=== PATIENT | female | born 1980 | race African-American/Black ===

== ENCOUNTER 2016-08-28 11:44 | Emergency (ER) | payer OTHER ==
[2016-08-28 11:49] VITALS: BMI 30.2
--- NOTE | 2016-08-28 12:57 | PDOC ---
History of Present Illness - History of Present Illness Initial Comments: 08/28/16 13:13 Patient is a 36 year old female with significant medical hx of uterine fibroids , ovarian cysts, and ectopic who is presenting to the ED with five days of heavy vaginal bleeding and abdominal cramping. Patient states her menses arrived two weeks early with unusual heavy bleeding and passing blood clots. The patient normally saturates 4-5 pads through a cycle, but this time she has saturated 10 pads and tampons per day, changing almost every hour. The patient also complains of severe abdominal cramping that has worsened over the course of her menses. The patient is currently sexually active. Denies fever, chills, nausea, vomiting, diarrhea. ; 1 miscarriage and 1 ectopic <Sierra Evans - Demarco Filed: 08/28/16 14:59> - General History Source: Patient Exam Limitations: No Limitations <Chu Sawyer - Last Filed: 08/28/16 15:37> - General Chief Complaint: Vaginal Bleeding Stated Complaint: ABD PAIN Time Seen by Provider: 08/28/16 12:30 Past History <Sierra Evans - Last Filed: 08/28/16 14:59> - Past Medical History Anemia: No Asthma: No Cancer: No Cardiac Disorders: No CVA: No COPD: No CHF: No Dementia: No Diabetes: No GI Disorders: No Disorders: No HTN: No Hypercholesterolemia: No Liver Disease: No Suicide Attempt (Hx): No Seizures: No Thyroid Disease: No Other medical history: ectopic preg - Surgical History Abdominal Surgery: No Appendectomy: No Cardiac Surgery: No Cholecystectomy: No Lung Surgery: No Neurologic Surgery: No Orthopedic Surgery: No - Reproductive History (#): 4 Para: 1 Cervical CA: No Dysfunctional Uterine Bleeding: No Ectopic : Yes Endometrial CA: No Polycystic Ovaries: No Therapeutic (s) & number: Yes (1) Tubal Ligation: No Spontaneous : 2 - Psycho/Social/Smoking Cessation Hx Anxiety: No Suicidal Ideation: No Smoking Status: Yes Smoking History: Former smoker Have you smoked in the past 12 months: Yes Number of Cigarettes Smoked Daily: 3 Information on smoking cessation initiated: No 'Breaking Loose' booklet given: 07/31/13 Hx Alcohol Use: No Drug/Substance Use Hx: No Substance Use Type: None Hx Substance Use Treatment: No <Chu Sawyer Filed: 08/28/16 15:37> - Past Medical History Allergies/Adverse Reactions: Allergies Allergy/AdvReac Type Severity Reaction Status Date / Time No Known Drug Allergies Allergy Verified 08/28/16 11:47 Home Medications: Ambulatory Orders No Home Medications 0 dose .ROUTE UTDICT 07/31/13 Ciprofloxacin [Cipro -] 250 mg PO BID #6 tablet 08/01/14 Phenazopyridine HCl [Pyridium] 200 mg PO TID PRN #10 tablet 08/01/14 Naproxen [Naprosyn -] 500 mg PO BID PRN #20 tablet 08/28/16 Review of Systems - Review of Systems Comments:: 08/28/16 13:13 GENERAL/CONSTITUTIONAL: No fever or chills. No weakness. HEAD, EYES, EARS, NOSE AND THROAT: No change in vision. No ear pain or discharge. No sore throat. CARDIOVASCULAR: No chest pain or shortness of breath. RESPIRATORY: No cough, wheezing, or hemoptysis. GASTROINTESTINAL: Abdominal cramping. No nausea, vomiting, diarrhea or constipation. GENITOURINARY: Vaginal bleeding. No dysuria, frequency, or change in urination. MUSCULOSKELETAL: No joint or muscle swelling or pain. No neck or back pain. SKIN: No rash NEUROLOGIC: No headache, vertigo, loss of consciousness, or change in strength/ sensation. <Sierra Evans - Last Filed: 08/28/16 14:59> *Physical Exam - Vital Signs Last Vital Signs Temp Pulse Resp BP Pulse Ox 97.7 F 62 18 125/85 100 08/28/16 11:47 08/28/16 11:47 08/28/16 11:47 08/28/16 11:47 08/28/16 11:47 - Physical Exam Comments: 08/28/16 13:14 GENERAL: Awake, alert, and fully oriented, in no acute distress HEAD: No signs of trauma EYES: PERRLA, EOMI, sclera anicteric, conjunctiva clear ENT: Auricles normal inspection, hearing grossly normal, nares patent, oropharynx clear without exudates. Moist mucosa NECK: Normal ROM, supple, no lymphadenopathy, JVD, or masses LUNGS: Breath sounds equal, clear to auscultation bilaterally. No wheezes, and no crackles HEART: Regular rate and rhythm, normal S1 and S2, no murmurs, rubs or gallops ABDOMEN: Soft, nontender, normoactive bowel sounds. No guarding, no rebound. No masses EXTREMITIES: Normal range of motion, no edema. No clubbing or cyanosis. No cords, erythema, or tenderness NEUROLOGICAL: Cranial nerves II through XII grossly intact. Normal speech, normal gait SKIN: Warm, Dry, normal turgor, no rashes or lesions noted. ENDOCRINE: No increased thirst. No abnormal weight change. HEMATOLOGIC/LYMPHATIC: No anemia, easy bleeding, or history of blood clots. ALLERGIC/IMMUNOLOGIC: No hives or skin allergy. PELVIC: No CMT. No adnexal tenderness. Os is closed. No blood in the vault. <Sierra Evans - Last Filed: 08/28/16 14:59> - Vital Signs Last Vital Signs Temp Pulse Resp BP Pulse Ox 97.7 F 62 18 125/85 100 08/28/16 11:47 08/28/16 11:47 08/28/16 11:47 08/28/16 11:47 08/28/16 11:47 <Chu Sawyer - Last Filed: 08/28/16 15:37> ED Treatment Course - LABORATORY CBC & Chemistry Diagram: 08/28/16 13:00 08/28/16 14:00 - RADIOLOGY Radiograph Interpretation: 08/28/16 14:59 Transvaginal US Impression: Fibroid uterus as described. Clinical correlation and follow-up recommended. Reported By: Juan Alberto Bird MD <Sierra Evans - Last Filed: 08/28/16 14:59> - LABORATORY CBC & Chemistry Diagram: 08/28/16 13:00 08/28/16 14:00 <Chu Sawyer - Last Filed: 08/28/16 15:37> Medical Decision Making - Medical Decision Making 08/28/16 12:55 A portion of this note was documented by scribe services under my direction. I have reviewed the details of the note, within reason, and agree with the documentation with the following case summary and management plan written by me. Patient treated in the ED. Nursing notes are reviewed and incorporated into the medical decision-making. Vital signs reviewed. Peripheral IV access obtained by the nurse, laboratory studies are drawn and sent, reviewed and interpreted by myself. Vital Signs Temp Pulse Resp BP Pulse Ox 97.7 F 62 18 125/85 100 08/28/16 11:47 08/28/16 11:47 08/28/16 11:47 08/28/16 11:47 08/28/16 11:47 36-year-old female patient with no medical history, 0-1, with one history of miscarriage and ectopic presents with vaginal bleeding. Patient reports that she typically has her periods once every month. However, last menstrual period was 2 weeks ago. She noticed in the last several days that she is having heavier bleeding than usual with up to 8-10 pads per day. She reported severe abdominal cramping. She is currently sexually active and may potentially be . Came into the ED for further evaluation. Differential includes threatened miscarriage, ectopic , dysfunctional uterine bleeding. We'll obviously need a test. Urine prexy test positive, we'll need labs including beta hCG, type and screen and transvaginal ultrasound. If urine preg test negative, we'll obtain chest vaginal ultrasound, urinalysis and reassess. 08/28/16 15:34 Ultrasound reviewed: Nabothian cysts and uterine fibroids. Labs reviewed. Beta HCG negative. UA unremarkable I suspect that the bleed is likely secondary to her uterine fibroids or potentially dysfunctional uterine bleeding. 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 If the symptoms are persistent, patient should consider potential oral control pills or discuss case with patient' s BITUMINOUS PAVING MACHINE OPERATOR about potential hysterectomy in the future as an elective procedure. Patient verbalizes understanding agrees with plan. I discussed the physical exam findings, ancillary test results and final diagnoses with the patient. I answered all of the patient's questions. The patient was satisfied with the care received and felt comfortable with the discharge plan and treatment plan. The patient will call their primary care physician within 24 hours to arrange follow-up and will return to the Emergency Department with any new, persistant or worsening symptoms. <Chu Sawyer - Last Filed: 08/28/16 15:37> *DC/Admit/Observation/Transfer - Attestations Scribe Attestion: 08/28/16 13:15 Documentation prepared by Sierra Evans, acting as medical library assistant for Chu Sawyer MD. <Sierra Evans - Last Filed: 08/28/16 14:59> - Discharge Dispostion Admit: No <Chu Sawyer - Last Filed: 08/28/16 15:37> Diagnosis at time of Disposition: Fibroid (bleeding) (uterine) Qualifiers: Uterine leiomyoma location: unspecified location Qualified Code(s): D25.9 - Leiomyoma of uterus, unspecified - Discharge Dispostion Disposition: HOME Condition at time of disposition: Stable - Prescriptions Prescriptions: Naproxen [Naprosyn -] 500 mg PO BID PRN #20 tablet PRN Reason: Pain - Patient Instructions Printed Discharge Instructions: DI for Uterine Fibroids, DI for Abnormal Uterine Bleeding Additional Instructions: Please take 500 mg naproxen every 12 hours as needed for pain. The bleeding is likely from your fibroids. It is important that you follow up with your diabetes trainer doctor. If you have uncontrollable pain, uncontrollable bleeding, please return to the ER for further evaluation. - Post Discharge Activity Work/School Note: Back to Work
[2016-08-28 13:16] LABS: EOSINOPHIL 0.9 % (0-4.5); MCH 31.9 pg (25.7-33.7); MCHC 33.8 g/dl (32.0-36.0); MEAN CELL VOLUME 94.4 fl (80-96); MEAN PLT VOLUME 9.7 fl (7.5-11.1); NEUTROPHILS 54.6 % (42.8-82.8); PLATELET COUNT 133 K/MM3 (134-434); RDW 13.3 % (11.6-15.6); WHITE BLOOD COUNT 4.6 K/mm3 (4.0-10.0)
[2016-08-28 13:17] LABS: URINE APPEARANCE SLCLOUDY; URINE BILIRUBIN NEGATIVE (NEGATIVE); URINE COLOR LTYELLOW; URINE GLUCOSE (UA) NEGATIVE (NEGATIVE); URINE KETONE NEGATIVE (NEGATIVE); URINE LEUK ESTERASE NEGATIVE (NEGATIVE); URINE NITRITE NEGATIVE (NEGATIVE); URINE PROTEIN NEGATIVE (NEGATIVE); URINE UROBILINOGEN NEGATIVE E.U./dl (0.2-1.0)
[2016-08-28 13:18] LABS: URINE BLOOD 3+ (NEGATIVE)
[2016-08-28] MEDS ORDERED: ACETAMINOPHEN 325 MG TABLET (FP) PO ONE (14:37)
[2016-08-28] MEDS ORDERED: KETOROLAC TROMETHAMINE 30 MG/1 ML VIAL IVPUSH ONE (14:37)
[2016-08-28] MEDS ORDERED: KETOROLAC TROMETHAMINE 30 MG/1 ML VIAL ONE (14:40)
[2016-08-28] MEDS ORDERED: ACETAMINOPHEN 325 MG TABLET (FP) ONE (14:40)
[2016-08-28] MEDS ORDERED: KETOROLAC TROMETHAMINE 30 MG/1 ML VIAL IM ONE (14:45)
[2016-08-28 15:01] LABS: ALBUMIN 3.5 g/dl (3.4-5.0); CALCIUM 8.6 mg/dL (8.5-10.1); COCKROFT - GAULT 129.7355; CREATININE 0.7 mg/dL (0.55-1.02); GLUCOSE,RANDOM 91 mg/dL (74-106); SGOT/AST 32 U/L (15-37)
[2016-08-28 15:03] LABS: ALK PHOS 42 U/L (45-117); BILIRUBIN,TOTAL 0.3 mg/dL (0.2-1.0); TOT PROT 6.5 g/dl (6.4-8.2)
[2016-08-28 15:06] LABS: ANION GAP 8 (8-16); CO2 25 mmol/L (21-32); SGPT/ALT 32 U/L (12-78)
[2016-08-28 16:26] VITALS: BP 110/77; PULSE 84; TEMP 98
== END 2016-08-28 16:21 | disposition home or self-care (01) ==
LOC: JER 11:44
PROC: 3E0233Z Introduction of Anti-inflammatory into Muscle, Percutaneous Approach (ICD-10-PCS; principal; 2016-08-28)
DX: D25.9 Leiomyoma of uterus, unspecified (principal)
CPT/HCPCS: 36415; 76830-TC; 80053; 81003; 81015; 84702; 84703; 85025; 86850; 86900; 86901; 87086; 99282-25

== ENCOUNTER 2016-12-18 10:17 | Emergency (ER) | payer OTHER ==
[2016-12-18 10:28] VITALS: BP 121/73; PULSE 85; TEMP 98.6; BMI 28.9
[2016-12-18] MEDS ORDERED: KETOROLAC TROMETHAMINE 60 MG/2 ML VIAL IM ONE (10:58)
[2016-12-18] MEDS ORDERED: KETOROLAC TROMETHAMINE 60 MG/2 ML VIAL ONE (11:07)
--- NOTE | 2016-12-18 11:09 | PDOC ---
History of Present Illness - General Chief Complaint: Pain Stated Complaint: INJURY Time Seen by Provider: 12/18/16 10:56 History Source: Patient Exam Limitations: No Limitations - History of Present Illness Initial Comments: 12/18/16 11:04 36 yr female with c/o right elbow injury [place]. Pt woke up today with pain to right shoulder, elbow and neck. 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 Pt is right hand dominant no medical history or allergies. Past History - Past Medical History Allergies/Adverse Reactions: Allergies Allergy/AdvReac Type Severity Reaction Status Date / Time No Known Drug Allergies Allergy Verified 12/18/16 10:25 Home Medications: Ambulatory Orders Cyclobenzaprine HCl [Flexeril -] 5 mg PO TID PRN #21 tablet 12/18/16 Naproxen [Naprosyn -] 500 mg PO BID PRN #14 tablet 12/18/16 Anemia: No Asthma: No Cancer: No Cardiac Disorders: No CVA: No COPD: No CHF: No Dementia: No Diabetes: No GI Disorders: No Disorders: No HTN: No Hypercholesterolemia: No Liver Disease: No Suicide Attempt (Hx): No Seizures: No Thyroid Disease: No Other medical history: DENIES. - Surgical History Abdominal Surgery: No Appendectomy: No Cardiac Surgery: No Cholecystectomy: No Lung Surgery: No Neurologic Surgery: No Orthopedic Surgery: No - Reproductive History (#): 4 Para: 1 Cervical CA: No Dysfunctional Uterine Bleeding: No Ectopic : Yes Endometrial CA: No Polycystic Ovaries: No Therapeutic (s) & number: Yes (1) Tubal Ligation: No Spontaneous : 2 - Psycho/Social/Smoking Cessation Hx Anxiety: No Suicidal Ideation: No Smoking Status: Yes Smoking History: Former smoker Have you smoked in the past 12 months: No Number of Cigarettes Smoked Daily: 3 Information on smoking cessation initiated: No 'Breaking Loose' booklet given: 07/31/13 Hx Alcohol Use: No Drug/Substance Use Hx: No Substance Use Type: None Hx Substance Use Treatment: No Review of Systems - Review of Systems Able to Perform ROS?: Yes Is the patient limited Honduran proficient: No Constitutional: No: Symptoms Reported HEENTM: No: Symptoms Reported Respiratory: No: Symptoms reported Cardiac (ROS): No: Symptoms Reported ABD/GI: No: Symptoms Reported : No: Symptoms Reported Musculoskeletal: Yes: See HPI *Physical Exam - Vital Signs Last Vital Signs Temp Pulse Resp BP Pulse Ox 98.6 F 85 19 121/73 100 12/18/16 10:25 12/18/16 10:25 12/18/16 10:25 12/18/16 10:25 12/18/16 10:25 - Physical Exam General Appearance: Yes: Nourished, Appropriately Dressed HEENT: positive: EOMI, KATHERINE Neck: positive: Supple, Tender lateral (right upper shoulder trapezius ttp ). negative: Tender, Lymphadenopathy (R), Lymphadenopathy (L), Rigidity, Tender midline Respiratory/Chest: positive: Lungs Clear, Normal Breath Sounds Cardiovascular: positive: Regular Rhythm, Regular Rate Musculoskeletal: positive: Normal Inspection Extremity: positive: Normal Capillary Refill, Normal Inspection Integumentary: positive: Normal Color, Dry, Warm Neurologic: positive: Fully Oriented, Alert, Normal Mood/Affect, Normal Response , Motor Strength 08/28 ED Treatment Course - ADDITIONAL ORDERS Additional order review: Laboratory Results 12/18/16 10:31 Urine HCG, Qual Negative - RADIOLOGY Radiology Studies Ordered: Category Date Time Status ELBOW-RIGHT [RAD] Stat Radiology 12/18/16 10:58 Ordered Medical Decision Making - Medical Decision Making 12/18/16 11:11 cc: right elbow pain after hitting it on water slide yesterday strains to the right upper shoulder reproducable with movement nv intact will xray to r/o fracture pt has bony tenderness tot he lateral elbow no swelling or defotmity toradol for pain 12/18/16 11:50 *DC/Admit/Observation/Transfer Diagnosis at time of Disposition: Muscle strain Contusion of elbow, right Qualifiers: Encounter type: initial encounter Qualified Code(s): S50.01XA - Contusion of right elbow, initial encounter - Discharge Dispostion Disposition: HOME Condition at time of disposition: Improved - Prescriptions Prescriptions: Cyclobenzaprine HCl [Flexeril -] 5 mg PO TID PRN #21 tablet PRN Reason: Muscle Spasms Naproxen [Naprosyn -] 500 mg PO BID PRN #14 tablet PRN Reason: Pain - Referrals Referrals: Silvestre Muhammad MD [Staff Physician] - - Patient Instructions Additional Instructions: follow with the orthopedist if symptoms worsen or persist apply warm compresses to area of pain at the shoulder every 3hrs for 20 minutes take naprosyn for pain and use flexeril for muscle spasm
== END 2016-12-18 11:58 | disposition home or self-care (01) ==
LOC: JERFT 10:17
PROC: 3E0233Z Introduction of Anti-inflammatory into Muscle, Percutaneous Approach (ICD-10-PCS; principal; 2016-12-18)
DX: S46.811A Strain of other muscles, fascia and tendons at shoulder and upper arm level, right arm, initial encounter (principal); S50.01XA Contusion of right elbow, initial encounter; W22.8XXA Striking against or struck by other objects, initial encounter; Y93.18 Activity, surfing, windsurfing and boogie boarding; Y92.838 Other recreation area as the place of occurrence of the external cause; Y99.8 Other external cause status
CPT/HCPCS: 73070-TC-RT; 84703; 99281-25

== ENCOUNTER 2017-04-29 10:53 | Emergency (ER) | payer OTHER ==
[2017-04-29 11:10] VITALS: BP 110/71; PULSE 78; TEMP 98; BMI 29.8
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
[2017-04-29] MEDS ORDERED: KETOROLAC TROMETHAMINE 60 MG/2 ML VIAL IM ONE (11:50)
[2017-04-29] MEDS ORDERED: KETOROLAC TROMETHAMINE 60 MG/2 ML VIAL ONE (11:53)
== END 2017-04-29 12:17 | disposition home or self-care (01) ==
LOC: JERFT 10:53
PROC: 3E0233Z Introduction of Anti-inflammatory into Muscle, Percutaneous Approach (ICD-10-PCS; principal; 2017-04-29)
DX: S16.1XXA Strain of muscle, fascia and tendon at neck level, initial encounter (principal); V44.5XXA Car driver injured in collision with heavy transport vehicle or bus in traffic accident, initial encounter; Y92.414 Local residential or business street as the place of occurrence of the external cause; Y93.89 Activity, other specified; Y99.9 Unspecified external cause status
CPT/HCPCS: 84703; 99281-25

== ENCOUNTER 2017-08-15 11:42 | Emergency (ER) | payer OTHER ==
[2017-08-15 12:06] VITALS: BP 114/76; PULSE 85; TEMP 98; BMI 27.4
--- NOTE | 2017-08-15 12:32 | PDOC ---
History of Present Illness - General Chief Complaint: Pain, Acute Stated Complaint: RT FOOT PAIN Time Seen by Provider: 08/15/17 12:08 - History of Present Illness Initial Comments: 08/15/17 12:31 CHIEF COMPLAINT: foot pain, other HISTORY OF PRESENT ILLNESS: 37 yo F with no PMH presents to fast track with pain to arch/bottom of R foot x "a couple weeks." Patient reports the pain has gradually worsened over time and is worst when first stepping on foot in the morning. She denies any injury or trauma to her foot, but reports she " is all over the place walking all the time" at work. She denies any calf pain, shortness of breath, palpitations, OCP/hormone use, recent travel, or prolonged sedentary periods. Patient also c/o of incidental "bite" to R buttock that now is painful and swollen, but denies any fever, chills, vomiting or diarrhea. PAST MEDICAL HISTORY: Denies past medical history FAMILY HISTORY: Denies SOCIAL HISTORY: Denies tobacco, alcohol, illicit drug use. SURGICAL HISTORY: Denies ALLERGIES: No known drug allergies REVIEW OF SYSTEMS General/Constitutional: Denies fever or chills. Denies weakness, weight change. HEENT: Denies change in vision. Denies ear pain or discharge. Denies sore throat. Cardiovascular: Denies chest pain or shortness of breath. Respiratory: Denies cough, wheezing, or hemoptysis. Gastrointestinal: Denies nausea, vomiting, diarrhea or constipation. Denies rectal bleeding. Genitourinary: Denies dysuria, frequency, or change in urination. Musculoskeletal: Right foot pain. Denies joint or muscle swelling or pain. Denies neck or back pain. Skin and breasts: "I felt like I got bit the other day by something, and it itched, and now it is painful to sit on." PHYSICAL EXAM General Appearance: Well-appearing, appropriately dressed. No apparent distress , no intoxication. HEENT: EOMI, PERRLA, normal ENT inspection, normal voice, TMs normal, pharynx normal. No conjunctival pallor. No photophobia, scleral icterus. Respiratory/Chest: Lungs CTAB. Cardiovascular: RRR. S1, S2. Musculoskeletal/Extremities: Mild tenderness to medial aspect of R foot at base of arch. No calf tenderness, negative Milton's sign. Normal inspection. FROM of all extremities, normal capillary refill. Pelvis Stable. No CVA tenderness. No tenderness to extremities, pedal edema, swelling, erythema or deformity. Integumentary: Erythematous, mildly tender lesion 2 cm in diameter. Otherwise appropriate color, dry, warm. No cyanosis, jaundice or rash Neurologic: therapeutic recreation specialist II-XII intact. Fully oriented, alert. Appropriate mood/affect. Motor strength 5/5. No appreciable EOM palsy, facial droop or sensory deficit. 08/15/17 12:32 Past History - Past Medical History Allergies/Adverse Reactions: Allergies Allergy/AdvReac Type Severity Reaction Status Date / Time No Known Drug Allergies Allergy Verified 04/29/17 11:04 Home Medications: Ambulatory Orders Footcare,Miscellaneous [Plantar Fasciitis Arch Sleeve] 1 each MC ASDIR #1 each 08/15/17 Ibuprofen 600 mg PO TID #20 tablet 08/15/17 Sulfamethoxazole/Trimethoprim [Bactrim Ds -] 1 tab PO BID #14 tablet 08/15/17 Anemia: No Asthma: No Cancer: No Cardiac Disorders: No CVA: No COPD: No CHF: No Dementia: No Diabetes: No GI Disorders: No Disorders: No HTN: No Hypercholesterolemia: No Liver Disease: No Seizures: No Thyroid Disease: No - Surgical History Abdominal Surgery: No Appendectomy: No Cardiac Surgery: No Cholecystectomy: No Lung Surgery: No Neurologic Surgery: No Orthopedic Surgery: No - Reproductive History (#): 4 Para: 1 Cervical CA: No Dysfunctional Uterine Bleeding: No Ectopic : Yes Endometrial CA: No Polycystic Ovaries: No Therapeutic (s) & number: Yes (1) Tubal Ligation: No Spontaneous : 2 - Suicide/Smoking/Psychosocial Hx Smoking Status: Yes Smoking History: Former smoker Have you smoked in the past 12 months: No Number of Cigarettes Smoked Daily: 3 Information on smoking cessation initiated: No 'Breaking Loose' booklet given: 07/31/13 Hx Alcohol Use: No Drug/Substance Use Hx: No Substance Use Type: None Hx Substance Use Treatment: No *Physical Exam - Vital Signs Last Vital Signs Temp Pulse Resp BP Pulse Ox 98 F 85 20 114/76 100 08/15/17 12:03 08/15/17 12:03 08/15/17 12:03 08/15/17 12:03 08/15/17 12:03 Medical Decision Making - Medical Decision Making 08/15/17 12:36 37 yo F with no PMH presents to fast track with pain to arch/bottom of R foot x "a couple weeks." -Upreg Clinical presentation consistent with plantar fasciitis. Will treat with NSAIDS and foot sling. Patient skin lesion consistent with developing abscess, however no I&D indicated at this time. Area circumscribed with marker, will treat with abx. *DC/Admit/Observation/Transfer Diagnosis at time of Disposition: Plantar fasciitis of right foot Cellulitis Qualifiers: Site of cellulitis: buttock Qualified Code(s): L03.317 - Cellulitis of buttock - Discharge Dispostion Disposition: HOME Condition at time of disposition: Stable Admit: No - Prescriptions Prescriptions: Footcare,Miscellaneous [Plantar Fasciitis Arch Sleeve] 1 each MC ASDIR #1 each Ibuprofen 600 mg PO TID #20 tablet Sulfamethoxazole/Trimethoprim [Bactrim Ds -] 1 tab PO BID #14 tablet - Referrals Referrals: Viktor Palmer MD [Staff Physician] - - Patient Instructions Printed Discharge Instructions: DI for Cellulitis -- Adult, DI for Plantar Fasciitis Additional Instructions: Please take medications as prescribed; complete the ENTIRE course of antibiotics even if your symptoms have resolved. Follow up if your foot continues to have pain after 7 days. If you develop any fever, chills, nausea, vomiting, diarrhea, or the area of redness becomes more swollen, hot, or painful , or extends beyond the area circled after 48 hours of taking antibiotics, please return to the ER immediately. - Post Discharge Activity Forms/Work/School Notes: Back to Work
== END 2017-08-15 13:00 | disposition home or self-care (01) ==
LOC: JERFT 11:42
DX: M72.2 Plantar fascial fibromatosis (principal); L03.317 Cellulitis of buttock
CPT/HCPCS: 84703; 99281-25

== ENCOUNTER 2017-11-10 17:14 | Emergency (ER) | payer OTHER ==
--- NOTE | 2017-11-10 17:23 | PDOC ---
Rapid Medical Evaluation Time Seen by Provider: 11/10/17 17:21 Medical Evaluation: Allergies Allergy/AdvReac Type Severity Reaction Status Date / Time No Known Drug Allergies Allergy Verified 04/29/17 11:04 I have performed a brief in-person evaluation of this patient. The patient presents with a chief complaint of: tripped and fell backwards. pain to right foot and ankle as well as right shoulder. pt took ibuprofen 2 hours ago. Pertinent physical exam findings: pain with palpation of right arch. Full ROM of right foot, ankle and shoulder I have ordered the following: hcg The patient will proceed to the ED for further evaluation. Discharge Disposition - Diagnosis Foot pain, right - Referrals - Patient Instructions - Post Discharge Activity
[2017-11-10 17:25] VITALS: BP 111/66; PULSE 88; TEMP 98.6; BMI 31.1
--- NOTE | 2017-11-10 17:55 | PDOC ---
History of Present Illness - General Chief Complaint: Injury Stated Complaint: FALL/INJURY Time Seen by Provider: 11/10/17 17:21 History Source: Patient Exam Limitations: Clinical Condition - History of Present Illness Initial Comments: 11/10/17 17:52 Patient with no cervical past medical history presenting with complaints of right shoulder pain and ankle pain status post tripping while going at down stairs and falling. She described shoulder pain as muscle stretch and ankle pain as throbbing 8 out of 10 pain which woke her up from her sleep. Denies previous injury or trauma. She took Motrin for pain which is helping Timing/Duration: 4-6 hours Severity: moderate Modifying Factors: improves with: rest. worse with: movement Past History - Past Medical History Allergies/Adverse Reactions: Allergies Allergy/AdvReac Type Severity Reaction Status Date / Time No Known Drug Allergies Allergy Verified 11/10/17 17:23 Home Medications: Ambulatory Orders Leg Brace [Ankle Brace] 1 each MC DAILY #1 each 11/10/17 Methocarbamol [Robaxin -] 500 mg PO TID PRN #21 tablet 11/10/17 Naproxen 500 mg PO BID PRN #20 tablet. 11/10/17 Anemia: No Asthma: No Cancer: No Cardiac Disorders: No CVA: No COPD: No CHF: No DVT: No Dementia: No Diabetes: No GI Disorders: No Disorders: No HTN: No Hypercholesterolemia: No Liver Disease: No Seizures: No Thyroid Disease: No - Surgical History Abdominal Surgery: No Appendectomy: No Cardiac Surgery: No Cholecystectomy: No Lung Surgery: No Neurologic Surgery: No Orthopedic Surgery: No - Reproductive History (#): 4 Para: 1 Cervical CA: No Dysfunctional Uterine Bleeding: No Ectopic : Yes Endometrial CA: No Polycystic Ovaries: No Therapeutic (s) & number: Yes (1) Tubal Ligation: No Spontaneous : 2 - Suicide/Smoking/Psychosocial Hx Smoking Status: Yes Smoking History: Former smoker Have you smoked in the past 12 months: No Number of Cigarettes Smoked Daily: 3 Information on smoking cessation initiated: No 'Breaking Loose' booklet given: 07/31/13 Hx Alcohol Use: No Drug/Substance Use Hx: No Substance Use Type: None Hx Substance Use Treatment: No Review of Systems - Review of Systems Able to Perform ROS?: Yes Is the patient limited Mongolian proficient: No Constitutional: No: Chills, Diaphoresis, Fever, Loss of Appetite, Malaise, Night Sweats, Weakness, Weight Stable, Unintentional Wgt. Loss, Unexplained wgt Loss, Other HEENTM: No: Eye Pain, Blurred Vision, Tearing, Recent change in vision, Double Vision, Cataracts, Ear Pain, Ocular Prothesis, Ear Discharge, Nose Pain, Nose Congestion, Tinnitus, Nose Bleeding, Hearing Loss, Throat Pain, Throat Swelling , Mouth Pain, Dental Problems, Difficulty Swallowing, Mouth Swelling, Other Respiratory: No: Cough, Orthopnea, Shortness of Breath, SOB with Exertion, SOB at Rest, Stridor, Wheezing, Productive cough, Hemoptysis, Other Cardiac (ROS): No: Chest Pain, Edema, Irregular Heart Rate, Lightheadedness, Palpitations, Syncope, Chest Tightness, Other ABD/GI: No: Abdominal Distended, Abd. Pain w/ defecation, Blood Streaked Bowels , Constipated, Diarrhea, Difficulty Swallowing, Nausea, Poor Appetite, Poor Fluid Intake, Rectal Bleeding, Vomiting, Indigestion, Abdominal cramping, Tarry Stools, Other Musculoskeletal: Yes: Joint Pain (right shoulder and ankle pain), Muscle Pain ( right shoulder and ankle pain). No: Back Pain, Gout, Joint Swelling, Muscle Weakness, Neck Pain, Joint Stiffness, Other Integumentary: No: Bruising, Change in Color, Change in Hair/Nails, Dryness, Erythema, Flushing, Lesions, Lumps, Pallor, Pruritus, Rash, Sweating, Other Neurological: No: Headache, Numbness, Paresthesia, Pre-Existing Deficit, Seizure , Tingling, Tremors, Weakness, Unsteady Gait, Ataxia, Dizziness, Other Psychiatric: No: Anxiety, Depression, Frequent Crying, Stressors, Sleep Pattern Change, Emotional Problems, Mood Swings, Change in Appetite, Other Endocrine: No: Excessive Sweating, Flushing, Intolerance to Cold, Intolerance to Heat, Increased Hunger, Increased Thirst, Increased Urine, Unexplained Weight Gain, Unexplained Weight Loss, Change in Weight, Other Hematologic/Lymphatic: No: Anemia, Blood Clots, Easy Bleeding, Easy Bruising, Bleeding Diathesis, Lymph Node Abnormalities, Swollen Glands, Other All Other Systems: Reviewed and Negative *Physical Exam - Vital Signs Last Vital Signs Temp Pulse Resp BP Pulse Ox 98.6 F 88 18 111/66 100 07/18/18 17:23 11/10/17 17:23 11/10/17 17:23 11/10/17 17:23 11/10/17 17:23 - Physical Exam Comments: 11/10/17 17:56 GENERAL: Well developed, well nourished. Awake and alert. No acute distress. HEENT: Normocephalic, atraumatic. PERRLA, EOMI. No conjunctival pallor. Sclera are non- icteric. Moist mucous membranes. Oropharynx is clear. NECK: Supple. Full ROM. No JVD. Carotid pulses 2+ and symmetric, without bruits. No thyromegaly. No lymphadenopathy. CARDIOVASCULAR: Regular rate and rhythm. No murmurs, rubs, or gallops. Distal pulses are 2+ and symmetric. PULMONARY: No evidence of respiratory distress. Lungs clear to auscultation bilaterally. No wheezing, rales or rhonchi. ABDOMINAL: Soft. Non-tender. Non-distended. No rebound or guarding. No organomegaly. Normoactive bowel sounds. MUSCULOSKELETAL Mild tenderness over the medial side of right ankle and foot. Pain increased with external rotation of right foot. Mild tenderness over right paracervical muscle of C4-C7 the neck. Mild tenderness over right AC joints. The range of motion of neck and shoulder. 5/5 strength right shoulder and upper arm EXTREMITIES: No cyanosis. No clubbing. No edema. No calf tenderness. SKIN: Warm and dry. Normal capillary refill. No rashes. No jaundice. NEUROLOGICAL: Alert, awake, appropriate. Cranial nerves 2-12 intact. No deficits to light touch and temperature in face, upper extremities and lower extremities. No motor deficits in the in face, upper extremities and lower extremities. Normoreflexic in the upper and lower extremities. Normal speech. Toes are down- going bilaterally. Gait is normal without ataxia. PSYCHIATRIC: Cooperative. Good eye contact. Appropriate mood and affect. General Appearance: Yes: Nourished, Appropriately Dressed. No: Apparent Distress ED Treatment Course - RADIOLOGY Radiology Studies Ordered: Category Date Time Status ANKLE & FOOT-RIGHT* [RAD] Stat Radiology 11/10/17 17:49 Ordered SHOULDER-RIGHT [RAD] Stat Radiology 11/10/17 17:50 Ordered Medical Decision Making - Medical Decision Making 11/10/17 17:59 He she willPast medical history presenting with right ankle foot and shoulder pain is post fall. Denies of acute fracture or dislocation on clinical exam. Symptoms likely strain from fall. X-ray of right ankle/foot and shouler ordered to rule out pathology in tube is on imaging results 11/10/17 19:31 x-ray shows no fracture or dislocation of right ankle and foot.x-ray of right should normal. right ankle wrapped with Soren bandage. Stable for discharged with orthopedic follow-up *DC/Admit/Observation/Transfer Diagnosis at time of Disposition: Foot pain, right Ankle sprain Qualifiers: Encounter type: initial encounter Involved ligament of ankle: unspecified ligament Laterality: right Qualified Code(s): S93.401A - Sprain of unspecified ligament of right ankle, initial encounter Right shoulder strain Qualifiers: Encounter type: initial encounter Qualified Code(s): S46.911A - Strain of unspecified muscle, fascia and tendon at shoulder and upper arm level, right arm , initial encounter - Discharge Dispostion Disposition: HOME Condition at time of disposition: Stable Decision to Admit order: No - Prescriptions Prescriptions: Leg Brace [Ankle Brace] 1 each MC DAILY #1 each Methocarbamol [Robaxin -] 500 mg PO TID PRN #21 tablet PRN Reason: shoulder spasm Naproxen 500 mg PO BID PRN #20 tablet. PRN Reason: ankle and shoulder pain - Referrals Referrals: Gene Perez MD [Primary Care Provider] - Jeet Leon MD [Staff Physician] - - Patient Instructions Printed Discharge Instructions: Ankle Sprain, DI for Ankle Sprain Additional Instructions: take medication as prescribed as needed for pain. apply heat twice/day as needed for pain to ankle and shoulder follow-up with orthopedics if symptoms persist - Post Discharge Activity Forms/Work/School Notes: Back to Work
== END 2017-11-10 19:40 | disposition home or self-care (01) ==
LOC: JERFT 17:14
PROC: 2W3QX1Z Immobilization of Right Lower Leg using Splint (ICD-10-PCS; principal; 2017-11-10)
DX: S46.891A Other injury of other muscles, fascia and tendons at shoulder and upper arm level, right arm, initial encounter (principal); S93.401A Sprain of unspecified ligament of right ankle, initial encounter; W10.8XXA Fall (on) (from) other stairs and steps, initial encounter; Y93.89 Activity, other specified; Y92.89 Other specified places as the place of occurrence of the external cause; Y99.8 Other external cause status
CPT/HCPCS: 73030-TC-RT-FY; 73610-TC-RT-FY; 73630-TC-RT-FY; 84703; 99281-25

== ENCOUNTER 2018-10-27 19:29 | Emergency (ER) | payer OTHER ==
[2018-10-27 19:37] VITALS: BMI 30.2
[2018-10-27] MEDS ORDERED: ACETAMINOPHEN 325 MG TABLET (FP) PO ONE (20:05)
--- NOTE | 2018-10-27 20:20 | PDOC ---
History of Present Illness - General Chief Complaint: Vaginal Bleeding Stated Complaint: VAGINAL BLEEDING Time Seen by Provider: 10/27/18 19:49 History Source: Patient Exam Limitations: No Limitations - History of Present Illness Travel History: No Initial Comments: 10/27/18 20:13 HISTORY OF PRESENT ILLNESS: 38-year-old woman who is 5 para 1 with 2 tubal pregnancies presents emergency department for evaluation of vaginal bleeding for the past 8 days. Patient reports her period was a spot in nature for the first 7 days and then became increasingly heavy yesterday with passage of clots. Patient reports needing to use a tampon plus menstrual pads to help control bleeding for a couple of hours. At that time she was saturating the tampon but not the pads. Patient reports having regular menstrual periods each lasting 5-7 days occurring every 28 days. Her last menstrual period was 09/19 and lasted for 4 days. Patient reports she's been having unprotected sex with one male partner in an attempt to try to conceive. Patient reports having waxing and waning lower abdominal pulling pain ranging from 5/10-9/10. Currently is 5/10. No recent travel or sick contacts. PAST MEDICAL HISTORY: see HPI SURGICAL HISTORY: Denies ALLERGIES: No known drug allergies REVIEW OF SYSTEMS General/Constitutional: Denies fever or chills. Denies weakness, weight change. HEENT: Denies change in vision. Denies ear pain or discharge. Denies sore throat. Cardiovascular: Denies chest pain or shortness of breath. Respiratory: Denies cough, wheezing, or hemoptysis. Gastrointestinal: Denies nausea, vomiting, diarrhea or constipation. Denies rectal bleeding. Genitourinary: see HPI Musculoskeletal: Denies joint or muscle swelling or pain. Denies neck or back pain. Skin and breasts: Denies rash or easy bruising. Neurologic: Denies headache, vertigo, loss of consciousness, or loss of sensation. Psychiatric: Denies depression or anxiety. Endocrine: Denies increased thirst. Denies abnormal weight change. Hematologic/Lymphatic: Denies anemia, easy bleeding, or history of blood clots. Allergic/Immunologic: Denies hives or skin allergy. Denies latex allergy. PHYSICAL EXAM General Appearance: Well-appearing, appropriately dressed. No apparent distress , no intoxication. HEENT: EOMI, PERRLA, normal ENT inspection, normal voice, TMs normal, pharynx normal. No conjunctival pallor. No photophobia, scleral icterus. Respiratory/Chest: Lungs CTAB. No shortness of breath, chest tenderness, respiratory distress, accessory muscle use. No crackles, rales, rhonchi, stridor , wheezing, dullness Cardiovascular: RRR. S1, S2. No JVD, murmur, bradycardia, tachycardia. Vascular Pulses: Dorsalis-Pedis (R): 2+, Dorsalis-Pedis (L): 2+ Gastrointestinal/Abdominal: Normal bowel sounds. Abdomen soft, non-distended. No tenderness or rebound tenderness. No organomegaly, pulsatile mass, guarding, hernia, hepatomegaly, splenomegaly. Lymphatic: No adenopathy, tenderness. Musculoskeletal/Extremities: Normal inspection. FROM of all extremities, normal capillary refill. Pelvis Stable. No CVA tenderness. No tenderness to extremities, pedal edema, swelling, erythema or deformity. Past History - Past Medical History Allergies/Adverse Reactions: Allergies Allergy/AdvReac Type Severity Reaction Status Date / Time No Known Drug Allergies Allergy Verified 10/27/18 19:33 Home Medications: Ambulatory Orders NK [No Known Home Medication] 10/27/18 Anemia: No Asthma: No Cancer: No Cardiac Disorders: No CVA: No COPD: No CHF: No DVT: No Dementia: No Diabetes: No GI Disorders: No Disorders: No HTN: No Hypercholesterolemia: No Liver Disease: No Seizures: No Thyroid Disease: No - Surgical History Abdominal Surgery: No Appendectomy: No Cardiac Surgery: No Cholecystectomy: No Lung Surgery: No Neurologic Surgery: No Orthopedic Surgery: No - Reproductive History (#): 4 Para: 1 Cervical CA: No Dysfunctional Uterine Bleeding: No Ectopic : Yes Endometrial CA: No Polycystic Ovaries: No Therapeutic (s) & number: Yes (1) Tubal Ligation: No Spontaneous : 2 - Suicide/Smoking/Psychosocial Hx Smoking Status: Yes Smoking History: Never smoked Have you smoked in the past 12 months: No Number of Cigarettes Smoked Daily: 3 Information on smoking cessation initiated: No 'Breaking Loose' booklet given: 07/31/13 Hx Alcohol Use: No Drug/Substance Use Hx: No Substance Use Type: None Hx Substance Use Treatment: No Abd/GI Specific PMHX - Complaint Specific PMHX Colitis: No Diverticulitis: No Gall Bladder Disease: No GERD: No Hepatitis: No Irritable Bowel Synd (IBS): No Pancreatitis: No GI Ulcer Disease: No *Physical Exam - Vital Signs Last Vital Signs Temp Pulse Resp BP Pulse Ox 98.6 F 67 16 106/62 100 10/27/18 19:34 10/27/18 19:34 10/27/18 19:34 10/27/18 19:34 10/27/18 19:34 - Physical Exam Comments:: 10/28/18 00:24 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 Female Pelvic Exam: positive: normal external exam, cervical os closed, normal adnexa, normal size ovaries, vaginal bleeding (noted from Cervical os. No pooling present. No clots noted.). negative: CMT, discharge, adnexal tenderness ED Treatment Course - LABORATORY CBC & Chemistry Diagram: 10/27/18 20:10 10/27/18 20:10 Medical Decision Making - Medical Decision Making 10/27/18 20:20 A/P: 38-year-old woman with lower abdominal pain and vaginal bleeding for 8 days Differential diagnosis includes but is not limited to ectopic , PID, intrauterine , normal menstrual periods, UTI, threatened Ab, missed Ab , inevitable Ab Labs including type and screen and beta hCG Urine including and culture Tylenol 975 mg orally now Reassess 10/27/18 22:22 Transvaginal ultrasound as read by imaging proposition player: No evidence of intrauterine gestation. No obvious sonographic evidence of ectopic . Multiple uterine masses which statistically most likely represent fibroids the largest of which measures maximally 7.2 cm in diameter. Previous type and screen and negative. Awaiting results of today's type and screen prior to [facility]. 10/27/18 23:22 Blood type A+ [facility] IM. Discharge home 10/27/18 23:22 *DC/Admit/Observation/Transfer Diagnosis at time of Disposition: Vaginal bleeding affecting early - Discharge Dispostion Disposition: HOME Condition at time of disposition: Fair Decision to Admit order: No - Referrals Referrals: Gene Perez MD [Primary Care Provider] - - Patient Instructions Additional Instructions: Take your vitamins. Keep well-hydrated. Avoid tobacco and alcohol as well as illegal drugs. Make an appointment with your HYDRAMATIC SPECIALIST for reevaluation. Return to the emergency department immediately for severe pain, vaginal bleeding that requires more than 2 pads per hour or for any other symptoms. Thank you very much for choosing us to provide your emergent health care needs. - Post Discharge Activity Forms/Work/School Notes: Back to Work
[2018-10-27] MEDS ORDERED: ACETAMINOPHEN 325 MG TABLET (FP) ONE (20:43)
[2018-10-27 20:51] LABS: BASO % 1.1 % (0-2.0); EOS % 3.7 % (0-4.5); HEMOGLOBIN 11.9 GM/dL (10.7-15.3); LYMPH % 59.8 % (8-40); MCH 32.5 pg (25.7-33.7); MCHC 34.2 g/dl (32.0-36.0); MEAN PLT VOLUME 9.4 fl (7.5-11.1); MONO % 5.2 % (3.8-10.2); NEUT % 30.2 % (42.8-82.8); PLATELET COUNT 195 K/MM3 (134-434); RBC 3.68 M/mm3 (3.60-5.2); RDW 13.6 % (11.6-15.6); WHITE BLOOD COUNT 4.3 K/mm3 (4.0-10.0)
[2018-10-27 21:05] LABS: INR 0.97 (0.83-1.09); PROTHROMBIN TIME (PATIENT) 11.5 SEC (9.7-13.0)
[2018-10-27 21:20] LABS: BLOOD UREA NITROGEN 13.7 mg/dL (7-18); CALCIUM 8.5 mg/dL (8.5-10.1); CREATININE 0.9 mg/dL (0.55-1.3)
[2018-10-27 21:25] LABS: HCG,QUALITATIVE URINE Positive
[2018-10-27 21:44] LABS: PLATELET ESTIMATE ADEQUATE
[2018-10-27 22:45] LABS: PH,URINE 5.5 (5.0-8.0); URINE APPEARANCE CLEAR; URINE BILIRUBIN NEGATIVE (NEGATIVE); URINE COLOR YELLOW; URINE GLUCOSE (UA) NEGATIVE (NEGATIVE); URINE KETONE TRACE (NEGATIVE); URINE LEUK ESTERASE NEGATIVE (NEGATIVE); URINE NITRITE NEGATIVE (NEGATIVE); URINE PROTEIN NEGATIVE (NEGATIVE); URINE UROBILINOGEN 0.2 mg/dL (0.2-1.0)
[2018-10-27 22:46] LABS: EPI CELLS 10.8 /HPF (0-5/HPF); HYALINE CASTS 22 /lpf (0-8); URINE BACTERIA 117.5 /hpf (NEGATIVE); URINE RBC 4 /hpf (0-4)
[2018-10-27] MEDS ORDERED: RHO(D) IMMUNE GLOBULIN 1,500 UNIT DISP.SYRIN IM ONE ×2 (23:08→23:51)
[2018-10-27 23:11] LABS: URINE CRYSTALS CALCIUM OXALATE /hpf
[2018-10-27 23:32] LABS: URINE WBC 1.9 /hpf (0-5)
--- NOTE | 2018-10-27 23:55 | PDOC ---
*Physical Exam - Vital Signs Last Vital Signs Temp Pulse Resp BP Pulse Ox 98.6 F 67 16 106/62 100 10/27/18 19:34 10/27/18 19:34 10/27/18 19:34 10/27/18 19:34 10/27/18 19:34 ED Treatment Course - LABORATORY CBC & Chemistry Diagram: 10/27/18 20:10 10/27/18 20:10 - ADDITIONAL ORDERS Additional order review: Laboratory Results 10/27/18 10/27/18 10/27/18 20:10 20:10 20:10 PT with INR INR Sodium 142 Potassium 4.0 Chloride 109 H Carbon Dioxide 28 Anion Gap 5 L BUN 13.7 Creatinine 0.9 Est GFR (CKD-EPI)AfAm 95.34 Est GFR (CKD-EPI)NonAf 82.26 Random Glucose 92 Calcium 8.5 Beta HCG, Quant 25.5 Urine Color Yellow Urine Appearance Clear Urine pH 5.5 Ur Specific Cooks 1.038 H Urine Protein Negative Urine Glucose (UA) Negative Urine Ketones Trace H Urine Blood Trace Urine Nitrite Negative Urine Bilirubin Negative Urine Urobilinogen 0.2 Ur Leukocyte Esterase Negative Urine WBC (Auto) 1.9 Urine RBC (Auto) 4 Urine Casts (Auto) 22 U Pathogenic Cast Auto None U Epithel Cells (Auto) 10.8 Urine Crystals (Auto) Calcium oxalate Urine Bacteria (Auto) 117.5 Urine HCG, Qual Positive Blood Type A NEGATIVE Antibody Screen Negative Unit Expiration Date [id number] 10/27/18 20:10 PT with INR 11.50 INR 0.97 Sodium Potassium Chloride Carbon Dioxide Anion Gap BUN Creatinine Est GFR (CKD-EPI)AfAm Est GFR (CKD-EPI)NonAf Random Glucose Calcium Beta HCG, Quant Urine Color Urine Appearance Urine pH Ur Specific Cooks Urine Protein Urine Glucose (UA) Urine Ketones Urine Blood Urine Nitrite Urine Bilirubin Urine Urobilinogen Ur Leukocyte Esterase Urine WBC (Auto) Urine RBC (Auto) Urine Casts (Auto) U Pathogenic Cast Auto U Epithel Cells (Auto) Urine Crystals (Auto) Urine Bacteria (Auto) Urine HCG, Qual Blood Type Antibody Screen Unit Expiration Date 10/27/18 20:10 RBC 3.68 MCV 95.0 MCHC 34.2 RDW 13.6 MPV 9.4 Neutrophils % 30.2 L D Lymphocytes % 59.8 H D Monocytes % 5.2 Eosinophils % 3.7 D Basophils % 1.1 - Medications Given in the ED: ED Medications Discontinued Medications Generic Name Dose Route Start Last Admin Trade Name Luz PRN Reason Stop Dose Admin Acetaminophen 975 mg 10/27/18 20:05 10/27/18 20:56 Tylenol - PO 10/27/18 20:06 975 mg ONCE ONE Administration Medical Decision Making - Medical Decision Making 10/27/18 23:54 Case reviewed, agree with assessment and plan *DC/Admit/Observation/Transfer Diagnosis at time of Disposition: Vaginal bleeding affecting early - Discharge Dispostion Disposition: HOME Condition at time of disposition: Fair - Referrals Referrals: Gene Perez MD [Primary Care Provider] - - Patient Instructions Additional Instructions: Take your vitamins. Keep well-hydrated. Avoid tobacco and alcohol as well as illegal drugs. Make an appointment with your TILE SORTER for reevaluation. Return to the emergency department immediately for severe pain, vaginal bleeding that requires more than 2 pads per hour or for any other symptoms. Thank you very much for choosing us to provide your emergent health care needs. - Post Discharge Activity Forms/Work/School Notes: Back to Work
[2018-10-28 00:58] VITALS: BP 129/86; PULSE 66; TEMP 97.8
== END 2018-10-28 00:58 | disposition home or self-care (01) ==
LOC: JER 19:29
PROC: 3E023GC Introduction of Other Therapeutic Substance into Muscle, Percutaneous Approach (ICD-10-PCS; principal; 2018-10-27)
DX: O26.891 Other specified pregnancy related conditions, first trimester (principal); Z3A.00 Weeks of gestation of pregnancy not specified; N93.9 Abnormal uterine and vaginal bleeding, unspecified
CPT/HCPCS: 36415; 76817-TC; 80048; 81003; 84702; 84703; 85025; 85610; 86850; 86900; 86901; 86999; 87086; 99282-25; J1561

== ENCOUNTER 2018-10-30 12:17 | Emergency (ER) | payer OTHER ==
[2018-10-30 12:42] VITALS: BP 120/77; PULSE 85; TEMP 98.2; BMI 30.2
--- NOTE | 2018-10-30 12:54 | PDOC ---
History of Present Illness - General Chief Complaint: Vaginal Bleeding Stated Complaint: VAGINAL BLEEDING Time Seen by Provider: 10/30/18 12:33 History Source: Patient - History of Present Illness Associated Symptoms: denies: nausea/vomiting, weakness Past History - Travel Traveled outside of the country in the last 30 days: No Close contact w/someone who was outside of country & ill: No - Past Medical History Allergies/Adverse Reactions: Allergies Allergy/AdvReac Type Severity Reaction Status Date / Time No Known Drug Allergies Allergy Verified 10/30/18 12:29 Home Medications: Ambulatory Orders NK [No Known Home Medication] 10/27/18 Anemia: No Asthma: No Cancer: No Cardiac Disorders: No CVA: No COPD: No CHF: No DVT: No Dementia: No Diabetes: No GI Disorders: No Disorders: No HTN: No Hypercholesterolemia: No Liver Disease: No Seizures: No Thyroid Disease: No - Surgical History Abdominal Surgery: No Appendectomy: No Cardiac Surgery: No Cholecystectomy: No Lung Surgery: No Neurologic Surgery: No Orthopedic Surgery: No - Reproductive History (#): 4 Para: 1 Cervical CA: No Dysfunctional Uterine Bleeding: No Ectopic : Yes Endometrial CA: No Polycystic Ovaries: No Therapeutic (s) & number: Yes (1) Tubal Ligation: No Spontaneous : 2 - Suicide/Smoking/Psychosocial Hx Smoking Status: Yes Smoking History: Never smoked Have you smoked in the past 12 months: No Number of Cigarettes Smoked Daily: 3 'Breaking Loose' booklet given: 07/31/13 Hx Alcohol Use: No Drug/Substance Use Hx: No Substance Use Type: None Hx Substance Use Treatment: No Review of Systems - Review of Systems Constitutional: No: Chills, Fever Cardiac (ROS): No: Chest Pain, Lightheadedness ABD/GI: No: Abdominal Distended, Abd. Pain w/ defecation, Nausea, Vomiting : No: Dysuria, Discharge, Pain, Urgency Neurological: No: Headache, Dizziness *Physical Exam - Vital Signs Last Vital Signs Temp Pulse Resp BP Pulse Ox 98.2 F 85 18 120/77 98 10/30/18 12:26 10/30/18 12:26 10/30/18 12:26 10/30/18 12:26 10/30/18 12:26 - Physical Exam General Appearance: Yes: Nourished Gastrointestinal/Abdominal: positive: Normal Bowel Sounds Neurologic: positive: air brake adjuster II-XII NML intact, Fully Oriented, Alert, Normal Mood/ Affect, Normal Response, Motor Strength 08/28 Medical Decision Making - Medical Decision Making 38y/o F , LMP 08/30/17 seen on 10/27/18 for vaginal bleed, pt is , Beta the time was 25.5,no IUP on sono pt is here for rpt beta, bleeding resolved pt is only spotting today denies pelvic pain rpt beta and sono ordered Beta today 9.9 sono no IUP, + fibroids pt will f/u with CRM BUSINESS ANALYST tomorrow RH neg, pt reports she given Rhogam last visit *DC/Admit/Observation/Transfer Diagnosis at time of Disposition: Missed Fibroid (bleeding) (uterine) Qualifiers: Uterine leiomyoma location: unspecified location Qualified Code(s): D25.9 - Leiomyoma of uterus, unspecified - Discharge Dispostion Disposition: HOME Condition at time of disposition: Stable Decision to Admit order: No - Referrals Referrals: Gene Perez MD [Primary Care Provider] - - Patient Instructions Additional Instructions: Your blood work today was 9.4, previously it was 25. The hormone is trending down meaning the is not viable your sonogram does not show in the uterus or the tubes.you do have fibroids please follow up with your CRM BUSINESS ANALYST tomorrow as discussed Return to the ER if worsening symptoms occurs. - Post Discharge Activity
== END 2018-10-30 14:30 | disposition home or self-care (01) ==
LOC: JER 12:17 → JERFT 12:17
DX: N93.9 Abnormal uterine and vaginal bleeding, unspecified (principal); O02.1 Missed abortion; D25.9 Leiomyoma of uterus, unspecified; Z72.0 Tobacco use
CPT/HCPCS: 36415; 76817-TC; 84702; 86850; 86870; 86900; 86901; 86902; 99281-25

== ENCOUNTER 2019-02-07 04:59 | Day surgery (SDC) | payer OTHER ==
[2019-02-06 13:13] VITALS: BMI 30.2
[2019-02-07] MEDS ORDERED: ROPIVACAINE HCL 0.5% 30ML VIAL ONE (06:57)
[2019-02-07] MEDS ORDERED: VASOPRESSIN 20 UNITS/ML VIAL IV ONE (07:04)
[2019-02-07] MEDS ORDERED: MIDAZOLAM HCL 2 MG/2 ML SINGLE DOSE VIAL ONE ×3 (07:16→07:18)
[2019-02-07] MEDS ORDERED: fentaNYL CITRATE 250 MCG/5 ML VIAL ONE (07:17)
[2019-02-07] MEDS ORDERED: EPHEDRINE SULFATE/0.9% NACL/PF 50 MG/10 ML SYRINGE NR ONE (07:17)
[2019-02-07] MEDS ORDERED: DEXAMETHASONE SOD PHOSPHATE 4 MG/1 ML VIAL ONE (07:18)
[2019-02-07] MEDS ORDERED: ROCURONIUM BROMIDE 50 MG/5 ML SYRINGE ONE (07:18)
[2019-02-07] MEDS ORDERED: PROPOFOL 20 ML ONE ×3 (07:18)
[2019-02-07] MEDS ORDERED: LIDOCAINE HCL 2% JELLY (5 ML/TUBE) ONE (07:18)
[2019-02-07] MEDS ORDERED: ONDANSETRON 4 MG/2 ML VIAL ONE (07:18)
[2019-02-07] MEDS ORDERED: NEOSTIGMINE METHYLSULFATE 0.5 MG/1 ML - 10 ML MDV ONE (07:18)
[2019-02-07] MEDS ORDERED: GLYCOPYRROLATE 0.2 MG/1 ML VIAL ONE ×2 (07:18→07:19)
--- NOTE | 2019-02-07 07:35 | HP ---
Admitting History and Physical - Admission Chief Complaint: Fibroid uterus History of Present Illness: 38 yo Para 1 with leiomyoma of the uterus is pre op for abdominal myomectomy. History Source: Patient Limitations to Obtaining History: No Limitations - Past Medical History ...LMP: 01/25/19 ...: No ...Para: 1 - Past Surgical History Additional Past Surgical History: Laparoscopy for ectopic - Smoking History Smoking history: Former smoker Have you smoked in the past 12 months: No Aproximately how many cigarettes per day: 3 If you are a former smoker, when did you quit?: 5yrs - Alcohol/Substance Use Hx Alcohol Use: No - Social History Usual Living Arrangement: Yes: With Child Do you think of yourself as: Straight/Heterosexual History of Recent Travel: No Home Medications - Allergies Allergies/Adverse Reactions: Allergies Allergy/AdvReac Type Severity Reaction Status Date / Time No Known Drug Allergies Allergy Verified 02/06/19 13:15 - Home Medications Home Medications: Ambulatory Orders NK [No Known Home Medication] 10/27/18 Family Medical History Family History: Unremarkable Review of Systems - Review of Systems Constitutional: reports: No Symptoms Eyes: reports: No Symptoms HENT: reports: No Symptoms Neck: reports: No Symptoms Cardiovascular: reports: No Symptoms Respiratory: reports: No Symptoms Gastrointestinal: reports: No Symptoms Genitourinary: reports: No Symptoms Breasts: reports: No Symptoms Reported Musculoskeletal: reports: No Symptoms Integumentary: reports: No Symptoms Neurological: reports: No Symptoms Endocrine: reports: No Symptoms Hematology/Lymphatic: reports: No Symptoms Psychiatric: reports: No Symptoms Physical Examination Vital Signs: Vital Signs Temperature 98.0 F 02/07/19 06:32 Pulse Rate 81 02/07/19 06:32 Respiratory Rate 16 02/07/19 06:32 Blood Pressure 136/95 02/07/19 06:32 O2 Sat by Pulse Oximetry (%) 99 02/07/19 06:32 Constitutional: Yes: Well Nourished Eyes: Yes: Conjunctiva Clear HENT: Yes: Atraumatic Neck: Yes: Supple Cardiovascular: Yes: Regular Rate and Rhythm Respiratory: Yes: Regular Gastrointestinal: Yes: Normal Bowel Sounds Musculoskeletal: Yes: WNL Extremities: Yes: WNL Integumentary: Yes: WNL Neurological: Yes: Alert, Oriented ...Motor Strength: WNL Assessment/Plan Leiomyoma of the uterus Pre op for abdominal myomectomy Consent signed Anesthesia to see patient
[2019-02-07] MEDS ORDERED: ceFAZolin SODIUM 1 GM VIAL IVPB ONE ×2 (07:55→07:59)
[2019-02-07] MEDS ORDERED: LIDOCAINE HCL 2% 100 MG/5 ML DISP.SYRIN ONE (08:12)
[2019-02-07] MEDS ORDERED: METOPROLOL TARTRATE 5 MG/5 ML VIAL ONE (08:14)
[2019-02-07] MEDS ORDERED: HYDROmorphone HCl 2 MG/ML VIAL ONE (09:08)
[2019-02-07] MEDS ORDERED: ONDANSETRON 4 MG/2 ML VIAL IVPUSH PRN (09:38)
[2019-02-07] MEDS ORDERED: oxyCODONE HCL 5 MG TABLET PO PRN (09:38)
[2019-02-07] MEDS ORDERED: MORPHINE SULFATE 2 MG/ML VIAL IVPUSH PRN (09:41)
[2019-02-07] MEDS ORDERED: KETOROLAC TROMETHAMINE 15 MG/ML VIAL IVPUSH PRN (09:41)
[2019-02-07] MEDS ORDERED: LACTATED RINGERS SOLUTION 1,000 ML IV SCH (09:45)
[2019-02-07] MEDS ORDERED: ACETAMINOPHEN 500 MG TABLET (FP) PO SCH (09:45)
[2019-02-07] MEDS ORDERED: BENZOIN TINCTURE SWABSTICK TP ONE (09:52)
[2019-02-07] MEDS ORDERED: IBUPROFEN 800 MG/8 ML IJ IVPB PRN (10:10)
--- NOTE | 2019-02-07 10:14 | PN ---
Progress Note (short form) - Note Progress Note: I assisted Dr. Naranjo at open myomectomies and SCHUYLER for the entirety of the case.
[2019-02-07] MEDS ORDERED: KETOROLAC TROMETHAMINE 15 MG/ML VIAL ONE (10:15)
[2019-02-07] MEDS ORDERED: ACETAMINOPHEN INJECTION 100 ML IVPB ONE (10:15)
--- NOTE | 2019-02-07 10:16 | OP ---
Operative Note - Note: Operative Date: 02/07/19 Pre-Operative Diagnosis: Leiomyoma of the uterus Operation: Abdominal myomectomy Findings: Irregular shape and enlarged uterus consistent with multiple large myomas. Multiple pelvic adhesion Post-Operative Diagnosis: Same as Pre-op Surgeon: Miya Taylor Second Hand: Cole Valero Anesthesia: General Specimens Removed: Multiple myomas Estimated Blood Loss (mls): 200 Operative Report Dictated: Yes
[2019-02-07] MEDS ORDERED: ACETAMINOPHEN 1000 MG/100 ML VIAL (NON FORMULARY) IVPB ONE (10:26)
[2019-02-07] MEDS ORDERED: KETOROLAC TROMETHAMINE 15 MG/ML VIAL IVPUSH ONE (10:26)
[2019-02-07] MEDS ORDERED: DEXTROSE 5%-LACTATED RINGERS 1,000 ML IV SCH (10:30)
[2019-02-07] MEDS: ACETAMINOPHEN 1000 MG/100 ML VIAL (NON FORMULARY) IVPB SCH ×2 (15:44→20:03)
[2019-02-08] MEDS: ACETAMINOPHEN 1000 MG/100 ML VIAL (NON FORMULARY) IVPB SCH ×4 (02:17→21:55)
--- NOTE | 2019-02-08 08:40 | PN ---
Progress Note (short form) - Note Progress Note: Post op day#1.S/P Myomectomy under Ga with TAP block uneventful.Patient stable and has little pain for which she is on medication.No any anesthesia related problem.Patient Dc from the anesthesia care.
[2019-02-08] MEDS ORDERED: ACETAMINOPHEN INJECTION 100 ML IVPB ONE (10:40)
[2019-02-08] MEDS: oxyCODONE HCL 5 MG TABLET PO PRN ×3 (13:05→21:52)
[2019-02-08] MEDS ORDERED: ACETAMINOPHEN 325 MG TABLET (FP) PO PRN (15:05)
--- NOTE | 2019-02-08 15:05 | PN ---
Progress Note, Physician History of Present Illness: 38 yo Para 1 status post myomectomy, seen and evaluated. She's lying in bed; c/o incision pain. - Current Medication List Current Medications: Active Medications Acetaminophen (Ofirmev Injection -) 1,000 mg IVPB Q6H-IV MARY Last Admin: 02/08/19 10:44 Dose: 1,000 mg Fentanyl (Sublimaze Injection -) 50 mcg IVPUSH [id number] PRN PRN Reason: PAIN-PACU ORDER X 4 DOSES ONLY Lactated Ringer's (Lactated Ringers Solution) 1,000 mls @ 125 mls/hr IV ASDIR MARY Dextrose/Lactated Ringer's (D5-Lr -) 1,000 mls @ 125 mls/hr IV ASDIR MARY Ibuprofen (Caldolor Injection -) 800 mg IVPB Q8H PRN PRN Reason: FEVER Last Admin: 02/08/19 05:55 Dose: 800 mg Ibuprofen (Motrin -) 600 mg PO Q4H PRN PRN Reason: PAIN LEVEL 4-5 Ketorolac Tromethamine (Toradol Injection -) 15 mg IVPUSH Q6H PRN PRN Reason: PAIN LEVEL 1 - 3 Stop: 02/12/19 09:40 Morphine Sulfate (Morphine Sulfate) 2 mg IVPUSH Q3H PRN PRN Reason: PAIN LEVEL 7 - 10 Ondansetron HCl (Zofran Injection) 4 mg IVPUSH Q6H PRN PRN Reason: NAUSEA AND/OR VOMITING Oxycodone HCl (Roxicodone -) 5 mg PO Q3H PRN PRN Reason: PAIN LEVEL 1 - 3 Last Admin: 02/08/19 13:05 Dose: 5 mg Oxycodone HCl (Roxicodone -) 10 mg PO Q3H PRN PRN Reason: PAIN LEVEL 4 - 6 - Objective Vital Signs: Vital Signs Temperature 98.7 F 02/08/19 09:54 Pulse Rate 88 02/08/19 09:54 Respiratory Rate 20 02/08/19 09:54 Blood Pressure 109/71 02/08/19 09:54 O2 Sat by Pulse Oximetry (%) 98 02/08/19 06:20 Constitutional: Yes: No Distress, Calm Eyes: Yes: Conjunctiva Clear HENT: Yes: Atraumatic Neck: Yes: Supple Cardiovascular: Yes: Regular Rate and Rhythm Respiratory: Yes: Regular Gastrointestinal: Yes: Soft Genitourinary: No: Vaginal Bleeding Extremities: Yes: WNL Neurological: Yes: Alert, Oriented ...Motor Strength: WNL Psychiatric: Yes: Alert, Oriented Problem List - Problems (1) Status post myomectomy Code(s): Z98.890 - OTHER SPECIFIED POSTPROCEDURAL STATES Assessment/Plan Status post myomectomy Ambulation Analgesia as needed Continue post op care
[2019-02-08] MEDS: IBUPROFEN 600 MG TABLET (FP) PO PRN ×2 (15:09→21:52)
[2019-02-08 16:09] LABS: BASO % 0.4 % (0-2.0); EOS % 0.2 % (0-4.5); HEMATOCRIT 27.4 % (32.4-45.2); HEMOGLOBIN 9.1 GM/dL (10.7-15.3); LYMPH % 17.4 % (8-40); MCHC 33.3 g/dl (32.0-36.0); MEAN CELL VOLUME 96.1 fl (80-96); MEAN PLT VOLUME 9.7 fl (7.5-11.1); MONO % 5.2 % (3.8-10.2); NEUT % 76.8 % (42.8-82.8); PLATELET COUNT 135 K/MM3 (134-434); RBC 2.85 M/mm3 (3.60-5.2); RDW 13.8 % (11.6-15.6); WHITE BLOOD COUNT 7.3 K/mm3 (4.0-10.0)
[2019-02-08 16:37] LABS: BLOOD UREA NITROGEN 6.2 mg/dL (7-18); CALCIUM 8.1 mg/dL (8.5-10.1); CREATININE 0.7 mg/dL (0.55-1.3); POTASSIUM 3.4 mmol/L (3.5-5.1)
--- NOTE | 2019-02-08 17:28 | PATH ---
Surgical Pathology Report Patient Name: LEILANI GRAY [facility]. Rec. #: [id number] /Age/Gender: 1980 (Age: 38) / F Account: [id number] Location: [facility] OBS/SURVEYOR Taken: 02/07/2019 Received: 02/07/2019 Reported: 02/08/2019 Physicians: Miya Taylor M.D. Specimen(s) Received A: UTERINE FIBROIDS B: ADHESIONS Clinical History Leiomyoma of uterus Final Diagnosis A. UTERINE FIBROIDS, ABDOMINAL MYOMECTOMY: 230 G, LEIOMYOMA(TA) WITH FOCAL DEGENERATIVE CHANGES AND DYSTROPHIC CALCIFICATION. B. ADHESIONS, EXCISION: FIBROCONNECTIVE AND FIBROADIPOSE TISSUE COMPATIBLE WITH ADHESIONS. Electronically Signed Latesha Deng M.D. Gross Description A. Received in formalin labeled "uterine fibroids" multiple rubbery estrella nodules ranging in size from 1-7 cm, weighing 230 g and measuring 12 x 12 x 6 cm in aggregate. The cut surface of the nodules is estrella, rubbery and displays a whorled architecture. No areas of hemorrhage or necrosis are identified. Grounds Restoration Specialist sections are submitted in 4 cassettes as follows:1-2 largest fibroid, 3-4- district representative section smaller fibroids. B. Received in formalin labeled "adhesions" irregular piece of white-estrella, fibromembranous soft tissue measuring 2 x 1 x 0.3 cm. The entire specimen is submitted in one cassette. MLSZ/02/07/2019 sanml/02/07/2019
[2019-02-08] MEDS: DOXYCYCLINE HYCLATE 100 MG CAPSULE PO SCH (17:45)
--- NOTE | 2019-02-08 21:34 | DS ---
Physical Examination Vital Signs: Vital Signs Temperature 98.3 F 02/08/19 18:00 Pulse Rate 96 H 02/08/19 18:00 Respiratory Rate 20 02/08/19 18:00 Blood Pressure 117/74 02/08/19 18:00 O2 Sat by Pulse Oximetry (%) 98 02/08/19 06:20 Constitutional: No: No Distress HENT: Yes: Atraumatic Neck: Yes: Trachea Midline Cardiovascular: Yes: Regular Rate and Rhythm Respiratory: Yes: WNL Gastrointestinal: Yes: Normal Bowel Sounds Musculoskeletal: No: Muscle Weakness Extremities: No: Calf Tenderness Wound/Incision: Yes: Dressing Dry and Intact Neurological: Yes: Alert, Oriented ...Motor Strength: WNL Psychiatric: Yes: Alert, Oriented Labs: CBC, BMP 02/08/19 15:35 02/08/19 15:35 Discharge Summary Problems reviewed: Yes Reason For Visit: LEIOMYOMA OF THE UTERUS Current Active Problems Status post myomectomy (Acute) Procedures: Principal: Abdominal myomectomy Other Procedures: Lysis of adhesions Hospital Course: Routine post op care Antibiotic prescribed No blood transfusion required Health Concerns: Anemia Plan of Treatment: Doxycycline and Flagyl prescribed Goals: Resume regular activities in 2 weeks Condition: Good - Instructions Diet, Activity, Other Instructions: Regular diet No driving, no lifting x 4 weeks. F/U with MD in 1 week Referrals: Miya Taylor MD [Staff Physician] - Disposition: HOME - Home Medications Comprehensive Discharge Medication List: Ambulatory Orders NK [No Known Home Medication] 10/27/18
[2019-02-08] MEDS: SIMETHICONE 80 MG TAB.CHEW (FP) PO PRN (21:51)
[2019-02-08] MEDS: metroNIDAZOLE 250 MG TABLET PO SCH (21:52)
[2019-02-09] MEDS: IBUPROFEN 600 MG TABLET (FP) PO PRN ×2 (06:42→10:04)
[2019-02-09] MEDS: oxyCODONE HCL 5 MG TABLET PO PRN ×2 (06:42→10:03)
[2019-02-09] MEDS: SIMETHICONE 80 MG TAB.CHEW (FP) PO PRN (06:42)
[2019-02-09] MEDS: DOXYCYCLINE HYCLATE 100 MG CAPSULE PO SCH (09:06)
[2019-02-09] MEDS: metroNIDAZOLE 250 MG TABLET PO SCH (09:06)
[2019-02-09 09:47] VITALS: BP 124/79; PULSE 87; TEMP 98.2
--- NOTE | 2019-02-14 12:21 | OP ---
DATE OF OPERATION: 02/07/2019 PREOPERATIVE DIAGNOSIS: Leiomyoma of the uterus. POSTOPERATIVE DIAGNOSIS: Leiomyoma of the uterus and pelvic adhesions. PROCEDURE: Abdominal myomectomy and lysis of adhesions. SURGEON: Miya Taylor MD MIS SPECIALIST: Cole Valero MD ANESTHESIA: General. COMPLICATIONS: None. ESTIMATED BLOOD LOSS: 200 mL. DESCRIPTION OF PROCEDURE: Patient was taken to the operating room where general anesthesia was administered. Patient was then prepped and draped in proper sterile fashion. A Pfannenstiel skin incision was made and carried down to the underlying layer of fascia. The fascia was incised bilaterally with the curved Hidalgo scissors, and the muscles of the anterior abdominal wall were in the midline by sharp and blunt dissection. The peritoneum was grasped between 2 pickups, elevated, and entered sharply with the Metzenbaum scissors. The pelvis was examined, and an enlarged, irregular shaped uterus was found. Then the bowel was packed with small laparotomy sponges, and the uterus was exteriorized. Using a sweetheart, 1 of the fundal myomas was grabbed and used it as traction. Lidocaine was injected over the fundal part of the uterus. Using a sweetheart, the largest myoma on the left side of the fundus was grasped, and an incision was made using the cautery. Using the Metzenbaum, the Bovie cautery, the myoma was removed. The same procedure was done for each of the myomas. There were several myomas noted. Each myoma was then removed separately. The space was closed using 2-0 Vicryl, and the incisions were closed using 2-0 Biosyn with a baseball stitch. There were several adhesions noted, and adhesiolysis was performed to allow proper visualization of the uterus and fibroid. Then most of the fibroids were removed. All the incisions were closed , and the uterus was completely irrigated. Hemostasis was obtained. The uterus was returned to the abdomen. Interceed was placed over the incisions. The peritoneum was closed using 2-0 Biosyn. The fascia was reapproximated using 0 Vicryl in a running fashion, and the skin was closed in a subcuticular fashion using 3-0 Vicryl. Patient tolerated procedure well. Patient was taken to PACU in stable condition. PATHOLOGY: Multiple myomas. MIYA TAYLOR M.D. DARIANA/[id number] STEFANIE
== END 2019-02-09 11:25 | disposition home or self-care (01) ==
LOC: JASUSAT 04:59 → EDSTATUS 07:30 → J3W 12:32 → JASUSAT 02-09 11:25
PROVIDERS: ATTEND Obstetrics & Gynecology
PROC: 0DNW0ZZ Release Peritoneum, Open Approach (ICD-10-PCS; 2019-02-07)
PROC: 0UB90ZZ Excision of Uterus, Open Approach (ICD-10-PCS; principal; 2019-02-07 07:30)
DX: D25.9 Leiomyoma of uterus, unspecified (principal); N73.6 Female pelvic peritoneal adhesions (postinfective)
CPT/HCPCS: 36415; 80048; 85025; 88305-TC; 94760; J0131

== ENCOUNTER 2019-05-17 01:12 | Emergency (ER) | payer OTHER ==
--- NOTE | 2019-05-17 01:15 | PDOC ---
History of Present Illness - General Stated Complaint: WELTS SINCE THIS AM Time Seen by Provider: 05/17/19 01:15 - History of Present Illness Initial Comments: This 38-year-old woman with no significant past medical history presents with 1 day history of pruritic, erythematous rash of bilateral elbows, bilateral breasts and right buttock. Patient relates being awakened last night secondary to the itchiness of the rash. Throughout the day today she has been taking Benadryl and using OTC hydrocortisone cream with minimal relief. No history of lip/tongue swelling or difficulty swallowing/breathing. No wheezing or other noisy breathing. No abdominal discomfort or nausea No recent fever/chills or other acute infectious illness. She cannot recall any exposure to new foods/medications/supplements or topical preparations. No history of this type of rash; no history of autoimmune disease in her self or her family. No known allergies On no daily medications Non-smoker; no daily alcohol or other drug use Past History - Past Medical History Allergies/Adverse Reactions: Allergies Allergy/AdvReac Type Severity Reaction Status Date / Time No Known Drug Allergies Allergy Verified 05/17/19 01:14 Home Medications: Ambulatory Orders Triamcinolone 0.5% Cream [Aristocort 0.5% Cream -] 1 applic TP TID #1 tube 05/17 predniSONE [Deltasone -] 40 mg PO DAILY #10 tablet 05/17/19 Anemia: No Asthma: No Cancer: No Cardiac Disorders: No CVA: No COPD: No CHF: No DVT: No Dementia: No Diabetes: No GI Disorders: No Disorders: No HTN: No Hypercholesterolemia: No Liver Disease: No Seizures: No Thyroid Disease: No - Surgical History Abdominal Surgery: No Appendectomy: No Cardiac Surgery: No Cholecystectomy: No Lung Surgery: No Neurologic Surgery: No Orthopedic Surgery: No - Reproductive History (#): 4 Para: 1 Cervical CA: No Dysfunctional Uterine Bleeding: No Ectopic : Yes Endometrial CA: No Polycystic Ovaries: No Therapeutic (s) & number: Yes (1) Tubal Ligation: No Spontaneous : 2 - Psycho Social/Smoking Cessation Hx Smoking Status: Yes Smoking History: Former smoker Have you smoked in the past 12 months: No Number of Cigarettes Smoked Daily: 3 If you are a former smoker, when did you quit?: 5yrs 'Breaking Loose' booklet given: 07/31/13 Hx Alcohol Use: No Drug/Substance Use Hx: No Substance Use Type: None Hx Substance Use Treatment: No Review of Systems - Review of Systems Able to Perform ROS?: Yes Comments:: 12 point review of systems is negative except for what is noted in the history of present illness *Physical Exam - Physical Exam GENERAL: Adult female, alert and oriented x3, scratching rash frequently but in no acute distress HEAD: Normal with no signs of trauma. EYES: PERRLA, EOMI, sclera anicteric, conjunctiva clear. ENT: Ears normal, nares patent, oropharynx clear without exudates. Moist mucous membranes. No lip/tongue/uvular edema NECK: Normal range of motion, supple without lymphadenopathy, JVD, or masses. No stridor LUNGS: Breath sounds equal, clear to auscultation bilaterally. No wheezes, and no crackles. NEUROLOGICAL: Cranial nerves II through XII grossly intact. Normal speech. No focal neurological deficits. SKIN: Warm, Dry, normal turgor; 3 cm x 4 cm edematous, erythematous wheals of extensor surface of bilateral elbows; faint erythema / edema around areola of bilateral nipples; 2 separate 3 cm x 3 cm edematous, erythematous wheals of right buttock. No other rash evident; no vesicles or scaling noted. Area of left extensor surface of elbow slightly warm to touch but no fluctuance or discharge noted Medical Decision Making - Medical Decision Making This 38-year-old woman, with no previous history of allergic response or urticaria presents with 1 day history of persistent localized erythematous, edematous, pruritic rash of elbows/breasts/buttock. No manifestations of upper airway edema/angioedema present by history or on exam. No clear exposure to new allergen; no recent fever or infectious process. Possibility of urticaria in response to allergy/infection/stress discussed with the patient. Also, possibility of vasculitis also discussed with the patient. In light of patient's persistent symptoms (especially pruritus) despite use of antihistamines today, will start short course of prednisone. First dose of 40 mg prednisone given here in the emergency room with prescription for daily 40 mg for 5 more days sent to her pharmacy (patient cautioned to take prednisone with food). Patient can and should continue to use antihistamines for breakthrough itching. It was emphasized to the patient that she must follow-up with her general medical doctor within the next 48 hours for further evaluation. If she has any upper airway swelling or difficulty swallowing/ breathing, she should return to the emergency room immediately. Also, if she has any increased swelling, increased warmth or pain in any of the lesions, she should return to the ER Discharge - Discharge Information Problems reviewed: Yes Clinical Impression/Diagnosis: Urticaria Condition: Stable Disposition: HOME - Additional Discharge Information Prescriptions: predniSONE [Deltasone -] 40 mg PO DAILY #10 tablet Triamcinolone 0.5% Cream [Aristocort 0.5% Cream -] 1 applic TP TID #1 tube - Follow up/Referral - Patient Discharge Instructions Patient Printed Discharge Instructions: Nidia Additional Instructions: Prednisone 40 mg daily for the next 5 days (next dose tomorrow) Take prednisone with food Follow-up with your general doctor within the next 48 hours You can take Benadryl or use triamcinolone cream if you have breakthrough itching while taking prednisone Return to ER immediately if you have lip/tongue swelling, difficulty swallowing or difficulty breathing Return to ER if you have generalized severe rash, persistent pain or develop fever - Post Discharge Activity
[2019-05-17 01:18] VITALS: BP 135/92; PULSE 62; TEMP 98.6; BMI 28.3
[2019-05-17] MEDS ORDERED: predniSONE 20 MG TABLET (UD) PO ONE (01:29)
[2019-05-17] MEDS ORDERED: predniSONE 20 MG TABLET (UD) ONE (01:30)
== END 2019-05-17 01:39 | disposition home or self-care (01) ==
LOC: FER 01:12
DX: L50.9 Urticaria, unspecified (principal); Z87.891 Personal history of nicotine dependence
CPT/HCPCS: 99281-25

== ENCOUNTER 2019-12-11 20:35 | Inpatient (IN) | payer OTHER ==
[2019-12-11 20:47] VITALS: BMI 29.2
--- NOTE | 2019-12-11 20:53 | PDOC ---
Rapid Medical Evaluation Chief Complaint: Pain, Acute Time Seen by Provider: 12/11/19 20:42 Medical Evaluation: Allergies Allergy/AdvReac Type Severity Reaction Status Date / Time No Known Drug Allergies Allergy Verified 05/17/19 01:14 Vital Signs Temp Pulse Resp BP Pulse Ox 100.5 F H 110 H 20 118/87 99 12/11/19 20:45 12/11/19 20:45 12/11/19 20:45 12/11/19 20:45 12/11/19 20:45 12/11/19 20:52 I have performed a brief in-person evaluation of this patient. The patient presents with a chief complaint of: abd pain w/ n/v and fever Pertinent physical exam findings:T 100.5 w/ HR 110 I have ordered the following:labs/ua The patient will proceed to the ED for further evaluation. Discharge Disposition - Diagnosis Abdominal pain Qualifiers: Abdominal location: unspecified location Qualified Code(s): R10.9 - Unspecified abdominal pain Fever Qualifiers: Fever type: unspecified Qualified Code(s): R50.9 - Fever, unspecified - Referrals - Patient Instructions - Post Discharge Activity
[2019-12-11] MEDS ORDERED: SODIUM CHLORIDE 1,000 ML IV STA (21:09)
[2019-12-11] MEDS ORDERED: ACETAMINOPHEN 1000 MG/100 ML VIAL (NON FORMULARY) IVPB ONE (21:09)
--- NOTE | 2019-12-11 21:09 | PDOC ---
History of Present Illness - General Chief Complaint: Pain, Acute Stated Complaint: ABD PAIN/VOMITING/FEVER Time Seen by Provider: 12/11/19 20:42 History Source: Patient - History of Present Illness Initial Comments: 12/11/19 22:16 39-year-old female complaining of generalized abdominal pain left side worse than right, nausea, vomiting and pelvic pain worsening over the last 3 days. one episode of diarrhea. denies cough, chest pain, SOB, urinary symptoms. denies STI exposure. denies vaginal discharge or pain Past History - Medical History Allergies/Adverse Reactions: Allergies Allergy/AdvReac Type Severity Reaction Status Date / Time No Known Drug Allergies Allergy Verified 05/17/19 01:14 Home Medications: Ambulatory Orders Triamcinolone 0.5% Cream [Aristocort 0.5% Cream -] 1 applic TP TID #1 tube 05/17/19 predniSONE [Deltasone -] 40 mg PO DAILY #10 tablet 05/17/19 Anemia: No Asthma: No Cancer: No Cardiac Disorders: No CVA: No COPD: No CHF: No DVT: No Dementia: No Diabetes: No GI Disorders: No Disorders: No HTN: No Hypercholesterolemia: No Liver Disease: No Seizures: No Thyroid Disease: No - Surgical History Abdominal Surgery: No Appendectomy: No Cardiac Surgery: No Cholecystectomy: No Lung Surgery: No Neurologic Surgery: No Orthopedic Surgery: No - Reproductive History Is Patient Now?: No (#): 4 Para: 1 Cervical CA: No Dysfunctional Uterine Bleeding: No Ectopic : Yes Endometrial CA: No Polycystic Ovaries: No Therapeutic (s) & number: Yes (1) Tubal Ligation: No Spontaneous : 2 - Psycho-Social/Smoking History Smoking Status: Yes Smoking History: Never smoked Have you smoked in the past 12 months: No Number of Cigarettes Smoked Daily: 3 If you are a former smoker, when did you quit?: 5yrs 'Breaking Loose' booklet given: 07/31/13 - Substance Abuse Hx (Audit-C & DAST Scrn) How often the patient has a drink containing alcohol: Never Score: In Men: 4 or > Positive; In Women: 3 or > Positive: 0 Screen Result (Pos requires Nsg. Audit-10AR): Negative In the last yr the pt used illegal drug/Rx for NonMed reason: No Score: Yes response is considered Positive: 0 Screen Result (Positive result requires Nsg. DAST-10): Negative *Physical Exam - Vital Signs Last Vital Signs Temp Pulse Resp BP Pulse Ox 100.5 F H 110 H 20 118/87 99 12/11/19 20:45 12/11/19 20:45 12/11/19 20:45 12/11/19 20:45 12/11/19 20:45 - Physical Exam General Appearance: Yes: Appropriately Dressed Respiratory/Chest: positive: Lungs Clear, Normal Breath Sounds Cardiovascular: positive: Regular Rate Female Pelvic Exam: positive: normal external exam, cervical os closed, adnexal tenderness (b/l right worse than left), other (copious vaginal discharge, no CMT) Gastrointestinal/Abdominal: positive: Normal Bowel Sounds, Tender (generalized tenderness), Soft Musculoskeletal: negative: CVA Tenderness Extremity: positive: Normal Capillary Refill, Normal Inspection, Normal Range of Motion Integumentary: positive: Normal Color, Dry, Warm Neurologic: positive: Fully Oriented, Alert, Normal Mood/Affect ED Treatment Course - LABORATORY CBC & Chemistry Diagram: 12/12/19 02:57 12/11/19 21:35 Medical Decision Making - Medical Decision Making 12/12/19 02:50 A: abdominal pain; P: cbc: wbc: 10.6 CMp lactic WNL TVUS: CTAP: There is multifocal mesenteric edema with probable small bowel inflammation possibly infectious inflammatory or ischemic enteritis. There is diffuse liquid stool but no colonic wall thickening no bowel obstruction abscess or free air no adnexal masses. 12/12/19 03:00 IV antibiotics. Will repeat CBC and lactic. Patient to be admitted. Patient likely needs surgical inpatient consult. 12/12/19 04:0 patient signed out to Dr. machado Discharge - Discharge Information Problems reviewed: Yes Clinical Impression/Diagnosis: Pelvic pain Abdominal pain Qualifiers: Abdominal location: unspecified location Qualified Code(s): R10.9 - Unspecified abdominal pain Fever Qualifiers: Fever type: unspecified Qualified Code(s): R50.9 - Fever, unspecified - Follow up/Referral - Patient Discharge Instructions - Post Discharge Activity
[2019-12-11] MEDS ORDERED: ONDANSETRON 4 MG/2 ML VIAL IVPUSH ONE (21:10)
[2019-12-11] MEDS ORDERED: ACETAMINOPHEN INJECTION 100 ML IVPB ONE (21:19)
--- NOTE | 2019-12-11 21:38 | PDOC ---
*Physical Exam - Vital Signs Last Vital Signs Temp Pulse Resp BP Pulse Ox 100.5 F H 110 H 20 118/87 99 12/11/19 20:45 12/11/19 20:45 12/11/19 20:45 12/11/19 20:45 12/11/19 20:45 ED Treatment Course - LABORATORY CBC & Chemistry Diagram: 12/11/19 21:35 12/11/19 21:35 Medical Decision Making - Medical Decision Making 12/11/19 21:38 Patient seen by the advanced practice provider under my supervision. Ancillary testing reviewed as necessary. I agree with plan as outlined by the advanced practice provider. Discharge - Discharge Information Problems reviewed: Yes Clinical Impression/Diagnosis: Pelvic pain Abdominal pain Qualifiers: Abdominal location: unspecified location Qualified Code(s): R10.9 - Unspecified abdominal pain Fever Qualifiers: Fever type: unspecified Qualified Code(s): R50.9 - Fever, unspecified - Follow up/Referral - Patient Discharge Instructions - Post Discharge Activity
[2019-12-11 21:49] LABS: BASO % 0.3 % (0-2.0); EOS % 0.4 % (0-4.5); HEMATOCRIT 35.7 % (32.4-45.2); HEMOGLOBIN 12.2 GM/dL (10.7-15.3); LYMPH % 6.7 % (8-40); MCH 32.8 pg (25.7-33.7); MCHC 34.2 g/dl (32.0-36.0); MEAN CELL VOLUME 95.9 fl (80-96); MEAN PLT VOLUME 10.6 fl (7.5-11.1); MONO % 2.2 % (3.8-10.2); NEUT % 90.4 % (42.8-82.8); PLATELET COUNT 173 K/MM3 (134-434); RBC 3.73 M/mm3 (3.60-5.2); RDW 13.7 % (11.6-15.6); WHITE BLOOD COUNT 10.9 K/mm3 (4.0-10.0)
[2019-12-11 22:18] LABS: ALBUMIN 3.6 g/dl (3.4-5.0); BILIRUBIN,TOTAL 0.8 mg/dL (0.2-1); BLOOD UREA NITROGEN 8.3 mg/dL (7-18); CALCIUM 8.9 mg/dL (8.5-10.1); CREATININE 0.9 mg/dL (0.55-1.3); POTASSIUM 4.1 mmol/L (3.5-5.1); TOT PROT 7.4 g/dl (6.4-8.2)
[2019-12-11 23:32] LABS: HCG,QUALITATIVE URINE Negative
[2019-12-11 23:58] LABS: URINE APPEARANCE CLEAR; URINE BILIRUBIN NEGATIVE (NEGATIVE); URINE COLOR YELLOW; URINE GLUCOSE (UA) NEGATIVE (NEGATIVE)
[2019-12-11 23:59] LABS: URINE KETONE 1+ (NEGATIVE); URINE LEUK ESTERASE NEGATIVE (NEGATIVE); URINE NITRITE NEGATIVE (NEGATIVE); URINE PROTEIN 2+ (NEGATIVE)
[2019-12-12] LABS: EPI CELLS 59.6 /uL (0-25.1); HYALINE CASTS 1.92 /uL (0-3.1); URINE BACTERIA 739.8 /uL (0-1359); URINE RBC 59 /uL (0-23.9); URINE WBC 33 /uL (0-25.8)
[2019-12-12] MEDS ORDERED: morphine CARPU-JECT 2 MG/1 ML DISP.SYRIN IVPUSH ONE (00:27)
[2019-12-12] MEDS ORDERED: MORPHINE SULFATE 2 MG/ML VIAL ONE (00:38)
[2019-12-12] MEDS ORDERED: PIPERACILLIN/TAZOB 3.375 GM 3.375 GM in DEXTROSE 5%-WATER - 50 ML IVPB ONE (02:13)
[2019-12-12] MEDS ORDERED: VANCOMYCIN 1 GM in D5W (PRE-DOCKED) 1,000 MG/250 ML IVPB ONE (02:13)
[2019-12-12] MEDS ORDERED: HYDROmorphone HCL CARPU-JECT 2 MG/1 ML DISP.SYRIN IVPUSH ONE (02:15)
[2019-12-12] MEDS ORDERED: HYDROmorphone HCl 2 MG/ML VIAL ONE ×2 (02:25→18:27)
[2019-12-12] MEDS ORDERED: PIPERACILLIN/TAZOB 3.375 GM 3.375 GM/50 ML BAG IVPB ONE (02:25)
[2019-12-12] MEDS ORDERED: VANCOMYCIN 1 GRAM (PRE-DOCKED) 1,000 MG/250 ML BAG IVPB ONE (02:25)
[2019-12-12] MEDS ORDERED: SODIUM CHLORIDE 1,000 ML IV SCH (03:00)
[2019-12-12 03:11] LABS: BASO % 0.5 % (0-2.0); EOS % 0.6 % (0-4.5); HEMATOCRIT 32.5 % (32.4-45.2); MCH 32.6 pg (25.7-33.7); MCHC 33.7 g/dl (32.0-36.0); MEAN CELL VOLUME 96.6 fl (80-96); MEAN PLT VOLUME 10.2 fl (7.5-11.1); MONO % 3.1 % (3.8-10.2); NEUT % 85.8 % (42.8-82.8); PLATELET COUNT 132 K/MM3 (134-434); RBC 3.36 M/mm3 (3.60-5.2); WHITE BLOOD COUNT 9.5 K/mm3 (4.0-10.0)
--- NOTE | 2019-12-12 03:14 | PN ---
Teaching Attending Note Name of Resident: Elba Fairchild ATTENDING PHYSICIAN STATEMENT I saw and evaluated the patient. I reviewed the resident's note and discussed the case with the resident. I agree with the resident's findings and plan as documented. SUBJECTIVE: Patient is a 39 year old woman with a PMH of Ovarian cysts, Uterine fibroids, Ectopic (x2) and Menorrhagia who presents to the ER with complaint of generalized abdominal pain - worse on the left side, nausea, vomiting and pelvic pain worsening over the last 3 days. Symptoms started 2 days after the onset of her period. Had one episode of diarrhea. Denies cough, chest pain, SOB, urinary symptoms, STI exposure abnormal vaginal discharge or pain. Patient denies fever, chills, nausea, dysuria, frequency, urgency, melena, hematochezia or hematuria. LMP five days ago. Ex smoker. Denies alcohol, tobacco or illicit drug use. No sick contacts or recent travels. Family history is unremarkable. OBJECTIVE: Alert Vital Signs Period Temp Pulse Resp BP Sys/Carpio Pulse Ox Last 24 Hr 98.5 F-100.5 F 93-110 19-20 118-123/74-87 99-99 HEENT: No Jaundice, eye redness or discharge, PERRLA, EOMI. Normocephalic, atraumatic. External ears are normal and hearing is grossly intact. No nasal discharge. Neck: Supple, nontender. No palpable adenopathy or thyromegaly. No JVD Chest: Good effort. Clear to auscultation and percussion. Heart: Regular. No S3, rub or murmur Abdomen: Not distended, soft, diffuse lower abdominal and periumblical tenderness and no HSM. No rebound or guarding. Normal bowel sounds. Ext: Peripheral pulses intact. No leg edema. Skin: Warm and dry. No petechiae, rash or ecchymosis. Neuro: Alert. Oriented x3. CN 2-12 grossly intact. Sensation grossly intact in all four extremities and DTR are symmetric. Psych: Appropriate mood and affect. Good insight. Home Medications Medication Instructions Recorded Triamcinolone 0.5% Cream 1 applic TP TID #1 tube 05/17/19 [Aristocort 0.5% Cream -] predniSONE [Deltasone -] 40 mg PO DAILY #10 tablet 05/17/19 Abnormal Lab Results 12/11/19 12/11/19 12/11/19 21:35 21:35 23:19 WBC 10.9 H Absolute Neuts (auto) 9.9 H Neutrophils % 90.4 H Lymphocytes % 6.7 L D Monocytes % 2.2 L Lipase 41 L Urine Protein 2+ H Urine Ketones 1+ H Urine Blood 2+ H Current Medications Generic Name Dose Route Start Last Admin Trade Name Luz PRN Reason Stop Dose Admin Enoxaparin Sodium 40 mg 12/12/19 10:00 Lovenox - SQ DAILY MARY Sodium Chloride 1,000 mls @ 125 mls/hr 12/12/19 03:00 12/12/19 03:05 Normal Saline - IV 125 mls/hr ASDIR MARY Administration Ceftriaxone Sodium 1 gm/ 50 mls @ 100 mls/hr 12/12/19 10:00 Dextrose IVPB DAILY MARY Metronidazole 500 mg in 100 mls @ 100 mls/hr 12/12/19 10:00 Flagyl 500mg Premixed Ivpb - IVPB Q8H-IV MARY ASSESSMENT AND PLAN: 1. Abdominal pain/?Enteritis - Report of CT scan of abdomen/pelvis with IV contrast - "There is multifocal mesenteric edema with probable small bowel inflammation possibly infectious inflammatory or ischemic enteritis. There is diffuse liquid stool but no colonic wall thickening no bowel obstruction abscess or free air no adnexal masses." CT abdomen/pelvis and transvaginal sonogram show ovarian cysts and uterine fibroid, but no evidence of ovarian torsion or endometritis. Sepsis workup done and STI panel sent. ER staff prescribed Tylenol, Dilaudid, Zofran, IV Vancomycin, IV Zosyn, IV Morphine and IV NS for the patient. Will get CXR, send any diarrheal stool for studies, continue treatment for enteritis with IV Ceftriaxone and IV Flagyl. Consult GI and ID. Consult [employer] for the remote possibility of endometritis. EKG shows NSR at 95/minute and QTc [address]-T wave changes. Viral testing for COVID-19 ordered and patient placed on airborne, droplet and contact isolation. 2. DVT prophylaxis - Lovenox 40 mg SQ q 24 hours. 3. Advance directives - Full code
--- NOTE | 2019-12-12 03:33 | HP ---
CHIEF COMPLAINT: Lower abdominal pain of 3days duration PCP: Chris HISTORY OF PRESENT ILLNESS: 39-year-old female complaining of generalized lower abdominal pain left side worse than right. Sharp, worse with movement and mildly relleived when sitted. When lying down, she experiences unbearable pressure that has made been making her sleep sitting up in the past 2 days. Pain radiates to the periumblical region with associated loss of appetite, nausea, vomiting and diarrhea, all of x1 episode, no blood content. Severity on admission was 10/10 but has reduced to 5/10 after administration of morphine and hydromorphine Denies hx of atrial fibrillation, clotting disorder, personal or FHx of ovarian disorder, jaundice, cough, chest pain, SOB, malodourous vaginal discharge and hx STI exposure. However, patient has hx of ectopic and tubal blockade ER course was notable for: (1)Hydromorphone, morphine(did not help), tylenol (2)Vanco, Zosyn (3)N/S Recent Travel:None PAST SURGICAL HISTORY: Uterine myomectomy 11months ago [employer]: LMP 3days ago with reduced flow than usual. Hx ruptured ectopic 3 yrs ago 2/2 obstructed ovarian tube. G4 Para 1: Aborta x 1, Miscarriage x 1, only child now 19yrs of age. She is sexually active with one partner and occasional barrier contraceptive use. Still trying to have a second child with no success. 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 Smoking:None Alcohol:none Drugs: none Allergies: No known allergy to food, drug and allergy HOME MEDICATIONS: Home Medications Medication Instructions Recorded Triamcinolone 0.5% Cream 1 applic TP TID #1 tube 05/17/19 [Aristocort 0.5% Cream -] predniSONE [Deltasone -] 40 mg PO DAILY #10 tablet 05/17/19 REVIEW OF SYSTEMS Negative except as above Vital Signs - 24 hr 12/11/19 12/12/19 20:45 02:45 Temperature 100.5 F H 98.5 F Pulse Rate 110 H Pulse Rate [ 93 H Left Apical] Respiratory 20 19 Rate Blood Pressure 118/87 Blood Pressure 123/74 [Right Arm] O2 Sat by Pulse 99 99 Oximetry (%) PHYSICAL EXAMINATION GENERAL: Awake, alert, and fully oriented, in acute painful distress. HEAD: Normal with no signs of trauma. Sclera anicteric, conjunctiva clear. LUNGS: Vesicular breath sounds equal b/l, clear to auscultation bilaterally. No wheezes, and no crackles. No obvious signs of respiratory. HEART: Regular rate and rhythm, normal S1 and S2 without murmur, rub or gallop. ABDOMEN: Soft, full,hypoactive bowel sounds. Tenderness over Rt. and Lt iliac fossa. Organ palpation was limited because patient was in severe pain during abdominal palpation. MUSCULOSKELETAL:No CVA tenderness. UPPER EXTREMITIES: 2+ pulses, warm, well-perfused. No peripheral edema. LOWER EXTREMITIES: 2+ pulses, warm, well-perfused. No calf tenderness. No peripheral edema. PSYCHIATRIC: Cooperative. Good eye contact. Appropriate mood and affect. SKIN: Warm, dry, normal turgor, no rashes or lesions noted, normal capillary refill. Laboratory Results - last 24 hr 12/11/19 12/11/19 12/11/19 21:35 21:35 21:35 WBC 10.9 H RBC 3.73 Hgb 12.2 Hct 35.7 D MCV 95.9 MCH 32.8 MCHC 34.2 RDW 13.7 Plt Count 173 D MPV 10.6 Absolute Neuts (auto) 9.9 H Neutrophils % 90.4 H Lymphocytes % 6.7 L D Monocytes % 2.2 L Eosinophils % 0.4 D Basophils % 0.3 Nucleated RBC % 0 Sodium 138 Potassium 4.1 Chloride 102 Carbon Dioxide 24 Anion Gap 11 BUN 8.3 Creatinine 0.9 Est GFR (CKD-EPI)AfAm 94.67 Est GFR (CKD-EPI)NonAf 81.68 Random Glucose 91 Lactic Acid 1.1 Calcium 8.9 Total Bilirubin 0.8 AST 26 ALT 16 Alkaline Phosphatase 58 Total Protein 7.4 Albumin 3.6 Lipase 41 L Urine Color Urine Appearance Urine pH Ur Specific [place] Urine Protein Urine Glucose (UA) Urine Ketones Urine Blood Urine Nitrite Urine Bilirubin Urine Urobilinogen Ur Leukocyte Esterase Urine WBC (Auto) Urine RBC (Auto) Urine Casts (Auto) U Epithel Cells (Auto) U Sm Round Cell (Auto) Urine Bacteria (Auto) Urine HCG, Qual 12/11/19 12/12/19 23:19 02:57 WBC 9.5 RBC 3.36 L Hgb 11.0 Hct 32.5 MCV 96.6 H MCH 32.6 MCHC 33.7 RDW 14.0 Plt Count 132 L D MPV 10.2 Absolute Neuts (auto) 8.2 H Neutrophils % 85.8 H Lymphocytes % 10.0 D Monocytes % 3.1 L Eosinophils % 0.6 Basophils % 0.5 Nucleated RBC % 0 Sodium Potassium Chloride Carbon Dioxide Anion Gap BUN Creatinine Est GFR (CKD-EPI)AfAm Est GFR (CKD-EPI)NonAf Random Glucose Lactic Acid Calcium Total Bilirubin AST ALT Alkaline Phosphatase Total Protein Albumin Lipase Urine Color Yellow Urine Appearance Clear Urine pH 6.0 Ur Specific [place] 1.010 Urine Protein 2+ H Urine Glucose (UA) Negative Urine Ketones 1+ H Urine Blood 2+ H Urine Nitrite Negative Urine Bilirubin Negative Urine Urobilinogen 1.0 Ur Leukocyte Esterase Negative Urine WBC (Auto) 33 Urine RBC (Auto) 59 Urine Casts (Auto) 1.92 U Epithel Cells (Auto) 59.6 U Sm Round Cell (Auto) None seen Urine Bacteria (Auto) 739.8 Urine HCG, Qual Negative ASSESSMENT/PLAN: 39-year-old female complaining of generalized lower abdominal pain left side worse than right. Sharp, worse with movement and mildly relieved when sitted. When lying down, she experiences unbearable pressure which has prompted her to sleep sitting-up in the past 2 days. #ABDOMINAL PAIN SUSPICIOUS FOR ENTERITIS -CT scan of abdomen/pelvis with IV contrast reports multifocal mesenteric edema with likely small bowel inflammation possibly infectious inflammatory or ischemic enteritis. There is also diffuse liquid stool but no colonic wall thickening, no bowel obstruction abscess or free air no adnexal masses." -Transvaginal US: Ovarian cysts and uterine fibroid. -Urine and blood culture ordered -NAAT for gonorrhea and Chlamydia ordered by ED -EKG shows NSR at 90/minute, normal QTc [address]-T wave changes. -- -Current ekg shows no significantly change when compared to prior EKG. -No old EKG available for comparison. -Initial troponin is negative. -CXR stat: ordered -FOBT ordered -Stool sample for: WBC, culture, gram stain, OXP, calprotectin -Avoid QTc prolonging meds -Continue Rocephin and Azithromycin -Consult to ID and GI sent -Viral testing for COVID-19 ordered; result pending -Patient placed on airborne, droplet and contact isolation. #FEN: -N/S 100cc/hr -Monitor and replete electrolyte prn -NPO #DISPOSITION: -DVT prophylaxis: Lovenox 40 mg SQ q 24 hours. -Advance directives - Full code Family Medical History Family History: As Documented Visit type - Emergency Visit Emergency Visit: Yes ED Registration Date: 12/12/19 Care time: The patient presented to the Emergency Department on the above date and was hospitalized for further evaluation of their emergent condition. - New Patient This patient is new to me today: Yes Date on this admission: 12/12/19 - Critical Care Critical Care patient: No ATTENDING PHYSICIAN STATEMENT I saw and evaluated the patient. I reviewed the resident's note and discussed the case with the resident. I agree with the resident's findings and plan as documented. SUBJECTIVE: OBJECTIVE: ASSESSMENT AND PLAN:
[2019-12-12] MEDS ORDERED: LACTATED RINGERS SOLUTION 1,000 ML IV SCH ×2 (04:00→21:15)
[2019-12-12 07:36] LABS: ALBUMIN 3.1 g/dl (3.4-5.0); CALCIUM 8.3 mg/dL (8.5-10.1); CREATININE 0.8 mg/dL (0.55-1.3); MAGNESIUM 2.3 mg/dL (1.8-2.4); POTASSIUM 3.2 mmol/L (3.5-5.1); TOT PROT 6.4 g/dl (6.4-8.2)
--- NOTE | 2019-12-12 08:50 | CON.GI ---
Consult Consult Specialty:: GI Referred by:: Hospitalist Service Reason for Consultation:: Abdominal pain - History of Present Illness Chief Complaint: Abdominal pain History of Present Illness: 39F admitted through [facility] ER for evaluation of abdominal pain. Pain began wednesday, lower.mid abdomen in location, associated with nausea, vomiting and diarrhea x 1 wednesday. Had chicken wings wednesday night. No travel. No rectal bleeding. Took Gas-X and Pepto bismol (noted black diarrhea after pepto bismol). Temp 100.3 over weekend. No unintentional weight loss. No similar episodes in the past. Pain persists, unchanged per patient and requesting analgesia. CT scan revealed internal hernia vs. enteritis. Also with liquid stool in the colon. Has never had upper endoscopy or colonoscopy. No family history of colorectal cancer or other GI malignancy. Home medication list includes prednisone but she denies use of any medications currently. - History Source History Provided By: Patient - Past Medical History ...LMP: 12/08/19 ...: No Additional Medical History: Denies - Past Surgical History Additional Surgical History: Fibroidectomy - Alcohol/Substance Use Hx Alcohol Use: Yes (Social) History of Substance Use: reports: None - Smoking History Smoking history: Never smoked Have you smoked in the past 12 months: No Aproximately how many cigarettes per day: 3 If you are a former smoker, when did you quit?: 5yrs - Social History Usual Living Arrangement: Alone ADL: Independent Occupation: Works for rehab center Place of : [employer] History of Recent Travel: No Home Medications - Allergies Allergies/Adverse Reactions: Allergies Allergy/AdvReac Type Severity Reaction Status Date / Time No Known Drug Allergies Allergy Verified 05/17/19 01:14 - Home Medications Home Medications: Ambulatory Orders Triamcinolone 0.5% Cream [Aristocort 0.5% Cream -] 1 applic TP TID #1 tube 05/17/19 predniSONE [Deltasone -] 40 mg PO DAILY #10 tablet 05/17/19 Family Medical History Other Family History: Mother: healthy. Father: Healthy. 3 brothers, 1 sister: healthy. 1 son: healthy. No family history of colorectal cancer, IBS, Celiac disease Review of Systems - Review of Systems Constitutional: reports: Chills, Fever Cardiovascular: denies: Chest Pain Respiratory: denies: Cough Gastrointestinal: reports: Abdominal Pain, Bloating, Diarrhea (x1), Nausea, Vomiting (x 1). denies: Constipation, Dysphagia, Indigestion, Melena, Rectal Bleeding, Vomiting Blood Physical Exam-GI Vital Signs: Vital Signs Temperature 99.8 F H 12/12/19 05:34 Pulse Rate 90 12/12/19 05:34 Respiratory Rate 20 12/12/19 05:34 Blood Pressure 110/71 12/12/19 05:34 O2 Sat by Pulse Oximetry (%) 100 12/12/19 05:34 Constitutional: Yes: Calm Eyes: No: Sclera Icterus Cardiovascular: Yes: Regular Rate and Rhythm. No: Murmur Respiratory: Yes: CTA Bilaterally Gastrointestinal Inspection: Yes: Scars. No: Distention ...Auscultate: Yes: Normoactive Bowel Sounds ...Palpate: Yes: Guarding, Soft, Tenderness (mod-severe TTP mid abdomen, left lower abdomen, right lower abdomen). No: Hepatomegaly, Splenomegaly ...Percussion: No: Tympanitic Edema: No (No LE edema) Neurological: Yes: Alert Labs: CBC, BMP 12/12/19 05:50 12/12/19 05:50 Imaging - Results Cat Scan: Report Reviewed, Image Reviewed Problem List - Problems (1) Abdominal pain Assessment/Plan: Acuity of symptoms, fevers suggestive of infectious process such as enteritis. Radiologist raised concern for possible internal hernia, however. Advise: NPO IV hydration IV abx ID consult Surgical evaluation (d/w hospitalist) Stool for culture, O&P, Norovirus, C. Diff if persistent diarrhea COVID-19 testing is pending. No respiratory symptomatology Code(s): R10.9 - UNSPECIFIED ABDOMINAL PAIN Qualifiers: Abdominal location: unspecified location Qualified Code(s): R10.9 - Unspecified abdominal pain
[2019-12-12] MEDS ORDERED: cefTRIAXone SODIUM 1 GM VIAL ONE (09:07)
[2019-12-12] MEDS ORDERED: DEXTROSE 5%-WATER - 50 ML IVPB ONE ×2 (09:08→17:24)
--- NOTE | 2019-12-12 09:08 | EKG ---
Test Reason : Blood Pressure : / mmHG Vent. Rate : 095 BPM Atrial Rate : 095 BPM P-R Int : 148 ms QRS Dur : 088 ms QT Int : 360 ms P-R-T Axes : 076 051 039 degrees QTc Int : 452 ms NORMAL SINUS RHYTHM NORMAL ECG NO PREVIOUS ECGS AVAILABLE Confirmed by Georgi Amato MD ([id number]) on 12/12/2019 9:07:42 AM Referred By: Confirmed By:Georgi Amato MD
[2019-12-12] MEDS ORDERED: KETOROLAC TROMETHAMINE 15 MG/ML VIAL IVPUSH PRN ×3 (09:19→21:26)
[2019-12-12] MEDS ORDERED: ENOXAPARIN NA (PORCINE) 40 MG/0.4 ML DISP.SYRIN SQ SCH (10:00)
[2019-12-12] MEDS ORDERED: CEFTRIAXONE 1 GM in DEXTROSE 5%-WATER - 50 ML IVPB SCH (10:00)
[2019-12-12] MEDS: KCL 10 MEQ IVPB 10 MEQ/100 ML INFUS.BAG IVPB SCH ×2 (10:03→12:46)
--- NOTE | 2019-12-12 10:24 | PN ---
Progress Note (short form) - Note Progress Note: Spoke with Dr. Bird. No evidence of SMV thrombosis. Problem List - Problems (1) Abdominal pain Code(s): R10.9 - UNSPECIFIED ABDOMINAL PAIN Qualifiers: Abdominal location: unspecified location Qualified Code(s): R10.9 - Unspecified abdominal pain
--- NOTE | 2019-12-12 11:11 | CON.ID ---
Consult Consult Specialty:: infectious diseases Referred by:: hospitalist Reason for Consultation:: abd pain,fever - History of Present Illness Chief Complaint: abd pain,fever History of Present Illness: 39F admitted for evaluation of abdominal pain. mentions that she had her period on and then pain began wednesday, lower.mid abdomen in location, associated with nausea, vomiting and diarrhea x 1 wednesday. Had chicken wings wednesday night. patient thought this was due to her periods mbut then she spiked a fever and antoine chinchilla came to the hospital currently her pain is quite significant no history of colon ca in the family she is sexually active only with one partner - History Source History Provided By: Patient Limitations to Obtaining History: No Limitations - Past Medical History ...LMP: 12/08/19 ...: No Additional Medical History: Denies - Past Surgical History Additional Surgical History: Fibroidectomy - Alcohol/Substance Use Hx Alcohol Use: Yes (Social) History of Substance Use: reports: None - Smoking History Smoking history: Never smoked Have you smoked in the past 12 months: No Aproximately how many cigarettes per day: 3 If you are a former smoker, when did you quit?: 5yrs - Social History Usual Living Arrangement: Alone ADL: Independent 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 Father: Healthy. 3 brothers, 1 sister: healthy. 1 son: healthy. No family history of colorectal cancer, IBS, Celiac disease Review of Systems - Review of Systems Constitutional: reports: Fever, Other Eyes: reports: No Symptoms HENT: reports: No Symptoms Neck: reports: No Symptoms Cardiovascular: reports: No Symptoms Respiratory: reports: No Symptoms Gastrointestinal: reports: Abdominal Pain, Vomiting Genitourinary: reports: No Symptoms Musculoskeletal: reports: No Symptoms Integumentary: reports: No Symptoms Neurological: reports: No Symptoms Endocrine: reports: No Symptoms Hematology/Lymphatic: reports: No Symptoms Psychiatric: reports: No Symptoms Physical Exam Vital Signs: Vital Signs Temperature 99.8 F H 12/12/19 05:34 Pulse Rate 90 12/12/19 05:34 Respiratory Rate 20 12/12/19 05:34 Blood Pressure 110/71 12/12/19 05:34 O2 Sat by Pulse Oximetry (%) 100 12/12/19 05:34 Constitutional: Yes: Calm, Mild Distress Eyes: Yes: Conjunctiva Clear HENT: Yes: Atraumatic, Normocephalic Neck: Yes: Supple, Trachea Midline Cardiovascular: Yes: Regular Rate and Rhythm Respiratory: Yes: Regular, CTA Bilaterally Gastrointestinal: Yes: Soft, Hypoactive Bowel Sounds, Tenderness. No: Tenderness, Rebound Musculoskeletal: Yes: WNL Extremities: Yes: WNL Neurological: Yes: Alert, Oriented Psychiatric: Yes: Alert, Oriented Labs: CBC, BMP 12/12/19 05:50 12/12/19 05:50 Imaging - Results Chest X-ray: Report Reviewed, Image Reviewed Cat Scan: Report Reviewed, Image Reviewed Ultrasound: Report Reviewed, Image Reviewed Assessment/Plan this young patient coming to the hospital with abd pain findings noted would suggest 1 iv abx 2.surgical consult 3.npo 4.gi 5.hydration
[2019-12-12] MEDS ORDERED: LORazepam 2 MG/ML SDV VIAL IVPUSH PRN ×2 (12:54→21:26)
--- NOTE | 2019-12-12 12:55 | PN ---
Physical Exam: SUBJECTIVE: Patient seen and examined. Tells me she is having anxiety and abdominal pain 02/02. OBJECTIVE: Patient is a 39 year old female admitted on 12/12/2019 for generalized lower abdominal pain left side worse than right. Sharp, worse with movement. patient has hx of ectopic and tubal blockade. CT scan shows partial SBO and internal hernia. Surgery has been consulted and patient for the OR today. Period Temp Pulse Resp BP Sys/Carpio Pulse Ox Last 24 Hr 98.2 F-100.5 F 90-110 19-20 110-136/71-87 97-100 GENERAL: The patient is awake, alert, and fully oriented, in moderate abdominal pain HEAD: Normal with no signs of trauma. EYES: PERRL, extraocular movements intact, sclera anicteric, conjunctiva clear. No ptosis. ENT: Ears normal, nares patent, oropharynx clear without exudates, moist mucous membranes. NECK: Trachea midline, full range of motion, supple. LUNGS: Breath sounds equal, clear to auscultation bilaterally HEART: Regular rate and rhythm ABDOMEN: mildly distended, soft, +guarding. + bowel sounds. no BM since last Wednesday per patient. EXTREMITIES: no edema. NEUROLOGICAL: Normal speech, gait not observed. Laboratory Results - last 24 hr 12/11/19 12/11/19 12/11/19 21:35 21:35 21:35 WBC 10.9 H Corrected WBC (auto) RBC 3.73 Hgb 12.2 Hct 35.7 D MCV 95.9 MCH 32.8 MCHC 34.2 RDW 13.7 Plt Count 173 D MPV 10.6 Absolute Neuts (auto) 9.9 H Neutrophils % 90.4 H Lymphocytes % 6.7 L D Monocytes % 2.2 L Eosinophils % 0.4 D Basophils % 0.3 Nucleated RBC % 0 Platelet Estimate Platelet Comment Sodium 138 Potassium 4.1 Chloride 102 Carbon Dioxide 24 Anion Gap 11 BUN 8.3 Creatinine 0.9 Est GFR (CKD-EPI)AfAm 94.67 Est GFR (CKD-EPI)NonAf 81.68 Random Glucose 91 Lactic Acid 1.1 Calcium 8.9 Phosphorus Magnesium Total Bilirubin 0.8 AST 26 ALT 16 Alkaline Phosphatase 58 Total Protein 7.4 Albumin 3.6 Total Amylase Lipase 41 L TSH Urine Color Urine Appearance Urine pH Ur Specific [place] Urine Protein Urine Glucose (UA) Urine Ketones Urine Blood Urine Nitrite Urine Bilirubin Urine Urobilinogen Ur Leukocyte Esterase Urine WBC (Auto) Urine RBC (Auto) Urine Casts (Auto) U Epithel Cells (Auto) U Sm Round Cell (Auto) Urine Bacteria (Auto) Urine HCG, Qual 12/11/19 12/12/19 12/12/19 23:19 02:57 02:57 WBC 9.5 Corrected WBC (auto) RBC 3.36 L Hgb 11.0 Hct 32.5 MCV 96.6 H MCH 32.6 MCHC 33.7 RDW 14.0 Plt Count 132 L D MPV 10.2 Absolute Neuts (auto) 8.2 H Neutrophils % 85.8 H Lymphocytes % 10.0 D Monocytes % 3.1 L Eosinophils % 0.6 Basophils % 0.5 Nucleated RBC % 0 Platelet Estimate Platelet Comment Sodium Potassium Chloride Carbon Dioxide Anion Gap BUN Creatinine Est GFR (CKD-EPI)AfAm Est GFR (CKD-EPI)NonAf Random Glucose Lactic Acid 0.4 Calcium Phosphorus Magnesium Total Bilirubin AST ALT Alkaline Phosphatase Total Protein Albumin Total Amylase Lipase TSH Urine Color Yellow Urine Appearance Clear Urine pH 6.0 Ur Specific [place] 1.010 Urine Protein 2+ H Urine Glucose (UA) Negative Urine Ketones 1+ H Urine Blood 2+ H Urine Nitrite Negative Urine Bilirubin Negative Urine Urobilinogen 1.0 Ur Leukocyte Esterase Negative Urine WBC (Auto) 33 Urine RBC (Auto) 59 Urine Casts (Auto) 1.92 U Epithel Cells (Auto) 59.6 U Sm Round Cell (Auto) None seen Urine Bacteria (Auto) 739.8 Urine HCG, Qual Negative 12/12/19 12/12/19 12/12/19 04:50 05:50 05:50 WBC Cancelled Corrected WBC (auto) Cancelled RBC Cancelled Hgb Cancelled Hct Cancelled MCV Cancelled MCH Cancelled MCHC Cancelled RDW Cancelled Plt Count Cancelled MPV Cancelled Absolute Neuts (auto) Cancelled Neutrophils % Cancelled Lymphocytes % Cancelled Monocytes % Cancelled Eosinophils % Cancelled Basophils % Cancelled Nucleated RBC % Cancelled Platelet Estimate Cancelled Platelet Comment Cancelled Sodium 138 Potassium 3.2 L Chloride 104 Carbon Dioxide 26 Anion Gap 8 BUN 6.0 L Creatinine 0.8 Est GFR (CKD-EPI)AfAm 109.16 Est GFR (CKD-EPI)NonAf 94.18 Random Glucose 86 Lactic Acid Calcium 8.3 L Phosphorus 2.0 L Magnesium 2.3 Total Bilirubin 1.0 AST 9 L ALT 11 L Alkaline Phosphatase 57 Total Protein 6.4 Albumin 3.1 L Total Amylase 20 L Lipase TSH 2.02 Urine Color Urine Appearance Urine pH Ur Specific [place] Urine Protein Urine Glucose (UA) Urine Ketones Urine Blood Urine Nitrite Urine Bilirubin Urine Urobilinogen Ur Leukocyte Esterase Urine WBC (Auto) Urine RBC (Auto) Urine Casts (Auto) U Epithel Cells (Auto) U Sm Round Cell (Auto) Urine Bacteria (Auto) Urine HCG, Qual Active Medications Generic Name Dose Route Start Last Admin Trade Name Freq PRN Reason Stop Dose Admin Enoxaparin Sodium 40 mg 12/12/19 10:00 12/12/19 10:03 Lovenox - SQ 40 mg DAILY MARY Administration Sodium Chloride 1,000 mls @ 125 mls/hr 12/12/19 03:00 12/12/19 03:05 Normal Saline - IV 125 mls/hr ASDIR MARY Administration Metronidazole 500 mg in 100 mls @ 100 mls/hr 12/12/19 10:00 12/12/19 10:03 Flagyl 500mg Premixed Ivpb - IVPB 100 mls/hr Q8H-IV MARY Administration Piperacillin Sod/Tazobactam 50 mls @ 100 mls/hr 12/12/19 18:00 Sod 3.375 gm/ Dextrose IVPB Q8H-IV MARY Protocol Ketorolac Tromethamine 15 mg 12/12/19 12:55 Toradol Injection - IVPUSH 12/17/19 09:18 Q4H PRN PAIN LEVEL 6-10 Lorazepam 0.5 mg 12/12/19 12:54 Ativan Injection - IVPUSH BID PRN ANXIETY ASSESSMENT/PLAN: Problem List - Problems (1) Abdominal pain Assessment/Plan: Abdominal pain, severe CT scan shows possible internal hernia on ABD CT scan (mesenteric edema in a swirling pattern suggesting internal hernia). On Zosyn/Flagyl as CT scan suggestive of infectious process ID/Surgery following Maintain NPO continue IVF pain management incentive spirometer Patient for the OR tonight for diagnostic laparoscopy covid pending Code(s): R10.9 - UNSPECIFIED ABDOMINAL PAIN Qualifiers: Abdominal location: unspecified location Qualified Code(s): R10.9 - Unspecified abdominal pain (2) Pelvic pain Code(s): R10.2 - PELVIC AND PERINEAL PAIN (3) DVT prophylaxis Assessment/Plan: SCDs in the anticipation of surgical interventions Code(s): Z29.9 - ENCOUNTER FOR PROPHYLACTIC MEASURES, UNSPECIFIED Visit type - Emergency Visit Emergency Visit: Yes ED Registration Date: 12/12/19 Care time: The patient presented to the Emergency Department on the above date and was hospitalized for further evaluation of their emergent condition. - New Patient This patient is new to me today: Yes Date on this admission: 12/12/19 - Critical Care Critical Care patient: No - Discharge Referral Referred to [facility] Med P.C.: No
--- NOTE | 2019-12-12 14:20 | CONSULT ---
- Consultation REQUESTING PROVIDER: General Surgery - Dr. Mckeon CONSULT REQUEST: We have been asked to surgically evaluate this patient for abd pain. [facility] Hospitalist: Jack De Paz NP HPI: Called to eval 39 yo F PMHx incudes G4 Para 1: Aborta x 1, Miscarriage x 1, only child now 19yrs of age. Presents to [facility] ED for emergent evaluation of her abd pain which started this past Wednesday. States initially lower abd (LLQ>RLQ). Pain radiates to the periumblical region with associated loss of appetite, n/v (bnnb) and diarrhea x1. Last meal eaten was chicken wings (Sat.). Tried to alleviate pain with Gas-X and Pepto. Spiked a temp to 103F. Came to ER for further evaluation. Patient states she's never experienced this in the past. Her only PSHx includes uterine fibroids (pfannenstiel incision). Since admit to hospital, pain has migrated to epigastric region but still having RLQ pain as well. Pain continues to persist even with narcotic pain management. Today, attempted to get oob and ambulate to the bathroom and was unable to stand fully erect secondary to pain. Walked in a hunched-over position. LMP 12/08/19. Denies CP, palpitations, SOB or CALLAHAN. Denies loss of appetite, weight change. Denies abd distension, constipation, melena or hematochezia. Denies dysuria, frequency, urgency, hesitancy, hematuria, or flank pain. Denies bladder or bowel incontinence. Denies malodourous vaginal discharge and STI exposure. Denies ever having an EGD/Colonoscopy. Denies FHx of colorectal CA. ABD/Pelvis CT scan which identified thickened and edematous loops of SB w/i mid- abd. Liquid stool in colon. Mesenteric edema in a swirling pattern suggesting internal hernia. Fibroid uterus & involuting LEFT ovarian cyst. Former smoker: 5yrs ago PMHx: Leiomyoma of the uterus. Ruptured ectopic PSHx: Uterine Myomectomy (02/07/[address] Taylor) Laprascopic Left salpingectomy secondary to ruptured ectopic 08/27/2013 (Dr. Marcella osorio) Home Meds Triamcinilone 0.5% cream. 1 application TID Prednisone 40 mg PO Daily Allergies: NKDA ROS: CONSTITUTIONAL: Absent: fever(at home), chills, diaphoresis, generalized weakness, malaise CARDIOVASCULAR: Absent: syncope, irregular heart rate, lightheadedness, peripheral edema RESPIRATORY: Absent: cough, wheezing, stridor, hemoptysis GASTROINTESTINAL:see hpi GENITOURINARY: Absent: see hpi MUSCULOSKELETAL: Absent: myalgia, arthralgia, joint swelling, back pain, neck pain SKIN: Absent: rash, itching, pallor HEMATOLOGIC/IMMUNOLOGIC: Absent: easy bleeding, easy bruising, lymphadenopathy NEUROLOGIC: Absent: headache, focal weakness, paresthesias, dizziness, unsteady gait, seizure, mental status changes PSYCHIATRIC: Absent: anxiety, depression, suicidal or homicidal ideation, hallucinations. PE: GENERAL: A&O. NAD HEAD: NC. AT. EYES: PERRL, sclera anicteric, conjunctiva clear. NECK: Normal ROM, supple without lymphadenopathy, JVD, or masses. LUNGS: Unlabored respirations on room air HEART: RRR ABDOMEN: Soft. Not distended. Normoactive bs in all quadrants. RLQ/RUQ/Epigastric ttp. MUSCULOSKELETAL: No CVAT bilat UE: 2+ pulses, warm, well-perfused. No cyanosis. Cap refill <2 seconds. No peripheral edema. LE: 2+ pulses, warm, well-perfused. No calf tenderness. No peripheral edema. NEUROLOGICAL: Normal speech, gait not observed. PSYCH: Cooperative. Good eye contact. Appropriate mood and affect. SKIN: Warm, dry, normal turgor, no rashes or lesions noted. Last Vital Signs Temp Pulse Resp BP Pulse Ox 98.2 F 96 H 20 136/81 98 12/12/19 08:00 12/12/19 08:00 12/12/19 08:00 12/12/19 08:00 12/12/19 08:00 BMP 12/12/19 05:50 CBC 12/12/19 02:57 WBC 9.5 RBC 3.36 L Hgb 11.0 Hct 32.5 Plt Count 132 L D Hepatic Panel Total Bilirubin 1.0 mg/dL (0.2-1) 12/12/19 05:50 AST 9 U/L (15-37) L 12/12/19 05:50 ALT 11 U/L (13-61) L 12/12/19 05:50 Alkaline Phosphatase 57 U/L (45-117) 12/12/19 05:50 Albumin 3.1 g/dl (3.4-5.0) L 12/12/19 05:50 Urine Test Results Urine Color Yellow 12/11/19 23:19 Urine Appearance Clear 12/11/19 23:19 Urine pH 6.0 (5.0-8.0) 12/11/19 23:19 Ur Specific [place] 1.010 (1.010-1.035) 12/11/19 23:19 Urine Protein 2+ (NEGATIVE) H 12/11/19 23:19 Urine Glucose (UA) Negative (NEGATIVE) 12/11/19 23:19 Urine Ketones 1+ (NEGATIVE) H 12/11/19 23:19 Urine Blood 2+ (NEGATIVE) H 12/11/19 23:19 Urine Nitrite Negative (NEGATIVE) 12/11/19 23:19 Urine Bilirubin Negative (NEGATIVE) 12/11/19 23:19 Ur Leukocyte Esterase Negative (NEGATIVE) 12/11/19 23:19 Serology Tests 12/12/19 12/12/19 01:55 02:57 C. trachomatis (DOREEN) Pending COVID-19 (DOREEN) Pending N. gonorrhoeae (DOREEN) Pending A/P: 39 yo female admitted with abd pain, n/v and diarrhea. Acuity of symptoms suggestive of infectious process such as enteritis. However, in addition to possibility of enteritis, Radiologists identified a possible internal hernia on ABD CT scan (mesenteric edema in a swirling pattern suggesting internal hernia). Currently on narcotic pain management and states it's barely effective. -NPO -IVF -GI PPX -DVT PPx -Patient to go to OR [facility] around 1830hrs for Diagnostic laparoscopy, possible open -Ofirmev 1 gm IVPB Q8H in addition to narcotics for pain management or fever > 100.3F -Covid pending; strict isolation precautions Above plans discussed with Dr. Rico and agrees Problem List - Problems (1) Abdominal pain Code(s): R10.9 - UNSPECIFIED ABDOMINAL PAIN Qualifiers: Abdominal location: unspecified location Qualified Code(s): R10.9 - Unspecified abdominal pain (2) Fever Code(s): R50.9 - FEVER, UNSPECIFIED Qualifiers: Fever type: unspecified Qualified Code(s): R50.9 - Fever, unspecified Visit type - Case Type Case Type: ED Admission - Emergency Emergency Visit: Yes ED Registration Date: 12/12/19 Care time: The patient presented to the Emergency Department on the above date and was hospitalized for further evaluation of their emergent condition. - New patient This patient is new to me today: Yes Date on this admission: 12/12/19
[2019-12-12] MEDS ORDERED: PIPERACILLIN/TAZOBACTAM 3.375 GM VIAL IVPB ONE (17:23)
[2019-12-12] MEDS ORDERED: INSULIN (NOVOLOG) ASPART 100 UNITS/ML 10ML VIAL ONE (17:23)
[2019-12-12 17:45] LABS: INR 1.2 (0.83-1.09); PROTHROMBIN TIME (PATIENT) 14.2 SEC (9.7-13.0)
[2019-12-12] MEDS ORDERED: PIPERACILLIN/TAZOB 3.375 GM 3.375 GM in DEXTROSE 5%-WATER - 50 ML IVPB SCH (18:00)
[2019-12-12] MEDS ORDERED: fentaNYL CITRATE 250 MCG/5 ML VIAL ONE (18:27)
[2019-12-12] MEDS ORDERED: SUCCINYLCHOLINE CHLORIDE 200 MG/10 ML SYRINGE ONE (18:27)
[2019-12-12] MEDS ORDERED: PROPOFOL 20 ML ONE ×2 (18:27)
[2019-12-12] MEDS ORDERED: MIDAZOLAM HCL 2 MG/2 ML SINGLE DOSE VIAL ONE (18:27)
[2019-12-12] MEDS ORDERED: ROCURONIUM BROMIDE 50 MG/5 ML SYRINGE ONE (18:27)
[2019-12-12] MEDS ORDERED: BUPIVACAINE HCL/PF 0.5% (5 MG/ML) 30 ML VIAL IJ ONE (20:15)
[2019-12-12] MEDS ORDERED: NEOSTIGMINE METHYLSULFATE 0.5 MG/ML - 10 ML MDV ONE (20:36)
[2019-12-12] MEDS ORDERED: morphine CARPU-JECT 2 MG/1 ML DISP.SYRIN IVPUSH PRN (21:14)
--- NOTE | 2019-12-12 21:23 | OP ---
Operative Note - Note: Operative Date: 12/12/19 Pre-Operative Diagnosis: SBO internal hernia Operation: Diagnostic laproscopy converted to open, internal hernia reduction and closure of mesenteric defect. Post-Operative Diagnosis: Same as Pre-op Surgeon: Juan Rico Sheeter Machine Operator: Boyd Hicks Anesthesiologist/WEED CUTTER: Ashish Light Anesthesia: General Estimated Blood Loss (mls): 25 Operative Report Dictated: Yes
[2019-12-12] MEDS: ACETAMINOPHEN 1000 MG/100 ML VIAL (NON FORMULARY) IVPB PRN (21:25)
[2019-12-12] MEDS ORDERED: ACETAMINOPHEN INJECTION 100 ML IVPB ONE (21:29)
[2019-12-12] MEDS: LACTATED RINGERS SOLUTION 1,000 ML/1,000 ML INFUS.BAG IV SCH (21:45)
--- NOTE | 2019-12-13 00:12 | OP ---
DATE OF OPERATION: 12/12/2019 PREOPERATIVE DIAGNOSIS: Abdominal pain, internal hernia. POSTOPERATIVE DIAGNOSIS: Abdominal pain, internal hernia. PROCEDURE: Diagnostic laparoscopy, conversion to open exploratory laparotomy, reduction and repair mesentery defect. INDICATION: This is a 39-year-old female presents for to the hospital with abdominal pain. She is admitted and CT scan is obtained which revealed what appeared to be a mesenteric edema and question of internal hernia, for which surgical evaluation was called. On evaluation, she appeared to have abdominal tenderness, and given the findings of the CT, I recommended she undergo surgical exploration first by diagnostic laparoscopy and perhaps laparotomy. She agreed to proceed as recommended. DESCRIPTION OF PROCEDURE: In the operating room, she was placed in the supine position. After induction of general anesthesia, was prepared and draped in the usual sterile fashion. The operation was begun with insufflation with Veress needle left costal margin. A 5-mm port introduced at the site of Tineo's point and then under direct vision 3 other 5-mm ports were introduced in an arc fashion along the left side of the abdomen towards the pelvis. Lysis of adhesions were sharply using an Endoshears and to release omental adhesions and expose what appeared to be a midline mass involving which was unclear what contents was but given its size and location, it was decided that it would be in best interest to convert to an open operation, and so at this point the laparoscopy was terminated, the ports were removed. Midline incision was performed with a scalpel near the xiphoid and extended beyond the umbilicus. The fascia was incised sharply, and the peritoneal cavity was entered under direct vision. Carlos A retractor was positioned and to protect the wound. The mass was delivered into the abdominal cavity and into the wound and appeared to be involved in the transverse colon. The anatomy was unclear. The transverse colon and the right colon were mobilized by the line of Toldt and brought into the midline. The mass was then slowly dissected to see if we could separate it from the mesentery of the transverse colon. At this point it became clear that this was a hernia sac and contents of small bowel. The sac was then divided and entered, and the small bowel within the sac was released. It contained loops of small bowel that were edematous with fibrinous exudate but no evidence of perforation. The sac was completely released. The small bowel was delivered. It appeared to be incarcerated in the supracolic space. It was then slowly reduced into the infracolic space, and small bowel was at this point run from the ligament of Treitz all the way down to the ileocecal valve and was in good position, then mesentery defect in the transverse mesocolon was then closed using the 2-0 Ethibond suture in a running fashion. With that completed, the entire perineal cavity was irrigated and suctioned and final check for hemostasis was performed, and then the fascia was closed with a number 1 PDS double stranded suture in the running fashion from both ends of the wound and then tied in the middle. The wound was approximated with 3-0 Vicryl sutures and the skin was closed with sonia. Sterile dressing was applied, and the patient was returned to the recovery room awake and alert. Patient tolerated procedure well. Ananda [id number] MTDD
[2019-12-13] MEDS: MORPHINE SULFATE 2 MG/ML VIAL IVPUSH PRN ×3 (01:01→09:08)
--- NOTE | 2019-12-13 08:48 | PN ---
Progress Note (short form) - Note Progress Note: GENERAL SURGERY POD #1 No acute events since surgery per RN notes. Alert. In bed at 30 degrees. Hasn't been oob yet. NGT present. C/o incisional tenderness. Denies n/v/f/c, CP, palpitations, SOB or CALLAHAN. Last Vital Signs Temp Pulse Resp BP Pulse Ox 98.5 F 98 H 20 113/64 100 12/13/19 06:00 12/13/19 06:00 12/13/19 06:00 12/13/19 06:00 12/12/19 22:30 PE GEN: alert. mild discomfort (to be expected) PULM: unlabored respirations on room air COR: rrr ABD: laprascopic ports c/d/i. Midline incision primary dressing c/d/i (didn't take down as it's less than 24hrs) LE: all compartments soft/supple/NT. SCDs bilat. Warm. A/P: POD #1 s/p Diagnostic laproscopy converted to open, internal hernia reduction and closure of mesenteric defect under GA -Dilaudid [employer] MAINTENANCE REPAIRER for pain management -f/u CBC, BMP -Replete elytes prn -OOB to chair with assistance -Insert watikns cath (hasn't voided since surgery) -Incentive spirometer -dc NGT -GI PPx -DVT PPx Above plan discussed with Dr. Rico and agrees. Problem List - Problems (1) Obstruction concurrent with and due to internal hernia of abdomen Code(s): K46.0 - UNSP ABDOMINAL HERNIA WITH OBSTRUCTION, WITHOUT GANGRENE (2) Abdominal pain Code(s): R10.9 - UNSPECIFIED ABDOMINAL PAIN Qualifiers: Abdominal location: unspecified location Qualified Code(s): R10.9 - Unspecified abdominal pain
[2019-12-13] MEDS ORDERED: PT OWN MED DRAWER 7, Y5N ONE ×2 (09:07→15:07)
[2019-12-13] MEDS: ENOXAPARIN NA (PORCINE) 40 MG/0.4 ML DISP.SYRIN SQ SCH (09:10)
--- NOTE | 2019-12-13 10:06 | PN ---
Progress Note, Physician History of Present Illness: post op abd pain - Current Medication List Current Medications: Active Medications Acetaminophen (Ofirmev Injection -) 1,000 mg IVPB Q6H PRN PRN Reason: FEVER Stop: 12/13/19 21:16 Last Admin: 12/12/19 21:25 Dose: 1,000 mg Documented by: Enoxaparin Sodium (Lovenox -) 40 mg SQ DAILY [facility] [place] Last Admin: 12/13/19 09:10 Dose: 40 mg Documented by: Fentanyl (Sublimaze Injection -) 50 mcg IVPUSH [id number] PRN PRN Reason: PAIN-PACU ORDER X 4 DOSES ONLY Last Admin: 12/12/19 22:00 Dose: 50 mcg Documented by: Hydromorphone HCl (Hydromorphone 10 Mg/50 Ml-Ns) 10 mg GENETICIST GENETICIST [facility] [place]; Protocol Stop: 12/20/19 08:49 Lactated Ringer's (Lactated Ringers Solution) 1,000 ml in 1,000 mls @ 125 mls/hr IV ASDIR [facility] [place] Last Admin: 12/12/19 21:45 Dose: 200 mls Documented by: Ketorolac Tromethamine (Toradol Injection -) 15 mg IVPUSH Q4H PRN PRN Reason: PAIN LEVEL 6-10 Stop: 12/17/19 09:18 Lorazepam (Ativan Injection -) 0.5 mg IVPUSH BID PRN PRN Reason: ANXIETY Morphine Sulfate (Morphine Sulfate) 2 mg IVPUSH Q4H PRN PRN Reason: PAIN LEVEL 6-10 Last Admin: 12/13/19 09:08 Dose: 2 mg Documented by: - Objective Vital Signs: Vital Signs Temperature 98.5 F 12/13/19 06:00 Pulse Rate 98 H 12/13/19 06:00 Respiratory Rate 20 12/13/19 06:00 Blood Pressure 113/64 12/13/19 06:00 O2 Sat by Pulse Oximetry (%) 100 12/12/19 22:30 Constitutional: Yes: Calm, Mild Distress Cardiovascular: Yes: S1, S2 Respiratory: Yes: Regular, CTA Bilaterally Gastrointestinal: Yes: Normal Bowel Sounds, Soft ...Rectal Exam: Yes: WNL Genitourinary: Yes: WNL Musculoskeletal: Yes: WNL Extremities: Yes: WNL Integumentary: Yes: WNL Wound/Incision: Yes: Dressing Dry and Intact, Draining Neurological: Yes: Alert, Oriented Psychiatric: Yes: Alert, Oriented Labs: CBC, BMP 12/12/19 05:50 12/12/19 05:50 INR, PTT INR 1.20 (0.83-1.09) H 12/12/19 17:00 Assessment/Plan Problem List - Problems (1) Abdominal pain Code(s): R10.9 - UNSPECIFIED ABDOMINAL PAIN Qualifiers: Abdominal location: unspecified location Qualified Code(s): R10.9 - Unspecified abdominal pain (2) Pelvic pain Code(s): R10.2 - PELVIC AND PERINEAL PAIN mesenteric edema internal hernia plan post op patient with pain otherwise stable continue hydration npo abx rest as per surgical team
[2019-12-13 10:46] LABS: BASO % 0.3 % (0-2.0); EOS % 0.5 % (0-4.5); HEMATOCRIT 32.9 % (32.4-45.2); HEMOGLOBIN 11.2 GM/dL (10.7-15.3); LYMPH % 9.5 % (8-40); MCH 32.8 pg (25.7-33.7); MCHC 33.9 g/dl (32.0-36.0); MEAN CELL VOLUME 96.7 fl (80-96); MEAN PLT VOLUME 9.9 fl (7.5-11.1); MONO % 5.3 % (3.8-10.2); NEUT % 84.4 % (42.8-82.8); PLATELET COUNT 180 K/MM3 (134-434); RDW 13.9 % (11.6-15.6); WHITE BLOOD COUNT 7.4 K/mm3 (4.0-10.0)
[2019-12-13 11:12] LABS: ALBUMIN 2.6 g/dl (3.4-5.0); BILIRUBIN,TOTAL 0.9 mg/dL (0.2-1); BLOOD UREA NITROGEN 5.1 mg/dL (7-18); CALCIUM 8.1 mg/dL (8.5-10.1); CREATININE 0.6 mg/dL (0.55-1.3); MAGNESIUM 2.3 mg/dL (1.8-2.4); POTASSIUM 3.7 mmol/L (3.5-5.1); TOT PROT 5.9 g/dl (6.4-8.2)
[2019-12-13] MEDS ORDERED: PCA PUMP NR ONE (11:38)
--- NOTE | 2019-12-13 11:44 | PN ---
Progress Note (short form) - Note Progress Note: Anesthesia postop note 39 y/o F s/p GA for E lap POD#1, vss, aaox3, some pain over night, pain management per surgery. No anesthesia complications.
[2019-12-13] MEDS: HYDROmorphone *PCA* 10MG/50ML DISP.SYRIN PCA SCH (11:47)
[2019-12-13] MEDS ORDERED: PIPERACILLIN/TAZOB 3.375 GM 3.375 GM in DEXTROSE 5%-WATER - 50 ML IVPB ONE (13:56)
[2019-12-13] MEDS ORDERED: VANCOMYCIN HCL 1,500 MG in DEXTROSE 5%-WATER - 500 ML IVPB ONE (13:57)
[2019-12-13] MEDS ORDERED: PANTOPRAZOLE SODIUM 40 MG VIAL IVPUSH ONE (14:11)
[2019-12-13] MEDS: LACTATED RINGERS SOLUTION 1,000 ML/1,000 ML INFUS.BAG IV SCH ×2 (14:58→23:43)
[2019-12-13] MEDS ORDERED: PIPERACILLIN/TAZOBACTAM 3.375 GM VIAL IVPB ONE (15:07)
[2019-12-13] MEDS ORDERED: DEXTROSE 5%-WATER - 50 ML IVPB ONE (15:08)
--- NOTE | 2019-12-13 17:07 | PN ---
Physical Exam: SUBJECTIVE: Patient seen and examined at the bedside. c/o of intermittent gas pain. OBJECTIVE: Patient is a 39 year old female admitted on 12/12/2019 for generalized lower abdominal pain left side worse than right. Sharp, worse with movement. patient has hx of ectopic and tubal blockade. CT scan shows partial SBO and internal hernia. Patient is s/p diagnostic laproscopy converted to open, internal hernia reduction and closure of mesenteric defect on 12/12/2019. Period Temp Pulse Resp BP Sys/Carpio Pulse Ox Last 24 Hr 97.6 F-99.9 F 94-113 12-20 113-132/64-75 98-100 GENERAL: The patient is awake, alert, and fully oriented, in no acute distress HEAD: Normal with no signs of trauma. EYES: PERRL, extraocular movements intact, sclera anicteric, conjunctiva clear. No ptosis. ENT: Ears normal, nares patent, oropharynx clear without exudates, moist mucous membranes. NECK: Trachea midline, full range of motion, supple. LUNGS: Breath sounds equal, clear to auscultation bilaterally HEART: Regular rate and rhythm ABDOMEN: mildly distended, surgical dressing c/d/i EXTREMITIES: no edema. NEUROLOGICAL: Normal speech, gait not observed. Laboratory Results - last 24 hr 12/12/19 12/12/19 12/12/19 02:57 17:00 18:40 WBC RBC Hgb Hct MCV MCH MCHC RDW Plt Count MPV Absolute Neuts (auto) Neutrophils % Lymphocytes % Monocytes % Eosinophils % Basophils % Nucleated RBC % PT with INR 14.20 H INR 1.20 H Sodium Potassium Chloride Carbon Dioxide Anion Gap BUN Creatinine Est GFR (CKD-EPI)AfAm Est GFR (CKD-EPI)NonAf Random Glucose Calcium Magnesium Total Bilirubin AST ALT Alkaline Phosphatase Total Protein Albumin COVID-19 (DOREEN) Not detected Blood Type A NEGATIVE Antibody Screen Negative 12/13/19 12/13/19 09:20 09:20 WBC 7.4 RBC 3.40 L Hgb 11.2 Hct 32.9 MCV 96.7 H MCH 32.8 MCHC 33.9 RDW 13.9 Plt Count 180 D MPV 9.9 Absolute Neuts (auto) 6.2 Neutrophils % 84.4 H Lymphocytes % 9.5 Monocytes % 5.3 Eosinophils % 0.5 Basophils % 0.3 Nucleated RBC % 0 PT with INR INR Sodium 140 Potassium 3.7 Chloride 106 Carbon Dioxide 23 Anion Gap 10 BUN 5.1 L Creatinine 0.6 Est GFR (CKD-EPI)AfAm 134.96 Est GFR (CKD-EPI)NonAf 116.44 Random Glucose 93 Calcium 8.1 L Magnesium 2.3 Total Bilirubin 0.9 AST 13 L ALT 10 L Alkaline Phosphatase 55 Total Protein 5.9 L Albumin 2.6 L COVID-19 (DOREEN) Blood Type Antibody Screen Active Medications Generic Name Dose Route Start Last Admin Trade Name Freq PRN Reason Stop Dose Admin Acetaminophen 1,000 mg 12/12/19 21:16 12/12/19 21:25 Ofirmev Injection - IVPB 12/13/19 21:16 1,000 mg Q6H PRN Administration FEVER Enoxaparin Sodium 40 mg 12/13/19 10:00 12/13/19 09:10 Lovenox - SQ 40 mg DAILY MARY Administration Fentanyl 50 mcg 12/12/19 21:15 12/12/19 22:00 Sublimaze Injection - IVPUSH 50 mcg [id number] PRN Administration PAIN-PACU ORDER X 4 DOSES ONLY Hydromorphone HCl 10 mg 12/13/19 09:00 12/13/19 11:47 Hydromorphone 10 Mg/50 Ml-Ns ELECTORAL OFFICER 12/20/19 08:49 10 mg ELECTORAL OFFICER MARY Administration Protocol Lactated Ringer's 1,000 ml in 1,000 mls @ 125 mls/hr 12/12/19 21:30 12/13/19 14:58 Lactated Ringers Solution IV 125 mls/hr ASDIR MARY Administration Ketorolac Tromethamine 15 mg 12/12/19 21:26 Toradol Injection - IVPUSH 12/17/19 09:18 Q4H PRN PAIN LEVEL 6-10 Lorazepam 0.5 mg 12/12/19 21:26 Ativan Injection - IVPUSH BID PRN ANXIETY Morphine Sulfate 2 mg 12/12/19 21:19 12/13/19 09:08 Morphine Sulfate IVPUSH 2 mg Q4H PRN Administration PAIN LEVEL 6-10 ASSESSMENT/PLAN: Problem List - Problems (1) Abdominal pain Assessment/Plan: Abdominal pain CT scan shows possible internal hernia on ABD CT scan (mesenteric edema in a swirling pattern suggesting internal hernia). Patient is s/p diagnostic laproscopy converted to open, internal hernia reduction and closure of mesenteric defect on 12/12/2019. On Zosyn per ID, given Vancomycin 1.5 grams for gram positive cocci in clusters in one blood culture bottle Maintain NPO continue IVF pain management incentive spirometer Code(s): R10.9 - UNSPECIFIED ABDOMINAL PAIN Qualifiers: Abdominal location: unspecified location Qualified Code(s): R10.9 - Unspecified abdominal pain (2) Pelvic pain Code(s): R10.2 - PELVIC AND PERINEAL PAIN (3) Bacteremia Assessment/Plan: Aerobic blood culture drawn 12/12/2019 growing gram positive cocci in clusters. discussed with ID. Recommend one dose of vancomycin 1.5grams now. blood cultures repeated and pending to confirm findings. Code(s): R78.81 - BACTEREMIA (4) DVT prophylaxis Assessment/Plan: SCDs incentive spirometer protonix 40mg iv push daily Code(s): Z29.9 - ENCOUNTER FOR PROPHYLACTIC MEASURES, UNSPECIFIED Visit type - Emergency Visit Emergency Visit: Yes ED Registration Date: 12/12/19 Care time: The patient presented to the Emergency Department on the above date and was hospitalized for further evaluation of their emergent condition. - New Patient This patient is new to me today: No - Critical Care Critical Care patient: No - Discharge Referral Referred to [facility] No
[2019-12-13] MEDS: ACETAMINOPHEN 1000 MG/100 ML VIAL (NON FORMULARY) IVPB PRN (18:37)
[2019-12-14] MEDS: MORPHINE SULFATE 2 MG/ML VIAL IVPUSH PRN ×4 (04:22→20:29)
[2019-12-14 08:40] LABS: BASO % 0.3 % (0-2.0); EOS % 0.8 % (0-4.5); HEMATOCRIT 27.5 % (32.4-45.2); HEMOGLOBIN 9.5 GM/dL (10.7-15.3); LYMPH % 15.6 % (8-40); MCH 33.1 pg (25.7-33.7); MCHC 34.5 g/dl (32.0-36.0); MEAN CELL VOLUME 95.8 fl (80-96); MEAN PLT VOLUME 9.5 fl (7.5-11.1); MONO % 8.2 % (3.8-10.2); NEUT % 75.1 % (42.8-82.8); PLATELET COUNT 171 K/MM3 (134-434); RBC 2.87 M/mm3 (3.60-5.2); WHITE BLOOD COUNT 5.8 K/mm3 (4.0-10.0)
[2019-12-14 09:01] LABS: ALBUMIN 2.4 g/dl (3.4-5.0); BILIRUBIN,TOTAL 0.9 mg/dL (0.2-1); BLOOD UREA NITROGEN 4.8 mg/dL (7-18); CALCIUM 8.2 mg/dL (8.5-10.1); MAGNESIUM 2.5 mg/dL (1.8-2.4); POTASSIUM 3.3 mmol/L (3.5-5.1); TOT PROT 5.5 g/dl (6.4-8.2)
--- NOTE | 2019-12-14 09:28 | PN ---
Progress Note, Physician History of Present Illness: stable no new issues awaiting for identification of the organism - Current Medication List Current Medications: Active Medications Enoxaparin Sodium (Lovenox -) 40 mg SQ DAILY [facility] Last Admin: 12/13/19 09:10 Dose: 40 mg Documented by: Fentanyl (Sublimaze Injection -) 50 mcg IVPUSH [id number] PRN PRN Reason: PAIN-PACU ORDER X 4 DOSES ONLY Last Admin: 12/12/19 22:00 Dose: 50 mcg Documented by: Hydromorphone HCl (Hydromorphone 10 Mg/50 Ml-Ns) 10 mg BUTTON MACHINE OPERATOR BUTTON MACHINE OPERATOR [facility]; Protocol Stop: 12/20/19 08:49 Last Admin: 12/13/19 11:47 Dose: 10 mg Documented by: Lactated Ringer's (Lactated Ringers Solution) 1,000 ml in 1,000 mls @ 125 mls/hr IV ASDIR MARY Last Admin: 12/13/19 23:43 Dose: 125 mls/hr Documented by: Piperacillin Sod/Tazobactam (Sod 3.375 gm/ Dextrose) 50 mls @ 100 mls/hr IVPB Q8H-IV MARY; Protocol Ketorolac Tromethamine (Toradol Injection -) 15 mg IVPUSH Q4H PRN PRN Reason: PAIN LEVEL 6-10 Stop: 12/17/19 09:18 Lorazepam (Ativan Injection -) 0.5 mg IVPUSH BID PRN PRN Reason: ANXIETY Morphine Sulfate (Morphine Sulfate) 2 mg IVPUSH Q4H PRN PRN Reason: PAIN LEVEL 6-10 Last Admin: 12/14/19 04:22 Dose: 2 mg Documented by: - Objective Vital Signs: Vital Signs Temperature 99.4 F 12/14/19 06:00 Pulse Rate 99 H 12/14/19 06:00 Respiratory Rate 22 H 12/14/19 06:00 Blood Pressure 137/82 12/14/19 06:00 O2 Sat by Pulse Oximetry (%) 100 12/14/19 02:09 Constitutional: Yes: Calm, Mild Distress Cardiovascular: Yes: S1, S2 Respiratory: Yes: Regular, CTA Bilaterally Gastrointestinal: Yes: Normal Bowel Sounds, Soft Musculoskeletal: Yes: WNL Extremities: Yes: WNL Neurological: Yes: Alert, Oriented Psychiatric: Yes: Alert, Oriented Labs: CBC, BMP 12/14/19 07:40 12/14/19 07:40 INR, PTT INR 1.20 (0.83-1.09) H 12/12/19 17:00 Assessment/Plan Problem List - Problems (1) Abdominal pain Code(s): R10.9 - UNSPECIFIED ABDOMINAL PAIN Qualifiers: Abdominal location: unspecified location Qualified Code(s): R10.9 - Unspecified abdominal pain (2) Pelvic pain Code(s): R10.2 - PELVIC AND PERINEAL PAIN mesenteric edema internal hernia plan post op patient with pain otherwise stable continue hydration npo abx rest as per surgical team
--- NOTE | 2019-12-14 09:43 | PN ---
Progress Note (short form) - Note Progress Note: s/p ex lap for internal hernia feeling better VSS exam soft nontender incision clean and dry doing well DC PPCA OOB Pain managment with nonnarcotics
[2019-12-14] MEDS ORDERED: DEXTROSE 5%-WATER - 50 ML IVPB ONE ×2 (09:56→17:10)
[2019-12-14] MEDS ORDERED: PIPERACILLIN/TAZOBACTAM 3.375 GM VIAL IVPB ONE ×2 (09:56→17:10)
[2019-12-14] MEDS: PIPERACILLIN/TAZOB 3.375 GM 3.375 GM in DEXTROSE 5%-WATER - 50 ML IVPB SCH ×2 (10:01→17:21)
[2019-12-14] MEDS: ENOXAPARIN NA (PORCINE) 40 MG/0.4 ML DISP.SYRIN SQ SCH (10:01)
[2019-12-14] MEDS ORDERED: PCA PUMP NR ONE (10:06)
[2019-12-14] MEDS: LACTATED RINGERS SOLUTION 1,000 ML/1,000 ML INFUS.BAG IV SCH ×2 (10:18→18:49)
[2019-12-14] MEDS: HYDROmorphone *PCA* 10MG/50ML DISP.SYRIN PCA SCH (10:32)
[2019-12-14] MEDS: KCL 10 MEQ IVPB 10 MEQ/100 ML INFUS.BAG IVPB SCH ×2 (13:00→14:17)
[2019-12-14] MEDS: oxyCODONE HCL 5 MG TABLET PO PRN (13:57)
--- NOTE | 2019-12-14 16:35 | PN.GI ---
GI Progress Note Subjective: POD 2. S/P Diagnostic laproscopy converted to open, internal hernia reduction and closure of mesenteric defect. Scant amount of blood per rectum today. Pain improved. No BM/Flatus as of yet. - Objective Vital Signs: Vital Signs Temperature 98.7 F 12/14/19 15:00 Pulse Rate 94 H 12/14/19 15:00 Respiratory Rate 20 12/14/19 15:00 Blood Pressure 138/79 12/14/19 15:00 O2 Sat by Pulse Oximetry (%) 97 12/14/19 15:00 Constitutional: Calm Eyes: No: Sclera Icterus Cardiovascular: Yes: Regular Rate and Rhythm Respiratory: Yes: Diminished (at bases bilaterally with poor insp effort) Gastrointestinal Inspection: Yes: Other (midline surgical scar with sonia) ...Auscultate: Yes: Hypoactive Bowel Sounds ...Palpate: Yes: Tenderness (tenderness to palpation mid abdomen adjacent to surgical scar) Edema: No (No LE edema) Neurological: Yes: Alert Labs: CBC, BMP 12/14/19 07:40 12/14/19 07:40 INR, PTT INR 1.20 (0.83-1.09) H 12/12/19 17:00 Problem List - Problems (1) Abdominal pain Assessment/Plan: Diagnostic laproscopy converted to open with internal hernia reduction and closure of mesenteric defect. Post op care per surgery Incentive spirometry Monitor for overt bleeding Code(s): R10.9 - UNSPECIFIED ABDOMINAL PAIN Qualifiers: Abdominal location: unspecified location Qualified Code(s): R10.9 - Unspecified abdominal pain
--- NOTE | 2019-12-14 17:48 | PN ---
Physical Exam: SUBJECTIVE: Patient seen and examined. Pain controlled but still having some gas pain. she is ambulating to the bathroom. OBJECTIVE: Patient is a 39 year old female admitted on 12/12/2019 for generalized lower abdominal pain left side worse than right. Sharp, worse with movement. patient has hx of ectopic and tubal blockade. CT scan shows partial SBO and internal hernia. Patient is s/p diagnostic laproscopy converted to open, internal hernia reduction and closure of mesenteric defect on 12/12/2019. Vital Signs Period Temp Pulse Resp BP Sys/Carpio Pulse Ox Last 24 Hr 98.7 F-99.5 F 86-104 20-22 137-158/77-94 97-100 GENERAL: The patient is awake, alert, and fully oriented, in no acute distress HEAD: Normal with no signs of trauma. EYES: PERRL, extraocular movements intact, sclera anicteric, conjunctiva clear. No ptosis. ENT: Ears normal, nares patent, oropharynx clear without exudates, moist mucous membranes. NECK: Trachea midline, full range of motion, supple. LUNGS: Breath sounds equal, clear to auscultation bilaterally HEART: Regular rate and rhythm ABDOMEN: mildly distended, abdominal sonia intact EXTREMITIES: no edema. NEUROLOGICAL: Normal speech, gait not observed. Laboratory Results - last 24 hr 12/12/19 12/14/19 12/14/19 01:55 07:40 07:40 WBC 5.8 RBC 2.87 L Hgb 9.5 L Hct 27.5 L D MCV 95.8 MCH 33.1 MCHC 34.5 RDW 14.0 Plt Count 171 MPV 9.5 Absolute Neuts (auto) 4.3 Neutrophils % 75.1 Lymphocytes % 15.6 D Monocytes % 8.2 Eosinophils % 0.8 Basophils % 0.3 Nucleated RBC % 0 Sodium 141 Potassium 3.3 L Chloride 106 Carbon Dioxide 25 Anion Gap 10 BUN 4.8 L Creatinine 1.0 Est GFR (CKD-EPI)AfAm 83.35 Est GFR (CKD-EPI)NonAf 71.91 Random Glucose 93 Calcium 8.2 L Magnesium 2.5 H Total Bilirubin 0.9 AST 25 ALT 10 L Alkaline Phosphatase 50 Total Protein 5.5 L Albumin 2.4 L C. trachomatis (DOREEN) Negative N. gonorrhoeae (DOREEN) Negative Active Medications Generic Name Dose Route Start Last Admin Trade Name Freq PRN Reason Stop Dose Admin Enoxaparin Sodium 40 mg 12/13/19 10:00 12/14/19 10:01 Lovenox - SQ 40 mg DAILY MARY Administration Lactated Ringer's 1,000 ml in 1,000 mls @ 125 mls/hr 12/12/19 21:30 12/14/19 10:18 Lactated Ringers Solution IV 125 mls/hr ASDIR MARY Administration Piperacillin Sod/Tazobactam 50 mls @ 100 mls/hr 12/14/19 10:00 12/14/19 17:21 Sod 3.375 gm/ Dextrose IVPB 100 mls/hr Q8H-IV MARY Administration Protocol Ketorolac Tromethamine 15 mg 12/12/19 21:26 Toradol Injection - IVPUSH 12/17/19 09:18 Q4H PRN PAIN LEVEL 6-10 Lorazepam 0.5 mg 12/12/19 21:26 Ativan Injection - IVPUSH BID PRN ANXIETY Morphine Sulfate 2 mg 12/12/19 21:19 12/14/19 14:07 Morphine Sulfate IVPUSH 2 mg Q4H PRN Administration PAIN LEVEL 6-10 Oxycodone HCl 5 mg 12/14/19 09:44 Roxicodone - PO Q4H PRN PAIN LEVEL 1-5 Oxycodone HCl 10 mg 12/14/19 09:44 Roxicodone - PO Q4H PRN PAIN LEVEL 6-10 ASSESSMENT/PLAN: Problem List - Problems (1) Abdominal pain Assessment/Plan: Abdominal pain CT scan shows possible internal hernia on ABD CT scan (mesenteric edema in a swirling pattern suggesting internal hernia). Patient is s/p diagnostic laproscopy converted to open, internal hernia reduction and closure of mesenteric defect on 12/12/2019. On Zosyn per ID, given Vancomycin 1.5 grams on 12/13/2019 per ID for gram positive cocci in clusters in one blood culture bottle. cultures repeated and pending Maintain NPO continue IVF pain management incentive spirometer Code(s): R10.9 - UNSPECIFIED ABDOMINAL PAIN Qualifiers: Abdominal location: unspecified location Qualified Code(s): R10.9 - Unspecified abdominal pain (2) Pelvic pain Code(s): R10.2 - PELVIC AND PERINEAL PAIN (3) Bacteremia Assessment/Plan: Aerobic blood culture drawn 12/12/2019 growing gram positive cocci in clusters. Patient given one dose of vancomyicn 1.5 grams on 12/12 and blood cultures repeated and pending to confirm findings. on zosyn per ID Code(s): R78.81 - BACTEREMIA (4) DVT prophylaxis Assessment/Plan: SCDs incentive spirometer protonix 40mg iv push daily Code(s): Z29.9 - ENCOUNTER FOR PROPHYLACTIC MEASURES, UNSPECIFIED Visit type - Emergency Visit Emergency Visit: Yes ED Registration Date: 12/12/19 Care time: The patient presented to the Emergency Department on the above date and was hospitalized for further evaluation of their emergent condition. - New Patient This patient is new to me today: No - Critical Care Critical Care patient: No - Discharge Referral Referred to [facility] No
[2019-12-14] MEDS: PANTOPRAZOLE 40 MG TABLET PO ONE ×2 (18:34→18:40)
[2019-12-14] MEDS ORDERED: PANTOPRAZOLE SODIUM 40 MG in SODIUM CHLORIDE 100 ML IVPB SCH (18:45)
[2019-12-14] MEDS: PANTOPRAZOLE SODIUM 40 MG VIAL IVPUSH SCH (18:50)
[2019-12-15] MEDS ORDERED: ACETAMINOPHEN 1000 MG/100 ML VIAL (NON FORMULARY) IVPB ONE (00:15)
[2019-12-15] MEDS ORDERED: PIPERACILLIN/TAZOBACTAM 3.375 GM VIAL IVPB ONE ×2 (02:04→09:44)
[2019-12-15] MEDS ORDERED: DEXTROSE 5%-WATER - 50 ML IVPB ONE ×2 (02:05→09:44)
[2019-12-15] MEDS: PIPERACILLIN/TAZOB 3.375 GM 3.375 GM in DEXTROSE 5%-WATER - 50 ML IVPB SCH ×2 (02:29→09:53)
[2019-12-15] MEDS: MORPHINE SULFATE 2 MG/ML VIAL IVPUSH PRN ×2 (02:29→07:05)
[2019-12-15] MEDS: LACTATED RINGERS SOLUTION 1,000 ML/1,000 ML INFUS.BAG IV SCH ×3 (03:40→19:00)
[2019-12-15 08:56] LABS: BASO % 0.3 % (0-2.0); EOS % 2.1 % (0-4.5); HEMATOCRIT 26.4 % (32.4-45.2); LYMPH % 21.7 % (8-40); MCH 32.6 pg (25.7-33.7); MCHC 34.1 g/dl (32.0-36.0); MEAN CELL VOLUME 95.8 fl (80-96); NEUT % 65.9 % (42.8-82.8); PLATELET COUNT 205 K/MM3 (134-434); RBC 2.76 M/mm3 (3.60-5.2); RDW 13.9 % (11.6-15.6); WHITE BLOOD COUNT 4.4 K/mm3 (4.0-10.0)
[2019-12-15 09:27] LABS: ALBUMIN 2.4 g/dl (3.4-5.0); BILIRUBIN,TOTAL 0.6 mg/dL (0.2-1); CALCIUM 8.4 mg/dL (8.5-10.1); MAGNESIUM 2.3 mg/dL (1.8-2.4); POTASSIUM 3.3 mmol/L (3.5-5.1); TOT PROT 5.4 g/dl (6.4-8.2)
[2019-12-15 09:29] LABS: BLOOD UREA NITROGEN 7.6 mg/dL (7-18)
[2019-12-15] MEDS: PANTOPRAZOLE SODIUM 40 MG VIAL IVPUSH SCH (09:53)
[2019-12-15] MEDS: ENOXAPARIN NA (PORCINE) 40 MG/0.4 ML DISP.SYRIN SQ SCH (09:53)
[2019-12-15] MEDS ORDERED: PANTOPRAZOLE SODIUM 40 MG in SODIUM CHLORIDE 100 ML IVPB SCH (10:00)
[2019-12-15] MEDS: oxyCODONE HCL 5 MG TABLET PO PRN ×3 (10:07→16:42)
--- NOTE | 2019-12-15 10:19 | PN ---
Progress Note (short form) - Note Progress Note: SURGERY 39yo M s/p ex-lap for internal hernia, POD 2. Pt seen and examined at bedside. Pt states her abd pain is improved. Pt denies n/v, fever, chills. Pt states she is passing flatus, denies BM. Last Vital Signs Temp Pulse Resp BP Pulse Ox 98.5 F 83 20 143/83 100 12/15/19 07:27 12/15/19 07:27 12/15/19 07:27 12/15/19 07:27 12/15/19 07:27 CBC, BMP 12/15/19 08:16 12/15/19 08:16 PE: Gen: A&OX 3 Resp: breathing comfortably Abd: soft, mild incisional tenderness, incision clean with no erythema or discharge. Ext: no edema Problem List - Problems (1) Obstruction concurrent with and due to internal hernia of abdomen Assessment/Plan: Plan -pt appears to be improving, will start on clears. -cont oob/ambulate -pain control -dvt ppx Pt discussed with Dr. Rico who agrees with plan Code(s): K46.0 - UNSP ABDOMINAL HERNIA WITH OBSTRUCTION, WITHOUT GANGRENE
--- NOTE | 2019-12-15 11:37 | PN ---
Progress Note, Physician History of Present Illness: stable no new issues - Current Medication List Current Medications: Active Medications Enoxaparin Sodium (Lovenox -) 40 mg SQ DAILY [facility] Last Admin: 12/15/19 09:53 Dose: 40 mg Documented by: Lactated Ringer's (Lactated Ringers Solution) 1,000 ml in 1,000 mls @ 125 mls/hr IV ASDIR MARY Last Admin: 12/15/19 10:45 Dose: 125 mls/hr Documented by: Piperacillin Sod/Tazobactam (Sod 3.375 gm/ Dextrose) 50 mls @ 100 mls/hr IVPB Q8H-IV MARY; Protocol Last Admin: 12/15/19 09:53 Dose: 100 mls/hr Documented by: Ketorolac Tromethamine (Toradol Injection -) 15 mg IVPUSH Q4H PRN PRN Reason: PAIN LEVEL 6-10 Stop: 12/17/19 09:18 Lorazepam (Ativan Injection -) 0.5 mg IVPUSH BID PRN PRN Reason: ANXIETY Morphine Sulfate (Morphine Sulfate) 2 mg IVPUSH Q4H PRN PRN Reason: PAIN LEVEL 6-10 Last Admin: 12/15/19 07:05 Dose: 2 mg Documented by: Oxycodone HCl (Roxicodone -) 5 mg PO Q4H PRN PRN Reason: PAIN LEVEL 1-5 Oxycodone HCl (Roxicodone -) 10 mg PO Q4H PRN PRN Reason: PAIN LEVEL 6-10 Pantoprazole Sodium (Protonix Iv) 40 mg IVPUSH DAILY [facility] Last Admin: 12/15/19 09:53 Dose: 40 mg Documented by: - Objective Vital Signs: Vital Signs Temperature 98.2 F 12/15/19 10:00 Pulse Rate 81 12/15/19 10:00 Respiratory Rate 20 12/15/19 10:00 Blood Pressure 137/81 12/15/19 10:00 O2 Sat by Pulse Oximetry (%) 99 12/15/19 10:00 Constitutional: Yes: No Distress, Calm Cardiovascular: Yes: S1, S2 Respiratory: Yes: Regular, CTA Bilaterally Gastrointestinal: Yes: Soft, Hypoactive Bowel Sounds, Tenderness Musculoskeletal: Yes: WNL Extremities: Yes: WNL Neurological: Yes: Alert, Oriented Psychiatric: Yes: Alert, Oriented Labs: CBC, BMP 12/15/19 08:16 12/15/19 08:16 INR, PTT INR 1.20 (0.83-1.09) H 12/12/19 17:00 Assessment/Plan Problem List - Problems (1) Abdominal pain Code(s): R10.9 - UNSPECIFIED ABDOMINAL PAIN Qualifiers: Abdominal location: unspecified location Qualified Code(s): R10.9 - Unspecified abdominal pain (2) Pelvic pain Code(s): R10.2 - PELVIC AND PERINEAL PAIN mesenteric edema internal hernia plan continue as per surgery will stop abx and monitor rest as per the team
--- NOTE | 2019-12-15 16:05 | PN ---
Physical Exam: SUBJECTIVE: Patient seen and examined. Tells me that she is ambulating around the room and feels well, no shortness of breath and pain is controlled. OBJECTIVE: Patient is a 39 year old female admitted on 12/12/2019 for generalized lower abdominal pain left side worse than right. Sharp, worse with movement. patient has hx of ectopic and tubal blockade. CT scan showed partial SBO and internal hernia. Patient is s/p diagnostic laproscopy converted to open, internal hernia reduction and closure of mesenteric defect on 12/12/[address] Garber. covid status: negative as if 12/12/2019 Vital Signs Period Temp Pulse Resp BP Sys/Carpio Pulse Ox Last 24 Hr 98.2 F-100.1 F 76-99 18-20 137-143/79-86 95-100 GENERAL: The patient is awake, alert, and fully oriented, in no acute distress. tolerating room air. HEAD: Normal with no signs of trauma. EYES: PERRL, extraocular movements intact, sclera anicteric, conjunctiva clear. No ptosis. ENT: Ears normal, nares patent, oropharynx clear without exudates, moist mucous membranes. NECK: Trachea midline, full range of motion, supple. LUNGS: Breath sounds equal, clear to auscultation bilaterally HEART: Regular rate and rhythm ABDOMEN: mildly distended, abdominal sonia intact EXTREMITIES: no edema. NEUROLOGICAL: Normal speech, gait not observed. Laboratory Results - last 24 hr 12/15/19 12/15/19 08:16 08:16 WBC 4.4 RBC 2.76 L Hgb 9.0 L Hct 26.4 L MCV 95.8 MCH 32.6 MCHC 34.1 RDW 13.9 Plt Count 205 MPV 9.0 Absolute Neuts (auto) 2.9 Neutrophils % 65.9 Lymphocytes % 21.7 D Monocytes % 10.0 Eosinophils % 2.1 D Basophils % 0.3 Nucleated RBC % 0 Sodium 143 Potassium 3.3 L Chloride 110 H Carbon Dioxide 25 Anion Gap 8 BUN 7.6 Creatinine 1.0 Est GFR (CKD-EPI)AfAm 83.35 Est GFR (CKD-EPI)NonAf 71.91 Random Glucose 94 Calcium 8.4 L Magnesium 2.3 Total Bilirubin 0.6 AST 23 ALT 13 Alkaline Phosphatase 48 Total Protein 5.4 L Albumin 2.4 L Active Medications Generic Name Dose Route Start Last Admin Trade Name Freq PRN Reason Stop Dose Admin Enoxaparin Sodium 40 mg 12/13/19 10:00 12/15/19 09:53 Lovenox - SQ 40 mg DAILY MARY Administration Lactated Ringer's 1,000 ml in 1,000 mls @ 125 mls/hr 12/12/19 21:30 12/15/19 10:45 Lactated Ringers Solution IV 125 mls/hr ASDIR MARY Administration Ketorolac Tromethamine 15 mg 12/12/19 21:26 Toradol Injection - IVPUSH 12/17/19 09:18 Q4H PRN PAIN LEVEL 6-10 Lorazepam 0.5 mg 12/12/19 21:26 Ativan Injection - IVPUSH BID PRN ANXIETY Morphine Sulfate 2 mg 12/12/19 21:19 12/15/19 07:05 Morphine Sulfate IVPUSH 2 mg Q4H PRN Administration PAIN LEVEL 6-10 Oxycodone HCl 5 mg 12/14/19 09:44 Roxicodone - PO Q4H PRN PAIN LEVEL 1-5 Oxycodone HCl 10 mg 12/14/19 09:44 12/15/19 10:07 Roxicodone - PO 10 mg Q4H PRN Administration PAIN LEVEL 6-10 Pantoprazole Sodium 40 mg 12/14/19 18:45 12/15/19 09:53 Protonix Iv IVPUSH 40 mg DAILY MARY Administration ASSESSMENT/PLAN: Problem List - Problems (1) Abdominal pain Assessment/Plan: Abdominal pain, improved. CT scan shows possible internal hernia on ABD CT scan (mesenteric edema in a swirling pattern suggesting internal hernia). Patient is s/p diagnostic laproscopy converted to open, internal hernia reduction and closure of mesenteric defect on 12/12/2019. Completed Zosyn. Given Vancomycin 1.5 grams on 12/13/2019 per ID for gram positive cocci in clusters in one blood culture bottle. Repeat blood cultures were negative and now antibiotics discontinued. Started on clears by surgery continue IVF hydration, discontinue once tolerating full diet pain management with oxycodone based on pain scale incentive spirometer Code(s): R10.9 - UNSPECIFIED ABDOMINAL PAIN Qualifiers: Abdominal location: unspecified location Qualified Code(s): R10.9 - Unsp ecified abdominal pain (2) Internal hernia Assessment/Plan: CT scan shows possible internal hernia on ABD CT scan (mesenteric edema in a swirling pattern suggesting internal hernia). Patient is s/p diagnostic laproscopy converted to open, internal hernia reduction and closure of mesenteric defect on 12/12/2019. Code(s): K45.8 - OTH ABDOMINAL HERNIA WITHOUT OBSTRUCTION OR GANGRENE (3) Bacteremia Assessment/Plan: Aerobic blood culture drawn 12/12/2019 growing gram positive cocci in clusters. Patient given one dose of vancomyicn 1.5 grams on 12/12 and blood cultures repeated and negative. per ID, stop antibiotics and monitor off. Code(s): R78.81 - BACTEREMIA (4) DVT prophylaxis Assessment/Plan: SCDs incentive spirometer protonix 40mg iv push daily Lovenox 40mg daily full code physical therapy to avoid decompensation Code(s): Z29.9 - ENCOUNTER FOR PROPHYLACTIC MEASURES, UNSPECIFIED Visit type - Emergency Visit Emergency Visit: Yes ED Registration Date: 12/12/19 Care time: The patient presented to the Emergency Department on the above date and was hospitalized for further evaluation of their emergent condition. - New Patient This patient is new to me today: No - Critical Care Critical Care patient: No - Discharge Referral Referred to [facility] No
[2019-12-16] MEDS: oxyCODONE HCL 5 MG TABLET PO PRN ×5 (00:33→21:54)
[2019-12-16] MEDS: LACTATED RINGERS SOLUTION 1,000 ML/1,000 ML INFUS.BAG IV SCH ×3 (05:59→12:22)
[2019-12-16 07:34] LABS: BASO % 0.5 % (0-2.0); EOS % 3.2 % (0-4.5); HEMOGLOBIN 8.8 GM/dL (10.7-15.3); LYMPH % 30.5 % (8-40); MCH 32.2 pg (25.7-33.7); MCHC 33.7 g/dl (32.0-36.0); MEAN CELL VOLUME 95.7 fl (80-96); MEAN PLT VOLUME 8.4 fl (7.5-11.1); MONO % 9.4 % (3.8-10.2); NEUT % 56.4 % (42.8-82.8); PLATELET COUNT 252 K/MM3 (134-434); RBC 2.71 M/mm3 (3.60-5.2); RDW 14.2 % (11.6-15.6); WHITE BLOOD COUNT 3.9 K/mm3 (4.0-10.0)
[2019-12-16 07:55] LABS: ALBUMIN 2.4 g/dl (3.4-5.0); BILIRUBIN,TOTAL 0.7 mg/dL (0.2-1); BLOOD UREA NITROGEN 6.2 mg/dL (7-18); CALCIUM 8.4 mg/dL (8.5-10.1); CREATININE 0.9 mg/dL (0.55-1.3); MAGNESIUM 2.1 mg/dL (1.8-2.4); POTASSIUM 3.1 mmol/L (3.5-5.1); TOT PROT 5.4 g/dl (6.4-8.2)
[2019-12-16] MEDS: PANTOPRAZOLE SODIUM 40 MG VIAL IVPUSH SCH (09:13)
[2019-12-16] MEDS: ENOXAPARIN NA (PORCINE) 40 MG/0.4 ML DISP.SYRIN SQ SCH (09:13)
--- NOTE | 2019-12-16 09:16 | PN ---
Progress Note, Physician Chief Complaint: feeling better reports flatus History of Present Illness: s/p ex lap for internal hernia - Current Medication List Current Medications: Active Medications Enoxaparin Sodium (Lovenox -) 40 mg SQ DAILY [facility] Last Admin: 12/16/19 09:13 Dose: 40 mg Documented by: Lactated Ringer's (Lactated Ringers Solution) 1,000 ml in 1,000 mls @ 125 mls/hr IV ASDIR [facility] Last Admin: 12/16/19 05:59 Dose: 125 mls/hr Documented by: Oxycodone HCl (Roxicodone -) 5 mg PO Q4H PRN PRN Reason: PAIN LEVEL 1-5 Oxycodone HCl (Roxicodone -) 10 mg PO Q4H PRN PRN Reason: PAIN LEVEL 6-10 Last Admin: 12/16/19 05:59 Dose: 10 mg Documented by: Pantoprazole Sodium (Protonix Iv) 40 mg IVPUSH DAILY [facility] Last Admin: 12/16/19 09:13 Dose: 40 mg Documented by: - Objective Vital Signs: Vital Signs Temperature 98.9 F 12/16/19 09:13 Pulse Rate 72 12/16/19 09:13 Respiratory Rate 20 12/16/19 09:13 Blood Pressure 140/89 12/16/19 09:13 O2 Sat by Pulse Oximetry (%) 100 12/16/19 09:13 Labs: CBC, BMP 12/16/19 06:51 12/16/19 06:51 INR, PTT INR 1.20 (0.83-1.09) H 12/12/19 17:00 Problem List - Problems (1) Internal hernia Code(s): K45.8 - OTH ABDOMINAL HERNIA WITHOUT OBSTRUCTION OR GANGRENE Assessment/Plan doing well continue clears consider advancing diet
--- NOTE | 2019-12-16 12:28 | PN ---
Progress Note, Physician History of Present Illness: stable doing well tolerating clears - Current Medication List Current Medications: Active Medications Enoxaparin Sodium (Lovenox -) 40 mg SQ DAILY [facility] Last Admin: 12/16/19 09:13 Dose: 40 mg Documented by: Lactated Ringer's (Lactated Ringers Solution) 1,000 ml in 1,000 mls @ 125 mls/hr IV ASDIR [facility] Last Admin: 12/16/19 12:22 Dose: 125 mls/hr Documented by: Oxycodone HCl (Roxicodone -) 5 mg PO Q4H PRN PRN Reason: PAIN LEVEL 1-5 Oxycodone HCl (Roxicodone -) 10 mg PO Q4H PRN PRN Reason: PAIN LEVEL 6-10 Last Admin: 12/16/19 12:20 Dose: 10 mg Documented by: Pantoprazole Sodium (Protonix Iv) 40 mg IVPUSH DAILY [facility] Last Admin: 12/16/19 09:13 Dose: 40 mg Documented by: - Objective Vital Signs: Vital Signs Temperature 98.9 F 12/16/19 09:13 Pulse Rate 72 12/16/19 09:13 Respiratory Rate 20 12/16/19 09:13 Blood Pressure 140/89 12/16/19 09:13 O2 Sat by Pulse Oximetry (%) 100 12/16/19 09:13 Constitutional: Yes: No Distress, Calm Cardiovascular: Yes: Tachycardia, S1, S2 Respiratory: Yes: Regular, CTA Bilaterally Gastrointestinal: Yes: Normal Bowel Sounds, Soft Musculoskeletal: Yes: WNL Extremities: Yes: WNL Neurological: Yes: Alert, Oriented Psychiatric: Yes: Alert, Oriented Labs: CBC, BMP 12/16/19 06:51 12/16/19 06:51 INR, PTT INR 1.20 (0.83-1.09) H 12/12/19 17:00 Assessment/Plan Problem List - Problems (1) Abdominal pain Code(s): R10.9 - UNSPECIFIED ABDOMINAL PAIN Qualifiers: Abdominal location: unspecified location Qualified Code(s): R10.9 - Unspecified abdominal pain (2) Pelvic pain Code(s): R10.2 - PELVIC AND PERINEAL PAIN mesenteric edema internal hernia plan continue as per surgery rest as per the team
--- NOTE | 2019-12-16 20:18 | PN ---
Progress Note, Physician History of Present Illness: seen and examined. Endorses she had 2 BMs one this AM and one the PM. She states it was watery and black. Hb dropping to 8.8 today from 12.2 on admission. HD stable. Patient does not want to advance diet yet. Maybe tomorrow per patient. passing flatus. Denies nausea vomiting fever chills chest pain or SOB. Stool studies negative so far. - Current Medication List Current Medications: Active Medications Enoxaparin Sodium (Lovenox -) 40 mg SQ DAILY [facility] Last Admin: 12/16/19 09:13 Dose: 40 mg Documented by: Lactated Ringer's (Lactated Ringers Solution) 1,000 ml in 1,000 mls @ 125 mls/hr IV ASDIR [facility] Last Admin: 12/16/19 12:22 Dose: 125 mls/hr Documented by: Oxycodone HCl (Roxicodone -) 5 mg PO Q4H PRN PRN Reason: PAIN LEVEL 1-5 Last Admin: 12/16/19 18:48 Dose: 5 mg Documented by: Oxycodone HCl (Roxicodone -) 10 mg PO Q4H PRN PRN Reason: PAIN LEVEL 6-10 Last Admin: 12/16/19 12:20 Dose: 10 mg Documented by: Pantoprazole Sodium (Protonix Iv) 40 mg IVPUSH DAILY [facility] Last Admin: 12/16/19 09:13 Dose: 40 mg Documented by: - Objective Vital Signs: Vital Signs Temperature 98.4 F 12/16/19 15:03 Pulse Rate 78 12/16/19 15:03 Respiratory Rate 20 12/16/19 15:03 Blood Pressure 135/85 12/16/19 15:03 O2 Sat by Pulse Oximetry (%) 98 12/16/19 15:03 Constitutional: Yes: Well Nourished, No Distress, Calm Eyes: Yes: Other (conjunctival pallor) HENT: Yes: Atraumatic, Normocephalic, Other (Moist oral mucosa) Neck: Yes: Supple Cardiovascular: Yes: Regular Rate and Rhythm Respiratory: Yes: WNL, Regular, CTA Bilaterally Gastrointestinal: Yes: Normal Bowel Sounds, Soft, Tenderness (incisional). No: Distention Edema: No Wound/Incision: Yes: Clean/Dry, Well Approximated, [place] Intact (open to air) Neurological: Yes: Alert, Oriented, Cran Nerves II-XII Intact ...Motor Strength: WNL Psychiatric: Yes: Alert, Oriented Labs: CBC, BMP 12/16/19 06:51 12/16/19 06:51 INR, PTT INR 1.20 (0.83-1.09) H 12/12/19 17:00 Impression/Plan Impression/Plan: ABD pain 2/[address] scan shows possible internal hernia on ABD CT scan (mesenteric edema in a swirling pattern suggesting internal hernia). POD#4 s/p diagnostic laproscopy converted to open, internal hernia reduction and closure of mesenteric defect on 12/12/2019. Completed Zosyn. Given Vancomycin 1.5 grams on 12/13/2019 per ID for gram positive cocci in clusters but stopped as it is likely contaminant-staph hominis Repeat blood cultures were negative and now antibiotics discontinued. continue clears continue IVF hydration but decrease from 125ml/hr to 75ml/hr as patient is urinating a lot. pain management with oxycodone based on pain scale incentive spirometer PT consult ambulate leukopenia- WBC 3.9 afebrile. monitor CBC daily Anemia: black watery stools could be residual monitor H/H daily transfuse PRN GI consult noted no overy bleeding Bacteremia Assessment/Plan: Aerobic blood culture drawn 12/12/2019 growing gram positive cocci in clusters. Patient given one dose of vancomyicn 1.5 grams on 12/12 and blood cultures repeated and negative. per ID, stop antibiotics and monitor off. staph hominis likely contaminant DVT prophylaxis SCDs incentive spirometer protonix 40mg iv push daily PT consult Lovenox 40mg daily Visit type - Emergency Visit Emergency Visit: Yes ED Registration Date: 12/12/19 Care time: The patient presented to the Emergency Department on the above date and was hospitalized for further evaluation of their emergent condition. - New Patient This patient is new to me today: Yes Date on this admission: 12/16/19 - Critical Care Critical Care patient: No
[2019-12-16] MEDS ORDERED: LACTATED RINGERS SOLUTION 1,000 ML/1,000 ML INFUS.BAG IV SCH (20:31)
[2019-12-16] MEDS: POTASSIUM CHLORIDE TABS 20 MEQ TABLET.ER (FP) PO SCH (21:50)
[2019-12-16] MEDS ORDERED: POTASSIUM CHLORIDE TABS 20 MEQ TABLET.ER (FP) PO SCH (22:00)
--- NOTE | 2019-12-17 08:09 | PN ---
Progress Note, Physician Chief Complaint: Reports Bms and flatus History of Present Illness: s/p ex lap and repair of internal hernia - Current Medication List Current Medications: Active Medications Enoxaparin Sodium (Lovenox -) 40 mg SQ DAILY [facility] Last Admin: 12/16/19 09:13 Dose: 40 mg Documented by: Lactated Ringer's (Lactated Ringers Solution) 1,000 ml in 1,000 mls @ 75 mls/hr IV ASDIR [facility] Last Admin: 12/16/19 21:50 Dose: 75 mls/hr Documented by: Oxycodone HCl (Roxicodone -) 5 mg PO Q4H PRN PRN Reason: PAIN LEVEL 1-5 Last Admin: 12/16/19 18:48 Dose: 5 mg Documented by: Oxycodone HCl (Roxicodone -) 10 mg PO Q4H PRN PRN Reason: PAIN LEVEL 6-10 Last Admin: 12/16/19 21:54 Dose: 10 mg Documented by: Pantoprazole Sodium (Protonix Iv) 40 mg IVPUSH DAILY [facility] Last Admin: 12/16/19 09:13 Dose: 40 mg Documented by: Potassium Chloride (K-Dur -) 40 meq PO BID [facility] Stop: 12/17/19 10:01 Last Admin: 12/16/19 21:50 Dose: 40 meq Documented by: - Objective Vital Signs: Vital Signs Temperature 99.1 F 12/17/19 06:00 Pulse Rate 84 12/17/19 06:00 Respiratory Rate 20 12/17/19 06:00 Blood Pressure 131/82 12/17/19 06:00 O2 Sat by Pulse Oximetry (%) 97 12/17/19 06:00 Labs: CBC, BMP 12/16/19 06:51 12/16/19 06:51 INR, PTT INR 1.20 (0.83-1.09) H 12/12/19 17:00 Problem List - Problems (1) Internal hernia Code(s): K45.8 - OTH ABDOMINAL HERNIA WITHOUT OBSTRUCTION OR GANGRENE Assessment/Plan doing well advance diet and clear for discharge if she tolerates diet
[2019-12-17] MEDS: oxyCODONE HCL 5 MG TABLET PO PRN ×4 (08:27→22:15)
[2019-12-17 09:06] LABS: BASO % 0.5 % (0-2.0); EOS % 2.6 % (0-4.5); HEMATOCRIT 27.7 % (32.4-45.2); HEMOGLOBIN 9.4 GM/dL (10.7-15.3); LYMPH % 30.8 % (8-40); MCH 32.4 pg (25.7-33.7); MEAN CELL VOLUME 95.4 fl (80-96); MEAN PLT VOLUME 8.5 fl (7.5-11.1); MONO % 10.6 % (3.8-10.2); NEUT % 55.5 % (42.8-82.8); PLATELET COUNT 331 K/MM3 (134-434); RBC 2.91 M/mm3 (3.60-5.2); WHITE BLOOD COUNT 4.1 K/mm3 (4.0-10.0)
[2019-12-17 09:38] LABS: ALBUMIN 2.6 g/dl (3.4-5.0); BILIRUBIN,TOTAL 0.3 mg/dL (0.2-1); BLOOD UREA NITROGEN 4.2 mg/dL (7-18); CALCIUM 8.7 mg/dL (8.5-10.1); POTASSIUM 3.6 mmol/L (3.5-5.1); TOT PROT 5.8 g/dl (6.4-8.2)
[2019-12-17] MEDS: ENOXAPARIN NA (PORCINE) 40 MG/0.4 ML DISP.SYRIN SQ SCH (10:36)
[2019-12-17] MEDS: PANTOPRAZOLE SODIUM 40 MG VIAL IVPUSH SCH (10:36)
[2019-12-17] MEDS: POTASSIUM CHLORIDE TABS 20 MEQ TABLET.ER (FP) PO SCH (10:36)
--- NOTE | 2019-12-17 11:41 | PN ---
Progress Note, Physician History of Present Illness: stable no new issues - Current Medication List Current Medications: Active Medications Enoxaparin Sodium (Lovenox -) 40 mg SQ DAILY [facility] Last Admin: 12/17/19 10:36 Dose: 40 mg Documented by: Lactated Ringer's (Lactated Ringers Solution) 1,000 ml in 1,000 mls @ 75 mls/hr IV ASDIR [facility] Last Admin: 12/16/19 21:50 Dose: 75 mls/hr Documented by: Oxycodone HCl (Roxicodone -) 5 mg PO Q4H PRN PRN Reason: PAIN LEVEL 1-5 Last Admin: 12/16/19 18:48 Dose: 5 mg Documented by: Oxycodone HCl (Roxicodone -) 10 mg PO Q4H PRN PRN Reason: PAIN LEVEL 6-10 Last Admin: 12/17/19 08:27 Dose: 10 mg Documented by: Pantoprazole Sodium (Protonix Iv) 40 mg IVPUSH DAILY [facility] Last Admin: 12/17/19 10:36 Dose: 40 mg Documented by: - Objective Vital Signs: Vital Signs Temperature 99.1 F 12/17/19 06:00 Pulse Rate 84 12/17/19 06:00 Respiratory Rate 20 12/17/19 06:00 Blood Pressure 131/82 12/17/19 06:00 O2 Sat by Pulse Oximetry (%) 97 12/17/19 06:00 Constitutional: Yes: No Distress, Calm Cardiovascular: Yes: S1, S2 Respiratory: Yes: Regular, CTA Bilaterally Gastrointestinal: Yes: Normal Bowel Sounds, Soft Musculoskeletal: Yes: WNL Extremities: Yes: WNL Neurological: Yes: Alert, Oriented Psychiatric: Yes: Alert, Oriented Labs: CBC, BMP 12/17/19 08:30 12/17/19 08:30 INR, PTT INR 1.20 (0.83-1.09) H 12/12/19 17:00 Assessment/Plan Problem List - Problems (1) Abdominal pain Code(s): R10.9 - UNSPECIFIED ABDOMINAL PAIN Qualifiers: Abdominal location: unspecified location Qualified Code(s): R10.9 - Unspecified abdominal pain (2) Pelvic pain Code(s): R10.2 - PELVIC AND PERINEAL PAIN mesenteric edema internal hernia plan continue as per surgery rest as per the team
--- NOTE | 2019-12-17 18:33 | PN ---
Progress Note, Physician History of Present Illness: seen and examined. Endorses she had 2 BMs one this AM and one the PM. She states it was watery and black. Hb stable at 9.4 today and it was 8.8 yesterday from 12.2 on admission. HD stable. Patient advanced to regular diet this AM and has tolerated it well. She ate fruit, bread, and mashed potatoes. BMs more formed today and less black. Turning more and more brown. passing flatus. Denies nausea vomiting fever chills chest pain or SOB. Ambulating. Stool studies negative so far. - Current Medication List Current Medications: Active Medications Enoxaparin Sodium (Lovenox -) 40 mg SQ DAILY [facility] Last Admin: 12/17/19 10:36 Dose: 40 mg Documented by: Oxycodone HCl (Roxicodone -) 5 mg PO Q4H PRN PRN Reason: PAIN LEVEL 1-5 Last Admin: 12/17/19 16:58 Dose: 5 mg Documented by: Oxycodone HCl (Roxicodone -) 10 mg PO Q4H PRN PRN Reason: PAIN LEVEL 6-10 Last Admin: 12/17/19 18:14 Dose: 5 mg Documented by: Pantoprazole Sodium (Protonix Iv) 40 mg IVPUSH DAILY [facility] Last Admin: 12/17/19 10:36 Dose: 40 mg Documented by: - Objective Vital Signs: Vital Signs Temperature 97.9 F 12/17/19 14:00 Pulse Rate 63 12/17/19 14:00 Respiratory Rate 20 12/17/19 14:00 Blood Pressure 172/90 H 12/17/19 14:00 O2 Sat by Pulse Oximetry (%) 100 12/17/19 14:00 Constitutional: Yes: Well Nourished, No Distress, Calm Eyes: Yes: Other (conjunctival pallor) HENT: Yes: Atraumatic, Normocephalic, Other (Moist oral mucosa) Neck: Yes: Supple Cardiovascular: Yes: Regular Rate and Rhythm Respiratory: Yes: WNL, Regular, CTA Bilaterally Gastrointestinal: Yes: Normal Bowel Sounds, Soft, Tenderness (incisional). No: Distention Edema: No Wound/Incision: Yes: Clean/Dry, Well Approximated, [place] Intact (open to air) Neurological: Yes: Alert, Oriented, Cran Nerves II-XII Intact ...Motor Strength: WNL Psychiatric: Yes: Alert, Oriented Labs: CBC, BMP 12/17/19 08:30 12/17/19 08:30 INR, PTT INR 1.20 (0.83-1.09) H 12/12/19 17:00 Impression/Plan Impression/Plan: ABD pain 2/[address] scan shows possible internal hernia on ABD CT scan (mesenteric edema in a swirling pattern suggesting internal hernia). POD#4 s/p diagnostic laproscopy converted to open, internal hernia reduction and closure of mesenteric defect on 12/12/2019. Completed Zosyn. Given Vancomycin 1.5 grams on 12/13/2019 per ID for gram positive cocci in clusters but stopped as it is likely contaminant-staph hominis Repeat blood cultures were negative and now antibiotics discontinued. Regular diet pain management with oxycodone based on pain scale incentive spirometer PT consult ambulate leukopenia- WBC 3.9 afebrile. monitor CBC daily Anemia: black watery stools could be residual monitor H/H daily transfuse PRN GI consult noted no overy bleeding Bacteremia Assessment/Plan: Aerobic blood culture drawn 12/12/2019 growing gram positive cocci in clusters. Patient given one dose of vancomyicn 1.5 grams on 12/12 and blood cultures repeated and negative. per ID, stop antibiotics and monitor off. staph hominis likely contaminant DVT prophylaxis SCDs incentive spirometer protonix 40mg iv push daily PT consult Lovenox 40mg daily Discharge tomorrow Visit type - Emergency Visit Emergency Visit: Yes ED Registration Date: 12/12/19 Care time: The patient presented to the Emergency Department on the above date and was hospitalized for further evaluation of their emergent condition. - New Patient This patient is new to me today: No - Critical Care Critical Care patient: No
[2019-12-18] MEDS: oxyCODONE HCL 5 MG TABLET PO PRN ×2 (06:22→12:05)
[2019-12-18] MEDS: PANTOPRAZOLE SODIUM 40 MG VIAL IVPUSH SCH (09:08)
[2019-12-18] MEDS: ENOXAPARIN NA (PORCINE) 40 MG/0.4 ML DISP.SYRIN SQ SCH (09:09)
[2019-12-18 09:57] VITALS: BP 155/96; PULSE 71; TEMP 98.1
--- NOTE | 2019-12-18 10:19 | PN ---
Progress Note (short form) - Note Progress Note: SURGERY 39yo M s/p ex-lap for internal hernia Pt seen and examined at bedside. Pt states her abd pain is improved. Pt denies n/v, fever, chills. Pt states she is passing flatus, and having water BM. Pt tolerating regular diet. Pt asking to go home. Last Vital Signs Temp Pulse Resp BP Pulse Ox 98.1 F 71 20 155/96 100 12/18/19 09:56 12/18/19 09:56 12/18/19 09:56 12/18/19 09:56 12/18/19 09:56 PE: Gen: A&OX 3 Resp: breathing comfortably Abd: soft, mild incisional tenderness, incision clean with no erythema or discharge. Ext: no edema Problem List - Problems (1) Obstruction concurrent with and due to internal hernia of abdomen Assessment/Plan: Plan -pt appears to be doing well, pt cleared for discharge home -pt should follow up Wednesday with Dr. Rico for postop check and staple removal. Pt discussed with Dr. Rico who agrees with plan Code(s): K46.0 - UNSP ABDOMINAL HERNIA WITH OBSTRUCTION, WITHOUT GANGRENE
[2019-12-18 10:21] LABS: BASO % 0.3 % (0-2.0); EOS % 2.4 % (0-4.5); HEMATOCRIT 27.8 % (32.4-45.2); HEMOGLOBIN 9.3 GM/dL (10.7-15.3); MCH 31.9 pg (25.7-33.7); MCHC 33.3 g/dl (32.0-36.0); MEAN CELL VOLUME 95.7 fl (80-96); MEAN PLT VOLUME 8.6 fl (7.5-11.1); MONO % 8.2 % (3.8-10.2); NEUT % 62.1 % (42.8-82.8); PLATELET COUNT 376 K/MM3 (134-434); RDW 13.9 % (11.6-15.6); WHITE BLOOD COUNT 4.3 K/mm3 (4.0-10.0)
[2019-12-18 10:55] LABS: ALBUMIN 2.5 g/dl (3.4-5.0); BILIRUBIN,TOTAL 0.2 mg/dL (0.2-1); CALCIUM 8.5 mg/dL (8.5-10.1); MAGNESIUM 2.1 mg/dL (1.8-2.4); POTASSIUM 3.7 mmol/L (3.5-5.1); TOT PROT 5.8 g/dl (6.4-8.2)
--- NOTE | 2019-12-18 11:33 | PN ---
Progress Note, Physician History of Present Illness: stable no new issues - Current Medication List Current Medications: Active Medications Enoxaparin Sodium (Lovenox -) 40 mg SQ DAILY [facility] Last Admin: 12/18/19 09:09 Dose: 40 mg Documented by: Oxycodone HCl (Roxicodone -) 5 mg PO Q4H PRN PRN Reason: PAIN LEVEL 1-5 Last Admin: 12/17/19 16:58 Dose: 5 mg Documented by: Oxycodone HCl (Roxicodone -) 10 mg PO Q4H PRN PRN Reason: PAIN LEVEL 6-10 Last Admin: 12/18/19 06:22 Dose: 10 mg Documented by: Pantoprazole Sodium (Protonix Iv) 40 mg IVPUSH DAILY [facility] Last Admin: 12/18/19 09:08 Dose: 40 mg Documented by: - Objective Vital Signs: Vital Signs Temperature 98.1 F 12/18/19 09:56 Pulse Rate 71 12/18/19 09:56 Respiratory Rate 20 12/18/19 09:56 Blood Pressure 155/96 12/18/19 09:56 O2 Sat by Pulse Oximetry (%) 100 12/18/19 09:56 Constitutional: Yes: No Distress, Calm Cardiovascular: Yes: S1, S2 Respiratory: Yes: Regular, CTA Bilaterally Gastrointestinal: Yes: Normal Bowel Sounds, Soft Musculoskeletal: Yes: WNL Extremities: Yes: WNL Neurological: Yes: Alert, Oriented Psychiatric: Yes: Alert, Oriented Labs: CBC, BMP 12/18/19 09:10 12/18/19 09:10 INR, PTT INR 1.20 (0.83-1.09) H 12/12/19 17:00 Assessment/Plan Problem List - Problems (1) Abdominal pain Code(s): R10.9 - UNSPECIFIED ABDOMINAL PAIN Qualifiers: Abdominal location: unspecified location Qualified Code(s): R10.9 - Unspecified abdominal pain (2) Pelvic pain Code(s): R10.2 - PELVIC AND PERINEAL PAIN mesenteric edema internal hernia plan continue as per surgery rest as per the team
[2019-12-18 11:49] LABS: BLOOD UREA NITROGEN 2.3 mg/dL (7-18)
--- NOTE | 2019-12-18 11:52 | DS ---
Physical Exam: SUBJECTIVE: Patient seen and examined OBJECTIVE: Patient is a 39 year old female admitted on 12/12/2019 for generalized lower abdominal pain left side worse than right. Sharp, worse with movement. patient has hx of ectopic and tubal blockade. CT scan showed partial SBO and internal hernia. Patient is s/p diagnostic laproscopy converted to open, internal hernia reduction and closure of mesenteric defect on 12/12/[address] Garber. During hospital stay, patient treated by ID on broad spectrum antibiotics (Zosyn). Patient had one positive blood culture bottle and given Vancomycin 1,500mg one dose. Blood cultures were repeated and are negative. She as tolerated advancement of her diet and will be discharged home today with outpatient surgery follow up. Blood pressures during hospital stay were above goal, but patient has a BP monitor at home and agrees to take her BP daily and write in a log book and present to her PCP. She will follow up with her PCP to determine if she needs to start on anti hypertensives. Will defer starting antihypertensives here are elevated BP may due to pain, recent surgery and anxiety. covid status: negative as if 12/12/2019 Vital Signs Period Temp Pulse Resp BP Sys/Carpio Pulse Ox Last 24 Hr 97.9 F-99.0 F 63-81 20-20 139-172/90-96 96-100 PHYSICAL EXAM GENERAL: The patient is awake, alert, and fully oriented, in no acute distress. tolerating room air. HEAD: Normal with no signs of trauma. EYES: PERRL, extraocular movements intact, sclera anicteric, conjunctiva clear. No ptosis. ENT: Ears normal, nares patent, oropharynx clear without exudates, moist mucous membranes. NECK: Trachea midline, full range of motion, supple. LUNGS: Breath sounds equal, clear to auscultation bilaterally HEART: Regular rate and rhythm ABDOMEN: non distended, abdominal sonia intact, +bowel sounds EXTREMITIES: no edema. NEUROLOGICAL: Normal speech, gait not observed. LABS Laboratory Results - last 24 hr 12/18/19 12/18/19 09:10 09:10 WBC 4.3 RBC 2.90 L Hgb 9.3 L Hct 27.8 L MCV 95.7 MCH 31.9 MCHC 33.3 RDW 13.9 Plt Count 376 MPV 8.6 Absolute Neuts (auto) 2.7 Neutrophils % 62.1 Lymphocytes % 27.0 Monocytes % 8.2 Eosinophils % 2.4 Basophils % 0.3 Nucleated RBC % 0 Sodium 143 Potassium 3.7 Chloride 105 Carbon Dioxide 31 Anion Gap 7 L BUN 2.3 L* Creatinine 1.0 Est GFR (CKD-EPI)AfAm 83.35 Est GFR (CKD-EPI)NonAf 71.91 Random Glucose 93 Calcium 8.5 Magnesium 2.1 Total Bilirubin 0.2 AST 35 ALT 26 Alkaline Phosphatase 48 Total Protein 5.8 L Albumin 2.5 L HOSPITAL COURSE: Date of Admission:12/12/19 Date of Discharge: 12/18/19 Minutes to complete discharge: 60 Discharge Summary Problems reviewed: Yes Reason For Visit: ABDOMINAL PAIN Current Active Problems Abdominal pain (Acute) Bacteremia (Acute) DVT prophylaxis (Acute) Internal hernia (Acute) Obstruction concurrent with and due to internal hernia of abdomen (Acute) Pelvic pain (Acute) Condition: Stable - Instructions Diet, Activity, Other Instructions: Dr. Rico Discharge Instructions Dear LEILANI GRAY, Post Operative Instructions Physical activity Resume your normal everyday activity as tolerated no heavy lifting or exercise until seen by your surgeon. You may walk unlimited amounts of and climb stairs. You may resume driving the car when you feel safe and comfortable behind the wheel. Wound care If you have a bandage, leave it on, and keep dry for 48 - 72 hours. After that time discard the outer bandage. If there are tapes on the skin under the outer bandage, leave them in place. They will peel off in the next 7 to 10 days. Do Not peel them off. You may shower 2 days after surgery. If there are tapes present on the skin, they can get wet. Diet There are no dietary restrictions. Eat healthy, high-fiber foods. Drink 6 to 8 glasses of liquid each day. This will assist in keeping your bowels are regular. Pain management You may take Tylenol or acetaminophen or Ibuprofen (for example, Motrin, Advil etc.) Any pain prescription medication ordered should be taken as prescribed for moderate to severe pain. Call Dr. Rico for any of the following: Severe pain not relieved by medication Fever of 101 or higher Excessive bleeding or drainage on dressing Inability to urinate Call the office for a post operative appointment on Wednesday12/22/19. Hypertension, borderline We have been monitoring your blood pressures and you have been having labile blood pressures. What is labile blood pressures? Labile blood pressures are blood pressures that are high at some readings and then low on other readings. Sometimes when someone is anxious or in pain it may affect their blood pressures. Best thing to do is for you to check your blood pressure once per day at home at the same time daily. Write down the reading and present the readings to your primary care doctor. Your PCP will determine if you need a blood pressure medication. Please follow up with your PCP within 1-2 weeks after discharge. Referrals: Juan Rico [Staff Physician] - Disposition: HOME - Home Medications Comprehensive Discharge Medication List: Ambulatory Orders Triamcinolone 0.5% Cream [Aristocort 0.5% Cream -] 1 applic TP TID #1 tube 05/17/19 predniSONE [Deltasone -] 40 mg PO DAILY #10 tablet 05/17/19 oxyCODONE HCL [Roxicodone -] 5 mg PO Q6H PRN #10 tablet MDD 6 12/18/19 Problem List - Problems (1) Abdominal pain Assessment/Plan: Abdominal pain, resolved CT scan shows possible internal hernia on ABD CT scan (mesenteric edema in a swirling pattern suggesting internal hernia). Patient is s/p diagnostic laproscopy converted to open, internal hernia reduction and closure of mesenteric defect on 12/12/2019. Completed Zosyn. Given Vancomycin 1.5 grams on 12/13/2019 per ID for gram positive cocci in clusters in one blood culture bottle. Repeat blood cultures were negative and now antibiotics discontinued. Tolerated diet pain management with oxycodone based on pain scale incentive spirometer outpatient follow up with surgery Code(s): R10.9 - UNSPECIFIED ABDOMINAL PAIN Qualifiers: Abdominal location: unspecified location Qualified Code(s): R10.9 - Un specified abdominal pain (2) Internal hernia Assessment/Plan: CT scan shows possible internal hernia on ABD CT scan (mesenteric edema in a swirling pattern suggesting internal hernia). Patient is s/p diagnostic laproscopy converted to open, internal hernia reduction and closure of mesenteric defect on 12/12/2019. Code(s): K45.8 - OTH ABDOMINAL HERNIA WITHOUT OBSTRUCTION OR GANGRENE (3) Bacteremia Assessment/Plan: resolved. aerobic blood culture drawn 12/12/2019 growing gram positive cocci in clusters. Patient given one dose of vancomyicn 1.5 grams on 12/12 and blood cultures repeated and negative. per ID, stop antibiotics and monitor off. Code(s): R78.81 - BACTEREMIA (4) Borderline hypertension Assessment/Plan: patient to followup with her PCP. Code(s): R03.0 - ELEVATED BLOOD-PRESSURE READING, W/O DIAGNOSIS OF HTN (5) DVT prophylaxis Assessment/Plan: Code(s): Z29.9 - ENCOUNTER FOR PROPHYLACTIC MEASURES, UNSPECIFIED This patient is new to me today: No Emergency Visit: Yes ED Registration Date: 12/12/19 Care time: The patient presented to the Emergency Department on the above date and was hospitalized for further evaluation of their emergent condition. Critical Care patient: No - Discharge Referral Referred to [facility] Med [facility] No
== END 2019-12-18 15:43 | disposition home or self-care (01) | DRG 358 ==
LOC: JER 20:35 → JERBED 12-12 04:04 → J8W 12-12 08:07
PROVIDERS: ADMIT Internal Medicine; ATTEND Nurse Practitioner Family
PROC: 0DQV0ZZ Repair Mesentery, Open Approach (ICD-10-PCS; principal; 2019-12-12 18:30)
DX: K46.0 Unspecified abdominal hernia with obstruction, without gangrene (principal); N83.209 Unspecified ovarian cyst, unspecified side; D25.9 Leiomyoma of uterus, unspecified; R50.9 Fever, unspecified; Z53.31 Laparoscopic surgical procedure converted to open procedure; D64.9 Anemia, unspecified; D72.819 Decreased white blood cell count, unspecified; R03.0 Elevated blood-pressure reading, without diagnosis of hypertension
CPT/HCPCS: 36415; 71046-TC-FY; 74018-TC-FY; 74019-TC-FY; 74177-TC; 76830-TC; 80053; 81003; 82150; 83605; 83690; 83735; 83993; 84100; 84443; 84703; 85025; 85610; 86850; 86900; 86901; 87040; 87045; 87046; 87086; 87186; 87324; 87449; 87491; 87591; 87798; 93005; 93010; 94760; 97116-GP; 97161-GP; 99285-25; J0131; U0003

== ENCOUNTER 2020-03-24 22:43 | Emergency (ER) | payer OTHER ==
[2020-03-24 22:48] VITALS: BP 132/84; PULSE 63; TEMP 98.1; BMI 30.2
[2020-03-25] MEDS ORDERED: ACETAMINOPHEN 325 MG TABLET (FP) PO ONE (00:08)
[2020-03-25] MEDS ORDERED: ACETAMINOPHEN 325 MG TABLET (FP) ONE (00:12)
== END 2020-03-25 02:40 | disposition home or self-care (01) ==
LOC: JER 22:43
DX: H92.01 Otalgia, right ear (principal)
CPT/HCPCS: 70450-TC; 70480-TC; 99284-25

== ENCOUNTER 2021-12-08 11:37 | Emergency (ER) | payer OTHER ==
[2021-12-08 11:42] VITALS: BP 133/78; PULSE 105; RESP 17; TEMP 98.2; BMI 29.2
[2021-12-08] MEDS ORDERED: KETOROLAC TROMETHAMINE 60 MG/2 ML VIAL IM ONE (12:33)
[2021-12-08] MEDS ORDERED: KETOROLAC TROMETHAMINE 30 MG/1 ML VIAL ONE (12:37)
== END 2021-12-08 12:45 | disposition home or self-care (01) ==
LOC: JERFT 11:37
PROC: 3E0233Z Introduction of Anti-inflammatory into Muscle, Percutaneous Approach (ICD-10-PCS; principal; 2021-12-08)
DX: M79.671 Pain in right foot (principal)
CPT/HCPCS: 99283-25